=== PATIENT | male | born 1945 | race Caucasian/White ===

== ENCOUNTER 2023-08-27 19:20 | Observation (INO) | payer OTHER, SELFPAY ==
[2023-08-27 19:21] VITALS: BP 94/77; PULSE 81; RESP 17; TEMP 37; O2SAT 99; BMI 27.4
--- NOTE | 2023-08-27 19:28 | EKG12_ITS ---
Test Reason : SYNCOPE Blood Pressure : / mmHG Vent. Rate : 080 BPM Atrial Rate : 080 BPM P-R Int : 162 ms QRS Dur : 094 ms QT Int : 378 ms P-R-T Axes : 060 016 037 degrees QTc Int : 435 ms Sinus rhythm with occasional Premature ventricular complexes Nonspecific ST abnormality Abnormal ECG Confirmed by VIRAJ COATES, LEANNE ([id number]), offline editor ALAINA MCKEON ([id number]) on 08/28/2023 11:41:12 AM Referred By: Confirmed By:LEANNE CALI MD
--- NOTE | 2023-08-27 19:29 | RAD_ITS ---
INDICATION: chest pain EXAMINATION/TECHNIQUE: X-RAY - XR Chest 1 View COMPARISON: None. FINDINGS: The lungs are clear. Tortuous and calcified thoracic aorta. The heart is mildly enlarged. No pleural effusion or pneumothorax. Degenerative changes of the thoracic spine and shoulders. RAD/Chest 1 View (Portable) IMPRESSION: No acute radiographic abnormalities. Electronically Signed: Erwin Edwards MD at 21:25 EDT ,
[2023-08-27 19:35] LABS: Absolute Lymphocyte Count 1.68 X10^3/uL (0.83-4.51); Basophil# 0.04 X10^3/uL; Basophil% 0.6 % (0-1); Eosinophil# 0.17 X10^3/uL; Eosinophils% 2.7 % (0-5); Hematocrit 32.4 % (40-54); Hemoglobin 11.2 g/dL (13.0-16.5); Lymphocyte # 1.68 X10^3/ul (0.83-4.51); Lymphocyte % 26.3 % (19-41); Mean Corp Hgb Conc 34.6 g/dL (32-36); Mean Corpuscular Hgb 32.9 pg (27.0-32.0); Mean Corpuscular Volume 95.3 fL (80-94); Mean Platelet Vol. 9.2 fl (6.2-12.0); Monocyte# 0.46 X10^3/uL; Monocyte% 7.2 % (0-10); NRBC Flagged by Analyzer 0 % (0-5); Neutrophil # 4.01 X10^3/uL (2.7-7.7); Neutrophil % 62.9 % (47-70); Platelet Count 137 K/mm3 (150-450); RBC Distribution Width SD 44.8 fl (35.1-43.9); White Blood Count 6.4 K/mm3 (4.4-11.0)
[2023-08-27 20:12] LABS: Anion Gap 4 (5-15); BUN 23 mg/dL (7-18); BUN/Creat Ratio 17.4 RATIO (10-20); Calcium,Total 8.6 mg/dL (8.5-10.1); Chloride 113 mmol/L (98-107); Creatinine, Serum 1.32 mg/dL (0.70-1.30); EST Glomerular Filtration Rate 56 mL/min (>60); Est Glom Filt Rate - Afr Amer 67 mL/min (>60); Glucose 124 mg/dL (74-106); Potassium 3.9 mmol/L (3.5-5.1); Sodium Level 143 mmol/L (136-145); Troponin-I HS 12 pg/mL (3.0-78.0)
[2023-08-27 20:21] VITALS: BP 127/67; PULSE 79; RESP 16; O2SAT 98
--- NOTE | 2023-08-27 20:44 | EDS_ITS ---
HPI History of Present Illness Chief Complaint: Syncope Narrative Narrative: 78-year-old male presenting after an episode of syncope. He is unable to narrow down the timeframe completely but states that recently he has been noting that when he does work around the house he has been getting chest pain so bad that he has to stop and rest he describes it as sharp and aching in the central portion of his chest and a half to rest until he gets better. He states he has a family history of cardiac disease from his father. He states he has not seen a doctor in 10 or 20 years. He takes vitamins at home. He states today he did a lot of work around his house and was going to walk next-door and while he was walking up the driveway was having very severe chest pain and became short of breath to the point that he fainted and he was near the road and somebody found him about 5 minutes later. He states he woke up and was still having chest pain and then was transported by EMS and estimates he might of had another 5 to 10 minutes of chest pain prior to arriving at [facility]. [facility] Medical History Chronic anemia CKD (chronic kidney disease), stage III Thrombocytopenia Medical History no medical history Home Medications NK 08/27/23 [History Last Taken Unknown] Allergy/AdvReac Type Severity Reaction Status Date / Time No Known Allergies Allergy Verified 08/27/23 19:21 Family History (Updated 08/27/23 @ 22:[address] Mely Redman MD) Father Heart disease CAD (coronary artery disease) Hypertension Mother No problems noted. Surgical History (Updated 08/27/23 @ 22:[address] Mely Redman MD) No history of previous surgery Surgical History no surgical history Social History (Updated 08/27/23 @ 22:[address] Mely Redman MD) household members: none Smoking Status: Never smoker alcohol intake: never substance use type: does not use ROS ROS ED Constitutional Constitutional ED: Denies chills, fever(s) or sweats Eyes Eyes: Denies blurry vision or change in vision ENT ENT ED: Denies ear pain or sore throat Cardiovascular Cardiovascular: Reports chest pain; Denies palpitations or racing heartbeat Respiratory/Chest Respiratory/Chest: Denies cough, dyspnea or sputum Gastrointestinal Gastrointestinal: Denies abdominal pain, constipation, diarrhea, nausea or vomiting Genitourinary Genitourinary ED: Denies dysuria, hematuria or urinary frequency Musculoskeletal Musculoskeletal: Denies arthralgias, myalgias or neck pain Integumentary Denies abscess, Abrasions or rash Neurologic Neurologic: Denies headache(s), paresthesias or weakness Psychiatric Psychiatric: Denies anxiety, depression, suicidal ideation or suicidal thoughts Endocrine Endocrinology: Denies polydipsia or polyuria EXAM Physical Exam Const Vital Signs: 08/27/23 19:21 08/27/23 19:21 08/27/23 19:38 Temperature 98.6 F Temperature Source Temporal Pulse Rate 81 Pulse Rate [Sitting (for 1 minute prior to obtaining)] Pulse Rate [Standing (for 1 minute prior to obtaining)] Respiratory Rate 17 Respiratory Effort Normal Non-Labored Respiratory Pattern Normal Blood Pressure 94/77 Blood Pressure [Lying] Blood Pressure [Sitting (for 1 minute prior to obtaining)] Blood Pressure [Standing (for 1 minute prior to obtaining)] Blood Pressure Mean 82 Blood Pressure Mean [Lying] Blood Pressure Mean [Sitting (for 1 minute prior to obtaining)] Blood Pressure Mean [Standing (for 1 minute prior to obtaining)] Pulse Ox 99 Oxygen Delivery Method Room Air Nasal Cannula 08/27/23 20:21 08/27/23 21:01 08/27/23 21:00 Temperature Temperature Source Pulse Rate 79 87 Pulse Rate [Sitting (for 1 minute prior to obtaining)] 85 Pulse Rate [Standing (for 1 minute prior to obtaining)] 87 Respiratory Rate 16 18 Respiratory Effort Respiratory Pattern Blood Pressure 127/67 H 128/64 H Blood Pressure [Lying] 132/65 H Blood Pressure [Sitting (for 1 minute prior to obtaining)] 134/71 H Blood Pressure [Standing (for 1 minute prior to obtaining)] 128/64 H Blood Pressure Mean 87 85 Blood Pressure Mean [Lying] 87 Blood Pressure Mean [Sitting (for 1 minute prior to obtaining)] 92 Blood Pressure Mean [Standing (for 1 minute prior to obtaining)] 85 Pulse Ox 98 100 Oxygen Delivery Method Room Air Room Air 08/27/23 22:00 Temperature 97.6 F L Temperature Source Pulse Rate 72 Pulse Rate [Sitting (for 1 minute prior to obtaining)] Pulse Rate [Standing (for 1 minute prior to obtaining)] Respiratory Rate 13 Respiratory Effort Respiratory Pattern Blood Pressure 167/70 H Blood Pressure [Lying] Blood Pressure [Sitting (for 1 minute prior to obtaining)] Blood Pressure [Standing (for 1 minute prior to obtaining)] Blood Pressure Mean 102 Blood Pressure Mean [Lying] Blood Pressure Mean [Sitting (for 1 minute prior to obtaining)] Blood Pressure Mean [Standing (for 1 minute prior to obtaining)] Pulse Ox 98 Oxygen Delivery Method Positive well nourished General Appearance ED: NAD; Negative for pallor HEENT Reports moist mucous membranes Eyes PERRL and EOMs intact bilaterally Chest Wall inspection of chest normal Resp normal respiratory effort and clear to auscultation bilaterally Auscultation: Negative for rales, rhonchi or wheezes Cardio regular rate and regular rhythm GI normal to inspection, nondistended, normoactive bowel sounds Neuro oriented x3 and CN's II-XII intact bilaterally Sensorium / Orientation: alert Skin no rashes or lesions noted General Skin Exam: Negative for jaundice or pallor MDM MDM MDM Narrative Medical decision making narrative: Patient presenting with chest pain on exertion which she has had on and off recently. He had an episode of syncope today and had a lot of chest pain and shortness of breath prior. Differential includes ACS, dehydration, pneumonia. Anemia, electrolyte abnormality, syncope, dysrhythmia. CBC was obtained to assess white blood cell count, hemoglobin, platelets. BMP to assess renal function, electrolytes, glucose. High-sensitivity troponin EKG to assess for ischemia. Chest x-ray to rule out pneumonia. CBC shows normal white blood cell count 6.4. Hemoglobin 0.2. Platelets 137. Creatinine slightly elevated 1.32 there was no comparison. Initial troponin 12. Delta troponin 43 for persistent today significant troponin change. EKG on my interpretation showed a sinus rhythm at 80 bpm without sign of ischemic change or chest x-ray on my interpretation showed no acute process. The radiologist agrees. Discussed with hospitalist for admission. Impression: 1. Chest pain 2. Elevated troponin Lab Data Attestation: I reviewed the patient's lab results. Labs: Laboratory Results - last 24 hr 08/27/23 08/27/23 19:26 21:29 WBC 6.4 RBC 3.40 L Hgb 11.2 L Hct 32.4 L MCV 95.3 H MCH 32.9 H MCHC 34.6 RDW Std Deviation 44.8 H RDW Coeff of Greg 13.0 Plt Count 137 L MPV 9.2 Immature Gran % (Auto) 0.300 Neut % (Auto) 62.9 Lymph % (Auto) 26.3 [place] % (Auto) 7.2 Eos % (Auto) 2.7 Baso % (Auto) 0.6 Absolute Neuts (auto) 4.0 Absolute Lymphs (auto) 1.68 Nucleated RBC % 0 Sodium 143 Potassium 3.9 Chloride 113 H Carbon Dioxide 26.0 Anion Gap 4 L BUN 23 H Creatinine 1.32 H Estim Creat Clear Calc 43.90 Est GFR (MDRD) Af Amer 67 Est GFR (MDRD) Non-Af 56 L BUN/Creatinine Ratio 17.4 Glucose 124 H Calcium 8.6 Troponin I High Sens 12 43 Radiography Diagnostic Testing: Clinical Impression(s) from Imaging Studies Chest X-Ray 08/27/23 19:29 IMPRESSION: No acute radiographic abnormalities. Electronically Signed: Erwin Edwards MD at 21:25 EDT , Discharge Plan Triage Chief Complaint: Syncope ED Provider: Arnulfo Sutherland Dx/Rx/DC Orders Primary Care Provider: Care Physician,No Primary
[2023-08-27 21:00] VITALS: BP 128/64; PULSE 87; RESP 18; O2SAT 100
[2023-08-27 21:01] VITALS: BP 128/64; BP 132/65; BP 134/71; PULSE 85; PULSE 87
[2023-08-27 21:51] LABS: Troponin-I HS 43 pg/mL (3.0-78.0)
[2023-08-27 22:00] VITALS: BP 167/70; PULSE 72; RESP 13; TEMP 36.4; O2SAT 98
--- NOTE | 2023-08-27 22:05 | HP.PCM.HOS_ITS ---
HPI - General General Date of Admission: 08/27/23 Date of Service: 08/27/23 Chief Complaint: Chest pain, dyspnea, syncopal event. HPI Narrative The patient is a 78 y/o M w/ PMHx: Suspected CKD stage III unclear subtype, Chronic anemia who presents to the [facility] ED on 08/27/23 with history of episodes of exertional chest discomfort which started recently over the last 2 months, improving when he rests, described as sharp and aching in the midsternal chest with no specific radiation with associated mild dyspnea with recurrent episode on day of presentation while he was walking up the driveway with similar chest discomfort however dyspnea was more pronounced and he became lightheaded and dizzy and passed out supposedly found approximately 5 minutes following with ongoing chest discomfort upon his awakening with EMS evaluation with admini stration of sublingual nitroglycerin with resolution of chest pain following this after 5 to 10 minutes with transition then to the ED for further evaluation. He notes with this recent events of chest discomfort his pain was rated 10 out of 10 in severity at its worst with dyspnea and some diaphoresis but no nausea or emesis. Currently in the ED he notes he is chest pain-free. Workup in the ED included T98.6, heart rate 81, BP 94/77, respiratory rate 17, 99% on room air, heart rate orthostatics not marked appearing, BP orthostatics not marked appearing either, most recent repeat blood pressure 132/65, CBC with WBC 6.4, hemoglobin 11.2, MCV 95.3, platelet 137 without marked shift, BMP with chloride 113, BUN/creatinine 23/1.32, GFR 56, glucose 124, troponin 12 with repeat delta 43, chest x-ray with no acute cardiopulmonary findings, EKG sinus rhythm with nonspecific ST-T changes with no acute evidence of ischemia. In the ED discussed patient with ED physician requested full-strength aspirin therapy be administered. [facility] Medical History Chronic anemia CKD (chronic kidney disease), stage III Thrombocytopenia Medical History no medical history Home Medications NK 08/27/23 [History Last Taken Unknown] Allergy/AdvReac Type Severity Reaction Status Date / Time No Known Allergies Allergy Verified 08/27/23 19:21 Family History (Updated 08/27/23 @ 22:[address] Mely Redman MD) Father Heart disease CAD (coronary artery disease) Hypertension Mother No problems noted. Surgical History (Updated 08/27/23 @ 22:[address] Mely Redman MD) No history of previous surgery Surgical History no surgical history Social History (Updated 08/27/23 @ 22:[address] Mely Redman MD) household members: none Smoking Status: Never smoker alcohol intake: never substance use type: does not use ROS ROS Narrative Admission Review of Systems: CONSTITUTIONAL: No weight loss, fever, chills, + weakness or fatigue. HEENT: Eyes: No visual loss, blurred vision, double vision or yellow sclerae. Ears, Nose, Throat: No hearing loss, sneezing, congestion, runny nose or sore throat. SKIN: No rash or itching, lesions, wounds. CARDIOVASCULAR: + Chest pain, syncopal event. No palpitations, edema, orthopnea. RESPIRATORY: + Exertional dyspnea with chest discomfort. No cough or sputum, wheezing, hemoptysis. GASTROINTESTINAL: No anorexia, nausea, vomiting or diarrhea, abdominal pain, melena, BRBPR. GENITOURINARY: No dysuria, frequency, urgency or retention. NEUROLOGICAL: No headache, dizziness, syncope, paralysis, ataxia, numbness or tingling in the extremities, focal weakness, change in bowel or bladder control, seizure. MUSCULOSKELETAL: + muscle, back pain, joint pain or stiffness. HEMATOLOGIC: + Possibly chronic anemia, no reported easy bleeding/bruising history. LYMPHATICS: No enlarged nodes. No history of splenectomy. PSYCHIATRIC: No history of depression or anxiety. ENDOCRINOLOGIC: + reports of sweating. No cold or heat intolerance. No polyuria or polydipsia. ALLERGIES: No history of asthma, hives, eczema or rhinitis. Vital Signs Vital Signs Vital Signs: 08/27/23 19:21 08/27/23 19:21 08/27/23 19:38 Temperature 98.6 F Temperature Source Temporal Pulse Rate 81 Pulse Rate [Sitting (for 1 minute prior to obtaining)] Pulse Rate [Standing (for 1 minute prior to obtaining)] Respiratory Rate 17 Respiratory Effort Normal Non-Labored Respiratory Pattern Normal Blood Pressure 94/77 Blood Pressure [Lying] Blood Pressure [Sitting (for 1 minute prior to obtaining)] Blood Pressure [Standing (for 1 minute prior to obtaining)] Blood Pressure Mean 82 Blood Pressure Mean [Lying] Blood Pressure Mean [Sitting (for 1 minute prior to obtaining)] Blood Pressure Mean [Standing (for 1 minute prior to obtaining)] Pulse Ox 99 Oxygen Delivery Method Room Air Nasal Cannula 08/27/23 20:21 08/27/23 21:01 08/27/23 21:00 Temperature Temperature Source Pulse Rate 79 87 Pulse Rate [Sitting (for 1 minute prior to obtaining)] 85 Pulse Rate [Standing (for 1 minute prior to obtaining)] 87 Respiratory Rate 16 18 Respiratory Effort Respiratory Pattern Blood Pressure 127/67 H 128/64 H Blood Pressure [Lying] 132/65 H Blood Pressure [Sitting (for 1 minute prior to obtaining)] 134/71 H Blood Pressure [Standing (for 1 minute prior to obtaining)] 128/64 H Blood Pressure Mean 87 85 Blood Pressure Mean [Lying] 87 Blood Pressure Mean [Sitting (for 1 minute prior to obtaining)] 92 Blood Pressure Mean [Standing (for 1 minute prior to obtaining)] 85 Pulse Ox 98 100 Oxygen Delivery Method Room Air Room Air Weight Weight: 180 lb 5.41 oz Body Mass Index (BMI) 27.4 Physical Exam Narrative Physical Examination: General: Awake, alert, oriented x 3 and cooperative, seated upright in the ED bed in no apparent distress, denies any current chest pain. Skin: Normal color, normal turgor, no icterus, no cyanosis. HEENT: AT/NC, EOMI, PERRLA, mildly dry MM, no carotid bruits or JVD noted. Lungs: Mildly diminished, greater bases, appropriate effort, no rales, ronchi or wheezing. Heart: Regular rate and rhythm; no gallop, rub audible, + SM present. Abdomen: Soft, mildly overweight, NTTP, ND, mildly hyperactive BS, no appreciated HSM. Extremities: No cyanosis, no clubbing, mild ankle not markedly pitting edema present. Neurological: Patient awake, alert, oriented as noted, cognitive function inta ct; pupils equally reactive to light and accommodation, cranial nerves grossly normal, moving all 4 extremities, no focal deficits, strength mildly to moderately globally decreased. Psychiatric: Affect appears fatigued otherwise normal, no acute evidence of depressive or anxiety feelings. Results Lab / Micro Data 08/27/23 19:26 08/27/23 19:26 Labs: Laboratory Results - last 24 hr 08/27/23 19:26: WBC 6.4, RBC 3.40 L, Hgb 11.2 L, Hct 32.4 L, MCV 95.3 H, MCH 32.9 H, MCHC 34.6, RDW Std Deviation 44.8 H, RDW Coeff of Greg 13.0, Plt Count 137 L, MPV 9.2, Immature Gran % (Auto) 0.300, Neut % (Auto) 62.9, Lymph % (Auto) 26.3, [place] % (Auto) 7.2, Eos % (Auto) 2.7, Baso % (Auto) 0.6, Absolute Neuts (auto) 4.0, Absolute Lymphs (auto) 1.68, Nucleated RBC % 0, Sodium 143, Potassium 3.9, Chloride 113 H, Carbon Dioxide 26.0, Anion Gap 4 L, BUN 23 H, Creatinine 1.32 H, Estim Creat Clear Calc 43.90, Est GFR (MDRD) Af Amer 67, Est GFR (MDRD) Non-Af 56 L, BUN/Creatinine Ratio 17.4, Glucose 124 H, Calcium 8.6, Troponin I High Sens 12 08/27/23 21:29: Troponin I High Sens 43 Imaging Radiology Impression Chest X-Ray 08/27/23 19:29 IMPRESSION: No acute radiographic abnormalities. Electronically Signed: Erwin Edwards MD at 21:25 EDT , Assessment & Plan Assessment/Plan (1) Unstable angina: (2) Syncope: PLAN: Plan The patient is a 78 y/o M w/ PMHx: Suspected CKD stage III unclear subtype, Chronic anemia who presents to the [facility] ED on 08/27/23 with history of episodes of exertional chest discomfort which started recently over the last week, improving when he rests, described as sharp and aching in the midsternal chest with no specific radiation with associated mild dyspnea with recurrent episode on day of presentation while he was walking up the driveway with similar chest discomfort however dyspnea was more pronounced and he became lightheaded and dizzy and passed out supposedly found approximately 5 minutes following with ongoing chest discomfort upon his awakening with EMS evaluation with administration of sublingual nitroglycerin with resolution of chest pain following. #1. Chest pain with associated syncopal event with incidentally noted murmur on evaluation: EKG in ED SR with nonspecific ST-T changes with no acute evidence of ischemia, CXR w/ no concerning acute cardiopulmonary finding, initial trop 12 with repeat delta 43. Will admit to PCU, place on a monitored bed to assure no acute myocardial infarction with serial cardiac enzymes and EKGs. If repeat serial cardiac enzymes and EKGs remain unremarkable will pursue a.m. cardiac stress testing. Given syncopal event we will also request echocardiogram. FLP in AM. Magnesium level requested. If any changes or concerning events low threshold to involve cardiology. ASA, NG, morphine. #2. Suspected Chronic Kidney Disease Stage III: Admission BUN/Cr 23/1.32, GFR 56, baseline renal function unknown as patient has not been to a physician in 10 to 20 years thus no lab comparisons, repeat BMP in AM to further elucidate chronicity. #3. Macrocytic anemia, unclear chronicity: Admission hemoglobin 11.2, MCV 95.3, no comparison labs available, will obtain iron panel, ferritin, vitamin B12 and folic acid levels to be cautious given patient high risk for poor follow-up given history of not following with any physician, will repeat CBC in AM. #4. Hyperglycemia, mild: Admission glucose 124, not markedly elevated but given for follow-up history be cautious obtain hemoglobin A1c. #5. Thrombocytopenia, unclear chronicity: Admission platelets 137, unclear if this is chronic or acute in nature as no comparison labs, will trend CBC. #6. Overweight: Weight loss and lifestyle changes encouraged. #7. DVT prophylaxis: Lovenox. #8. CODE status: Patient HCPOA and living will are not in place but he notes his youngest son who is present would be his decision-maker if medically necess ning. Discussed CODE status at length including difference between FULL code, DNR-CCA and DNR-CC status. Following discussions about the differences in these status, requested DNR-CCA, no intubation status. Advanced Care Planning Face to Face Time: 16 minutes. Charges/Coding Visit Charges Inpatient E&M: 00394 Init Hosp L2 Procedures Hospitalists Procedures: 89722 Advncd Care Plan 30 Min
--- NOTE | 2023-08-27 23:13 | EKG12_ITS ---
Test Reason : admission ekg Blood Pressure : / mmHG Vent. Rate : 067 BPM Atrial Rate : 067 BPM P-R Int : 160 ms QRS Dur : 094 ms QT Int : 390 ms P-R-T Axes : 057 016 039 degrees QTc Int : 412 ms Normal sinus rhythm Normal ECG When compared with ECG of 27-AUG-2023 19:29, MANUAL COMPARISON REQUIRED, DATA IS UNCONFIRMED Confirmed by VIRAJ COATES, LEANNE ([id number]), purchase request editor DENA FONTAINE ([id number]) on 08/29/2023 9:41:13 AM Referred By: Confirmed By:LEANNE CALI MD
[2023-08-27 23:21] VITALS: BMI 24.3
[2023-08-27 23:24] VITALS: BP 132/92; PULSE 84; RESP 16; TEMP 36.6; O2SAT 98
[2023-08-27] MEDS: Aspirin 81 MG TAB.CHEW 324 MG PO (23:45)
[2023-08-27] MEDS: 0.9% Normal Saline (1000mL) 1,000 ML 100 ML IV (23:50)
[2023-08-28 02:19] LABS: Troponin-I HS 48 pg/mL (3.0-78.0)
[2023-08-28 05:16] VITALS: BMI 24.4
--- NOTE | 2023-08-28 05:55 | EKG12_ITS ---
Test Reason : AM ekg Blood Pressure : / mmHG Vent. Rate : 072 BPM Atrial Rate : 072 BPM P-R Int : 158 ms QRS Dur : 096 ms QT Int : 386 ms P-R-T Axes : 061 020 039 degrees QTc Int : 422 ms Sinus rhythm with Premature supraventricular complexes Otherwise normal ECG Confirmed by VIRAJ COATES, LENANE ([id number]), publishing editor DENA FONTAINE ([id number]) on 08/29/2023 9:40:26 AM Referred By: Confirmed By:LEANNE CALI MD
--- NOTE | 2023-08-28 05:55 | ECHOD_ITS ---
Reason For Study: SYNCOPE/NEAR SYNCOPE Procedure This was a 2D Doppler, Color Flow transthoracic echocardiogram. Exam performed in department. Left Ventricle Normal LV size. Moderate concentric left ventricular hypertrophy. Left ventricular systolic function is normal. The estimated ejection fraction is 65 %. No regional wall motion abnormalities noted. Right Ventricle Normal RV size. Normal systolic function. Atria Normal left atrium. Normal right atrium. Mitral Valve Normal mitral valve. Tricuspid Valve Normal tricuspid valve. Mild tricuspid valve insufficiency. Pulmonary artery systolic pressure is 23 mmHg. Aortic Valve Severe focal aortic valve calcification. Peak aortic valve gradient 82 mmHg. Mean aortic valve gradient 50 mmHg. Severe aortic stenosis. Mild (1+) aortic valve insufficiency. Pulmonic Valve Normal pulmonic valve. Great Vessels Normal aortic root. The pulmonary artery is normal size. Normal inferior vena cava. Pericardium/Pleural No pericardial effusion. MMode/2D Measurements & Calculations LVIDd: 4.2 cm IVSd: 1.5 cm LVOT diam: 2.0 cm LVIDs: 2.9 cm LVPWd: 1.4 cm LVOT area: 3.3 cm2 RVDd: 3.4 cm FS: 31.5 % Ao root diam: 3.2 cm LAV(MOD-bp): 56.1 ml LVAd ap4: 29.9 cm2 LAV(MOD-bp) Indexed: 28.1 ml/m2 LVLd ap4: 7.7 cm LAV(MOD-sp2): 53.8 ml EDV(MOD-sp4): 95.3 ml LAV(MOD-sp4): 55.2 ml EDV(sp4-el): 98.4 ml LVAs ap4: 15.7 cm2 LVLs ap4: 6.5 cm ESV(MOD-sp4): 32.9 ml ESV(sp4-el): 32.3 ml EF(MOD-sp4): 65.5 % EF(sp4-el): 67.2 % SV(MOD-sp4): 62.3 ml SV(sp4-el): 66.1 ml LA A4 area: 19.9 cm2 LA dimension(2D): 4.0 cm RA A4 area: 16.1 cm2 TAPSE: 2.1 cm Time Measurements MV dec time: 0.25 sec Doppler Measurements & Calculations MV E max eagle: 91.8 cm/sec Lat Peak E' Eagle: 6.4 cm/sec Med Peak E' Eagle: 5.8 cm/sec MV A max eagle: 95.0 cm/sec E/E' lat: 14.3 E/E' med: 15.9 MV E/A: 0.97 Ao V2 max: 451.4 cm/sec AI max eagle: 369.7 cm/sec LV V1 max: 75.3 cm/sec Ao max P.5 mmHg AI max P.7 mmHg LV V1 max P.3 mmHg Ao V2 mean: 337.1 cm/sec LV V1 mean P.3 mmHg Ao mean P.3 mmHg AI dec slope: 200.9 cm/sec2 LV V1 mean: 53.1 cm/sec Ao V2 VTI: 125.2 cm AI P1/2t: 539.0 msec LV V1 VTI: 21.3 cm AV (velocity ratio): 0.17 DAWOOD(I,D): 0.55 cm2 DAWOOD(V,D): 0.55 cm2 SV(LVOT): 69.4 ml PA V2 max: 134.0 cm/sec TR max eagle: 222.8 cm/sec TR max P.9 mmHg ECHO/Echo Complete Interpretation Summary Normal LV size. Moderate concentric left ventricular hypertrophy. The estimated ejection fraction is 65 %. Mean aortic valve gradient 50 mmHg. Severe focal aortic valve calcification. Ordering Physician: Mely Redman Performed By: Flor Souza RDCS
[2023-08-28 06:26] VITALS: BP 132/67; PULSE 64; RESP 18; TEMP 35.7; O2SAT 96
[2023-08-28] MEDS: Aspirin E.C. 81 MG Tablet PO (06:28)
[2023-08-28 07:47] LABS: Hemoglobin A1c 4.9 % (3.8-5.6)
[2023-08-28 07:54] VITALS: BP 149/70; PULSE 66; RESP 14; TEMP 36.1; O2SAT 98
[2023-08-28 08:07] LABS: Absolute Lymphocyte Count 1.12 X10^3/uL (0.83-4.51); Absolute Neutrophil Count 5.1 X10^3/uL (2.0-7.7); Basophil# 0.04 X10^3/uL; Basophil% 0.6 % (0-1); Eosinophil# 0.13 X10^3/uL; Eosinophils% 1.9 % (0-5); Hematocrit 30.8 % (40-54); Hemoglobin 10.7 g/dL (13.0-16.5); Lymphocyte # 1.12 X10^3/ul (0.83-4.51); Lymphocyte % 16.3 % (19-41); Mean Corp Hgb Conc 34.7 g/dL (32-36); Mean Corpuscular Hgb 32.7 pg (27.0-32.0); Mean Corpuscular Volume 94.2 fL (80-94); Mean Platelet Vol. 8.9 fl (6.2-12.0); Monocyte# 0.44 X10^3/uL; Monocyte% 6.4 % (0-10); NRBC Flagged by Analyzer 0 % (0-5); Neutrophil # 5.14 X10^3/uL (2.7-7.7); Neutrophil % 74.5 % (47-70); Platelet Count 119 K/mm3 (150-450); RBC Distribution Width CV 13.1 % (11.6-14.6); RBC Distribution Width SD 45.1 fl (35.1-43.9); Red Blood Count 3.27 M/mm3 (4.6-6.2); White Blood Count 6.9 K/mm3 (4.4-11.0)
[2023-08-28 08:23] LABS: AST(SGOT) 18 U/L (15-37); Alanine Aminotransfer ALT/SGPT 16 U/L (16-61); Alkaline Phosphatase 73 U/L (45-117); Anion Gap 6 (5-15); BUN 17 mg/dL (7-18); BUN/Creat Ratio 16.3 RATIO (10-20); Chloride 114 mmol/L (98-107); Cholesterol 145 mg/dL (200); Creatinine, Serum 1.04 mg/dL (0.70-1.30); EST Glomerular Filtration Rate 73 mL/min (>60); Est Glom Filt Rate - Afr Amer 89 mL/min (>60); Estimated Creatinine Clearance 61.34 ml/min; Ferritin 90 ng/mL (26-388); Globulin 2.9 g/dL (2.2-4.2); Glucose 90 mg/dL (74-106); High Density Lipoprotein 33 mg/dL; Iron 62 ug/dL (65-175); Iron Binding Capacity,Total 207 ug/dL (250-450); Potassium 3.9 mmol/L (3.5-5.1); Protein, Total 5.9 g/dL (6.4-8.2); Sodium Level 144 mmol/L (136-145); Triglycerides 60 mg/dL; Very Low Density Lipoprotein 12 mg/dL (5-40)
[2023-08-28 08:54] VITALS: O2SAT 98
[2023-08-28 08:59] LABS: Vitamin B12 987 pg/mL (211-911)
--- NOTE | 2023-08-28 12:11 | STRESSREP ---
Stress Test Report Pharmacologic myocardial perfusion stress test. 78-year-old man with a history of chest pain Resting EKG demonstrates sinus rhythm with a rate of 67 bpm. Resting blood pressure is 152/78 mmHg. 0.4 mg of regadenoson was infused per usual protocol followed by rapid intravenous saline flush injection. Continuous EKG monitoring was performed. The maximum heart rate was 83 bpm which was 58% of max impacted heart rate the maximum workload was 1 metabolic equivalent. At rest there were no ST or T wave changes noted to suggest ischemia and at peak infusion nonspecific ST changes were noted which did not meet the criteria for ischemia. No clinical angina is noted. The final blood pressure was 124/70 mmHg. Myocardial perfusion protocol. 12 point mCi of technetium 99m sestamibi was injected at rest. 0.4 mg of regadenoson was infused per usual protocol. At peak infusion 34.4 mCi of technetium 99m sestamibi was injected stress images were obtained stress and rest images were reconstructed and compared in the short axis vertical long and horizontal long axis. Gated images were also obtained. Perfusion SPECT analysis: Review of the stress images demonstrate normal uptake of tracer noted in all areas of the myocardium. The resting images similar demonstrated normal uptake of tracer noted in all areas of the myocardium. No areas of reversibility are noted to suggest ischemia and no previous infarct is noted. Gated SPECT analysis: The gated ejection fraction is 57%. Conclusion: Normal pharmacologic myocardial perfusion stress test. Preserved ejection fraction.
--- NOTE | 2023-08-28 13:07 | CT_ITS ---
STUDY: CT ABDOMEN AND PELVIS WITHOUT CONTRAST REASON FOR EXAM: Male, 78 years old. new iron def anemia w/ change in BMs RADIATION DOSAGE (If Supplied By Facility): CTDIvol = ( 9.54 ) mGy, DLP = ( 512.57 ) mGycm TECHNIQUE: Transaxial images were obtained from the dome of the diaphragm to the symphysis pubis without oral contrast, and without intravenous contrast. Sagittal and coronal images were reconstructed. Individualized dose optimization techniques were used for this CT. 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 FINDINGS: The visualized lung bases are unremarkable. The visualized portions of the heart are within normal limits. Normal liver. Normal gallbladder and extrahepatic biliary system. Normal spleen. Normal pancreas. Normal bilateral adrenal glands. Multiple right renal cortical cyst measures 5.8 cm. Moderate bilateral hydronephrosis. Severe left hydronephrosis and hydroureter due to a 4 mm distal ureterolith. Oral contrast in the stomach. Oral contrast throughout the small bowel. Oral contrast in the right colon. Appendix not identified. Normal abdominal aorta. Normal inferior vena cava. Normal retroperitoneum. Normal urinary bladder. Bilateral fat-containing inguinal hernias. Normal abdominal wall. Spondylosis. CT/Abdomen/Pel W ORAL Cont Only IMPRESSION: Severe left hydronephrosis due to a 12 mm distal ureterolith. [id number] right hydronephrosis but no radiodense ureterolithiasis on the right side. Electronically Signed: Lance Nieves MD at 18:34 EDT ,
[2023-08-28 14:00] VITALS: BP 130/66; PULSE 63; RESP 14; TEMP 36.2; O2SAT 100
--- NOTE | 2023-08-28 15:40 | CHAPLAIN ---
Type of Pastoral Visit _x__ Initial Visit ___ Follow-up Visit ___ On-call Visit ___ General Patient Visit ___ Spiritual Assessment ___ Family Conference ___ Bereavement ___ Rapid Response ___ Code Blue ___ Other (describe below) Pastoral Care Referral From _x__ Patient ___ Family ___ Nurse ___ Physician ___ Neon Light Installer ___ Portable Power Tool Repairer ___ Other (describe below) Sacrament/Intervention _x__ Active listening ___ Anointing ___ Baptist ___ Bereavement ___ Communion ___ [place] exploration ___ _x__ Life review _x__ Prayer ___ Reconciliation ___ Sacrament of Sick _x__ Supportive presence ___ Wedding ___ Other (describe below) Pastoral Comments patient is an Marcelino Lima and is now ; pt had an episode yesterday and is uncertain about what he meant and what we be done for him; pt appears to be content and admits to some difficulty in adjustments to his life as it is now in last four years; prayer welcomed
[2023-08-28 18:01] VITALS: BP 137/70; PULSE 70; RESP 16; TEMP 36.4; O2SAT 97
--- NOTE | 2023-08-28 18:08 | PCM.PN.HOSP ---
Reason for Visit Reason for Visit: Diagnoses Unstable angina (08/27/23) Syncope and collapse (08/27/23) Subjective Subjective No acute meds overnight. Patient seen at bedside later this morning, son present. Patient was sitting up comfortably in bed, conversing normally, no acute distress. He completed the cardiac stress test this morning and had no chest pain or discomfort during the test. Patient denies any episodes of chest pain overnight or yet today, however he does note he has not been exerting self much here. Patient otherwise denies any abdominal pain or discomfort. He denies any difficulty or pain with urination. No other acute concerns. Objective Data Objective Data Vital Signs: Vital Signs Temp Pulse Resp BP Pulse Ox O2 Del Method 97.6 F L 70 16 137/70 H 97 Room Air 08/28/23 18:01 08/28/23 18:01 08/28/23 18:01 08/28/23 18:01 08/28/23 18:01 08/28/23 18:01 Oxygen Delivery Method Room Air Weight: 79.5 kg Body Mass Index (BMI) 24.4 Intake & Output: Intake and Output for Last 24 Hours 08/26/23 08/27/23 08/28/23 23:59 23:59 23:59 Intake Total 0 / 0 2275 / 2275 Balance 0 / 0 2275 / 2275 Lab / Micro Data 08/28/23 06:45 08/28/23 06:45 Labs: Laboratory Results - last 24 hr 08/27/23 19:26: WBC 6.4, RBC 3.40 L, Hgb 11.2 L, Hct 32.4 L, MCV 95.3 H, MCH 32.9 H, MCHC 34.6, RDW Std Deviation 44.8 H, RDW Coeff of Greg 13.0, Plt Count 137 L, MPV 9.2, Immature Gran % (Auto) 0.300, Neut % (Auto) 62.9, Lymph % (Auto) 26.3, Blount % (Auto) 7.2, Eos % (Auto) 2.7, Baso % (Auto) 0.6, Absolute Neuts (auto) 4.0, Absolute Lymphs (auto) 1.68, Nucleated RBC % 0, Sodium 143, Potassium 3.9, Chloride 113 H, Carbon Dioxide 26.0, Anion Gap 4 L, BUN 23 H, Creatinine 1.32 H, Estim Creat Clear Calc 43.90, Est GFR (MDRD) Af Amer 67, Est GFR (MDRD) Non-Af 56 L, BUN/Creatinine Ratio 17.4, Glucose 124 H, Calcium 8.6, Troponin I High Sens 12 08/27/23 21:29: Magnesium 2.0, Troponin I High Sens 43 08/28/23 01:47: Troponin I High Sens 48 08/28/23 06:45: WBC 6.9, RBC 3.27 L, Hgb 10.7 L, Hct 30.8 L, MCV 94.2 H, MCH 32.7 H, MCHC 34.7, RDW Std Deviation 45.1 H, RDW Coeff of Greg 13.1, Plt Count 119 L, MPV 8.9, Immature Gran % (Auto) 0.300, Neut % (Auto) 74.5 H, Lymph % (Auto) 16.3 L, Blount % (Auto) 6.4, Eos % (Auto) 1.9, Baso % (Auto) 0.6, Absolute Neuts (auto) 5.1, Absolute Lymphs (auto) 1.12, Nucleated RBC % 0, Sodium 144, Potassium 3.9, Chloride 114 H, Carbon Dioxide 24.0, Anion Gap 6, BUN 17, Creatinine 1.04, Estim Creat Clear Calc 61.34, Est GFR (MDRD) Af Amer 89, Est GFR (MDRD) Non-Af 73, BUN/Creatinine Ratio 16.3, Glucose 90, Hemoglobin A1c 4.9, Calcium 8.0 L, Iron 62 L, TIBC 207 L, Iron Saturation 30.0, Ferritin 90, Total Bilirubin 0.50, AST 18, ALT 16, Alkaline Phosphatase 73, Total Protein 5.9 L, Albumin 3.0 L, Globulin 2.9, Albumin/Globulin Ratio 1.0, Triglycerides 60, Cholesterol 145, LDL Cholesterol 100, VLDL Cholesterol 12, HDL Cholesterol 33 L, Vitamin B12 987 H, Folate 36.20 Radiography Diagnostic Testing: Radiology Impression Chest X-Ray 08/27/23 19:29 IMPRESSION: No acute radiographic abnormalities. Electronically Signed: Erwin Edwards MD at 21:25 EDT , Physical Exam Const alert, oriented x3, no apparent distress and average body habitus General Appearance: cooperative and comfortable HEENT normocephalic, head/scalp atraumatic, hearing grossly normal bilaterally, nasal mucous membranes and turbinates normal and moist oral mucous membranes Eyes PERRL, EOMs intact bilaterally and conjunctivae normal Neck full ROM Chest inspection of chest normal Resp normal respiratory effort, normal air movement, no use of accessory muscles and clear to auscultation bilaterally Cardio regular rate, regular rhythm, no murmurs and peripheral pulses 2+ throughout GI normal to inspection, nondistended, normoactive bowel sounds, soft to palpation, non-tender and non-distended Back/Spine normal ROM Extremity normal to inspection, full ROM and no pedal edema Skin no rashes or lesions noted Neuro moves all extremities and no focal motor deficits Speech: speech normal Psych mental status grossly normal Assessment & Plan Assessment/Plan (1) Chest pain: (2) Kidney stone on left side: (3) Hydronephrosis due to obstruction of ureter: (4) Anemia: PLAN: Plan Patient is a 78-year-old male who presented [facility] ED on 08/27/2023 with exertional chest pain. 1. Chest pain with exertion ? Troponin trend on admit 12 > 43 > 48. EKG with normal sinus rhythm, no ST changes. Chest x-ray nonacute. Stress test on 08/27 with normal EF, no ischemic changes. Seems most likely that his chest pain is actually referred pain from the kidney stone as noted below. No further cardiac workup needed. 2. Left-sided kidney stone with hydronephrosis ? CT abdomen pelvis with oral contrast on 08/27 showed severe left hydronephrosis due to a 12 mm distal ureterolith, as well has mild to moderate right hydro process but no radiodense urolithiasis seen on right side. Kidney function has returned to normal and patient has had adequate urine output. Straight cath on 08/[address] scan with only 100 cc of urine removed and no urine retention after cath. Unfortunately we have no urology services here this week. Given patient's stability, will likely plan for discharge home tomorrow with close outpatient follow-up with Dr. Koehler next week. 3. Mild iron deficiency anemia ? Hemoglobin 11.2 on admit, decreased to 10.7 on hospital day 2. No previous baseline available. Iron studies showed iron deficiency anemia. Patient denied any dark stools but has never had a colonoscopy and discussed possible change in bowel movements so CT abdomen pelvis with oral contrast was obtained. No bowel abnormalities but did show kidney stone as noted above. Suspect blood loss is from kidney stone. Treatment plan as above. Follow-up a.m. CBC. Will hold on iron supplement for now. 4. Mild creatinine elevation, improved ? Creatinine 1.32 on admit, improved to 1.04 on hospital day 2 after IV fluid resuscitation. Adequate urine output. No need to monitor BMP further. DVT prophylaxis: Lovenox CODE STATUS: DNR CCA, DNI Expected disposition: Home, 1 to 2 days Total clinical time spent by myself addressing the patient's medical issues, reviewing all the data, and collaborating with patient's care team: 35 minutes. Charges/Coding Visit Charges Inpatient E&M: 59449 Subs Hosp L2
[2023-08-28 23:02] VITALS: BP 119/55; PULSE 69; RESP 18; TEMP 36; O2SAT 97
[2023-08-29 04:46] VITALS: BP 112/58; PULSE 65; RESP 18; TEMP 35.9; O2SAT 96
[2023-08-29 06:00] VITALS: BMI 23.7
[2023-08-29 06:06] VITALS: BP 121/64; BP 121/68; BP 140/73; PULSE 65; PULSE 67; PULSE 70
[2023-08-29 06:27] LABS: Hematocrit 31.5 % (40-54); Hemoglobin 10.8 g/dL (13.0-16.5); Mean Corp Hgb Conc 34.3 g/dL (32-36); Mean Corpuscular Hgb 32.5 pg (27.0-32.0); Mean Corpuscular Volume 94.9 fL (80-94); Mean Platelet Vol. 8.6 fl (6.2-12.0); Platelet Count 136 K/mm3 (150-450); RBC Distribution Width CV 13.2 % (11.6-14.6); RBC Distribution Width SD 45.3 fl (35.1-43.9); Red Blood Count 3.32 M/mm3 (4.6-6.2); White Blood Count 6.3 K/mm3 (4.4-11.0)
[2023-08-29 07:08] VITALS: O2SAT 96
[2023-08-29 09:48] VITALS: BP 107/56; PULSE 71; RESP 14; TEMP 36.8; O2SAT 98
[2023-08-29] MEDS: Aspirin E.C. 81 MG Tablet PO (09:52)
--- NOTE | 2023-08-29 11:34 | PCM.DC ---
Discharge Instructions Diet Discharge Diet: No restrictions Activity Discharge Activity: No Restrictions Follow Up Care Test Results: Test results from this visit will be discussed in further detail at your follow-up appointment, if applicable. Discharge Plan Admission Admit Date/Time: 08/27/23 22:08 Primary Reason for Your Visit: chest pain Attending Provider: Valentin Moreland Primary Care Provider: Care Physician,No Primary Consulting Providers: Mely Redman Instructions Additional Instructions / Restrictions: Dr. Koehler's office will call to schedule you for a follow up appointment early to mid next week. Take Tylenol as needed for pain until that appointment. Discharge Orders/Prescriptions Referrals / Follow Up: Mitchell Koehler MD [Med Staff - Active Staff] - (Needs appt by Sunday September 03, 2023.) Care Physician,No Primary [Primary Care Provider] - Disposition Disposition (needs filled in before D/C Order can be placed): Home, Self Care
--- NOTE | 2023-08-29 11:37 | PCM.DC.SUM ---
Providers Date of Admission: 08/27/23 Date of Discharge: 08/29/23 Primary Care Physician: No Primary Care Phys Reason For Visit: CHEST PAIN Diagnosis Discharge Diagnosis (1) Chest pain: Status: Acute Code(s): R07.9 - Chest pain, unspecified (2) Kidney stone on left side: Status: Acute Code(s): N20.0 - Calculus of kidney (3) Hydronephrosis due to obstruction of ureter: Status: Acute Code(s): N13.1 - Hydronephrosis with ureteral stricture, not elsewhere classified (4) Anemia: Status: Acute Code(s): D64.9 - Anemia, unspecified Medications at Discharge Home Medications tramadol 50 mg tablet 50 mg PO TID PRN pain 5 days #15 tabs 08/29/23 Hospital Course Operations None Procedures Stress test, Transthoracic echo and - (Chest x-ray, CT abdomen with oral contrast) Summary of Care Provided Minutes Spent on Discharge: 35 Hospital Course: Patient is a 78-year-old male who presented [facility] ED on 08/27/2023 with exertional chest pain. Hospital course as noted below. Discharged home with no therapy needs in stable condition on 08/28. 1. Chest pain with exertion; severe aortic stenosis ? Troponin trend on admit 12 > 43 > 48. EKG with normal sinus rhythm, no ST changes. Chest x-ray nonacute. Stress test on 08/27 with normal EF, no ischemic changes. Echo 08/27 showed EF 65%, moderate concentric LV hypertrophy, severe aortic stenosis. There is concern the patient has symptomatic aortic stenosis. Discussed with cardiology, suyapa for close outpatient follow-up, has appointment scheduled for next FridaySeptember 02. 2. Left-sided kidney stone with hydronephrosis ? CT abdomen pelvis with oral contrast on 08/27 showed severe left hydronephrosis due to a 12 mm distal ureterolith, as well has mild to moderate right hydro process but no radiodense urolithiasis seen on right side. Kidney function has returned to normal and patient has had adequate urine output. Straight cath on 08/[address] scan with only 100 cc of urine removed and no urine retention after cath. Unfortunately we have no urology services here this week. Discussed briefly with Dr. Koehler on day of discharge and plan will be for patient to follow up with him in the office early to mid next week. Will give patient a short course of tramadol as needed for pain control on discharge, unfortunately need to avoid NSAIDs given new anemia and potential for worsening kidney function. 3. Mild iron deficiency anemia ? Hemoglobin 11.2 on admit, decreased to 10.7 on hospital day 2. No previous baseline available. Iron studies showed iron deficiency anemia. Patient denied any dark stools but has never had a colonoscopy and discussed possible change in bowel movements so CT abdomen pelvis with oral contrast was obtained. No bowel abnormalities but did show kidney stone as noted above. Suspect blood loss is from kidney stone. Treatment plan as above. Hemoglobin stable around 11 on discharge. Can consider iron supplement in the future as needed, did not prescribe on discharge. 4. Mild creatinine elevation, improved ? Creatinine 1.32 on admit, improved to 1.04 on hospital day 2 after IV fluid resuscitation. Adequate urine output. No need to monitor BMP further. Total clinical time spent by myself addressing the patient's medical issues, reviewing all the data, and collaborating with patient's care team: 35 minutes. Physical Exam Const alert, oriented x3, no apparent distress and average body habitus General Appearance: cooperative and comfortable HEENT normocephalic, head/scalp atraumatic, hearing grossly normal bilaterally, nasal mucous membranes and turbinates normal and moist oral mucous membranes Eyes PERRL, EOMs intact bilaterally and conjunctivae normal Neck full ROM Chest inspection of chest normal Resp normal respiratory effort, normal air movement, no use of accessory muscles and clear to auscultation bilaterally Cardio regular rate, regular rhythm, no murmurs and peripheral pulses 2+ throughout GI normal to inspection, nondistended, normoactive bowel sounds, soft to palpation, non-tender and non-distended Back/Spine normal ROM Extremity normal to inspection, full ROM and no pedal edema Skin no rashes or lesions noted Neuro moves all extremities and no focal motor deficits Speech: speech normal Psych mental status grossly normal Weight / BMI Weight Weight: 77.111 kg Body Mass Index (BMI) 23.7 ABG / Lab / Microbiology Data 08/29/23 06:05 08/28/23 06:45 Laboratory: Laboratory Results - last 24 hr 08/29/23 06:05: WBC 6.3, RBC 3.32 L, Hgb 10.8 L, Hct 31.5 L, MCV 94.9 H, MCH 32.5 H, MCHC 34.3, RDW Std Deviation 45.3 H, RDW Coeff of Greg 13.2, Plt Count 136 L, MPV 8.6 Radiography Diagnostic Testing: Radiology Impression Echocardiogram 08/28/23 05:55 Interpretation Summary Normal LV size. Moderate concentric left ventricular hypertrophy. The estimated ejection fraction is 65 %. Mean aortic valve gradient 50 mmHg. Severe focal aortic valve calcification. Ordering Physician: Mely Redman Performed By: Flor Souza RDCS Abdomen CT 08/28/23 13:07 IMPRESSION: Severe left hydronephrosis due to a 12 mm distal ureterolith. [id number] right hydronephrosis but no radiodense ureterolithiasis on the right side. Electronically Signed: Lance Nieves MD at 18:34 EDT Reading Location ID and State: [facility] / [place] Tel , Service support , D/C Instructions Discharge Diet: No restrictions Meaningful Use Info Meaningful Use Meaningful Use Diagnoses (Choose all that apply): None applicable Ischemic Stroke Statin Dosing Therapy Reference: STATIN DOSE THERAPY REFERENCE: * Patients > 75 years receive moderate or high dose statin therapy. * Patients 75 years or YOUNGER should receive HIGH intensity statin dose unless contraindicated. You will be required to document reason for non-treatment if statin daily dose does not meet guidelines. HIGH DOSE STATIN THERAPY DAILY Atorvastatin > than or = to 40 mg Rosuvastatin > than or = to 20 mg Amlodipine + Atorvastatin > than or = to 2.5/40 mg Ezetimibe + Simvastatin 10/80 mg Simvastatin 80mg Discharge Plan Admission Admit Date/Time: 08/27/23 22:08 Primary Reason for Your Visit: chest pain Attending Provider: Valentin Moreland Primary Care Provider: Care Physician,No Primary Consulting Providers: Mely Redman Instructions Additional Instructions / Restrictions: Dr. Koehler's office will call to schedule you for a follow up appointment early to mid next week. Take tramadol up to 3 times daily as needed for pain until that appointment. Discharge Orders/Prescriptions Prescriptions: New tramadol 50 mg tablet 50 mg PO TID PRN (Reason: pain) 5 Days Qty: 15 0RF Referrals / Follow Up: Mitchell Koehler MD [Med Staff - Active Staff] - (Needs appt by Sunday September 03, 2023.) Care Physician,No Primary [Primary Care Provider] - Disposition Disposition (needs filled in before D/C Order can be placed): Home, Self Care Charges/Coding Visit Charges Inpatient E&M: 17086 Disch Hosp >30min
--- NOTE | 2023-08-29 13:02 | CASEMGMT ---
LORENA CISNEROS NOTE: Pt being discharged and would like appt scheduled w/Dr Koehler by next Fri. Dr Koehler's office is closed. Dr Moreland aware and to contact Rodo himself per charge manager. Discharge instructions state that Dr. Koehler's office will call to schedule patient for a follow up appointment early to mid next week. Pt and family member made aware and they were also provided w/Dr Koehler's office #. Pt states was told he would be sent home w/rx and would like to get it from [facility] retail pharmacy. Dr Moreland aware and states will send rx for Tramadol to [facility] retail. RNYasmeen, made aware. Pt denies having other discharge needs/concerns. Call placed to Natalie in [facility] retail pharmacy and made aware pt would like rx delivered to his room. Bharati MARK RN CM
== END 2023-08-29 14:43 | disposition home or self-care (01) ==
LOC: ED 21:24 → PCU 08-28 01:00
PROVIDERS: Admitting Provider Family Medicine; Emergency Provider Student in an Organized Health Care Education/Training Program; Visit Provider Hospitalist
DX: N13.2 Hydronephrosis with renal and ureteral calculous obstruction (principal); N18.30 Chronic kidney disease, stage 3 unspecified; R55 Syncope and collapse; D69.6 Thrombocytopenia, unspecified; D50.9 Iron deficiency anemia, unspecified; I35.0 Nonrheumatic aortic (valve) stenosis; R07.9 Chest pain, unspecified; R06.02 Shortness of breath; R73.9 Hyperglycemia, unspecified
CPT/HCPCS: 36415; 71045; 74176; 78452; 80048; 80053; 80061; 82607; 82728; 82746; 83036; 83540; 83550; 83735; 84484; 85025; 85027; 93005; 93017; 93306; 96360; 96361; 99221; 99285; A9500; J7030; A4216; G0378; J2785

== ENCOUNTER 2023-10-03 05:28 | Day surgery (SDC) | payer SELFPAY, OTHER ==
[2023-10-03 06:29] VITALS: BP 132/52; PULSE 65; RESP 16; TEMP 36.2; O2SAT 95; BMI 26.6
[2023-10-03] MEDS: Lactated Ringers 1,000 ML 15 ML IV (06:45)
[2023-10-03] MEDS: Cefazolin 2 GM in 0.9% Normal Saline (100mL Bag) 100 ML IV (08:00)
--- NOTE | 2023-10-03 08:04 | HP.PCM_ITS ---
HPI - General General Date of Service: 10/03/23 Chief Complaint: Large obstructing left ureteral calculi HPI Narrative SAMEER MCMANUS, is a 78 M who presents To laser stone in distal left ureter placed at left side [facility] Medical History (Updated 09/23/23 @ 09:50 by Yasmeen Marshall) Loss of hearing Wears glasses Ambulates with cane Bladder disease Aortic stenosis Non-smoker History of pain when walking History of echocardiogram History of stress test Cardiology follow-up encounter Heart murmur Blackout Thrombocytopenia Chronic anemia CKD (chronic kidney disease), stage III Home Medications ?Medication ?Instructions ?Recorded ?Last Taken ?Type 739 COLON CLEAR 3 cap PO DAILY 09/23/23 10/02/23 History PROSTATE NIGHT TIME 2 cap PO QHS 09/23/23 10/02/23 History VITAMIN O 0.5 tsp PO BID 09/23/23 10/02/23 History ascorbic acid (vitamin C) 500 mg 1 g PO DAILY 09/23/23 10/02/23 History tablet (C-500) cholecalciferol (vitamin D3) 50 50 mcg PO DAILY 09/23/23 10/02/23 History mcg (2,000 unit) capsule (Vitamin D3) cranberry 500 mg capsule 500 mg PO DAILY 09/23/23 10/02/23 History cyanocobalamin-liver extract tablet 1 tab PO DAILY 09/23/23 10/02/23 History NATTOKINASE 1 tab PO BID 10/03/23 10/03/23 04:30 History ciprofloxacin HCl 500 mg tablet 500 mg PO BID #6 tabs 10/03/23 Unknown Rx (Cipro) curamed 1 tab PO .q4hr prn PRN pain 10/03/23 10/03/23 04:30 History ibuprofen 600 mg tablet 600 mg PO Q6H PRN fever or pain 10/03/23 Unknown Rx #20 tabs phenazopyridine 100 mg tablet 100 mg PO TID #20 tabs 10/03/23 Unknown Rx (Pyridium) tamsulosin 0.4 mg capsule (Flomax) 0.4 mg PO DAILY #10 caps 10/03/23 Unknown Rx Allergy/AdvReac Type Severity Reaction Status Date / Time No Known Allergies Allergy Verified 10/03/23 06:17 Family History Father Heart disease CAD (coronary artery disease) Hypertension Mother No problems noted. Surgical History No history of previous surgery Social History household members: none Smoking Status: Never smoker alcohol intake: never substance use type: does not use Vital Signs Vital Signs Vital Signs: 10/03/23 06:26 10/03/23 06:29 Temperature 97.1 F L Temperature Source Temporal Pulse Rate 65 Respiratory Rate 16 Respiratory Pattern Normal Blood Pressure 132/52 H Blood Pressure Mean 78 Blood Pressure Source Monitor Blood Pressure Position Semi-Fowlers Blood Pressure Location Left Arm Pulse Ox 95 Oxygen Delivery Method Room Air Weight Weight: 79.469 kg Body Mass Index (BMI) 26.6
--- NOTE | 2023-10-03 08:04 | DCINST_ITS ---
Discharge Instructions Diet Discharge Diet: No restrictions Activity Discharge Activity: Return to Normal Activity and May Not Drive (while taking narcotic pain medications.) Dressing / Incision Call your doctor if you observe: Fever of 101 or Higher Follow Up Care Please Follow Up With: Mitchell Koehler MD When: Call [phone] for an appointment Test Results: Test results from this visit will be discussed in further detail at your follow- up appointment, if applicable. Discharge Plan Admission Primary Reason for Your Visit: left ureteral stone Attending Provider: Mitchell Koehler Primary Care Provider: Care PhysicianTerese Primary Instructions Print Language: [place] Discharge Orders/Prescriptions Prescriptions: New ciprofloxacin HCl [Cipro] 500 mg tablet 500 mg PO BID Qty: 6 0RF tamsulosin [Flomax] 0.4 mg capsule 0.4 mg PO DAILY Qty: 10 0RF ibuprofen 600 mg tablet 600 mg PO Q6H PRN (Reason: fever or pain) Qty: 20 0RF phenazopyridine [Pyridium] 100 mg tablet 100 mg PO TID Qty: 20 0RF Continued ascorbic acid (vitamin C) [C-500] 500 mg tablet 1 g PO DAILY cholecalciferol (vitamin D3) [Vitamin D3] 50 mcg (2,000 unit) capsule 50 mcg PO DAILY cyanocobalamin-liver extract Tablet 1 tab PO DAILY PROSTATE NIGHT TIME 2 cap PO QHS cranberry 500 mg capsule 500 mg PO DAILY Rx Instructions: administer with a meal VITAMIN O 0.5 tsp PO BID 739 COLON CLEAR 3 cap PO DAILY NATTOKINASE 1 tab PO BID curamed 1 tab PO .q4hr prn PRN (Reason: pain) Referrals / Follow Up: Mitchell Koehler MD [Med Staff - Active Staff] - Care Physician,No Primary [Primary Care Provider] - Disposition Disposition (needs filled in before D/C Order can be placed): Home, Self Care
--- NOTE | 2023-10-03 10:00 | OP.PCM_ITS ---
Report of Operation Date of Procedure: 10/03/23 Pre-Operative Diagnosis: Very large stones in the distal left ureter multiple l arge Post-Operative Diagnosis: The same Surgery/Procedure Performed:: Cystoscopy, balloon dilation of the left ureter, left ureteroscopy laser lithotripsy of stone fragments, basket extraction of fragments, and stent placement Description of Surgical Findings:: This is a 78-year-old male who has a very large collection of stones in the distal left ureter it looks Hutch diverticulum and a very large pocket of stones in the distal left ureter today when to go in and laser out the stones to place a stent on the left side. Patient is taken back to the operating room at this with induction of anesthesia he was placed in dorsolithotomy position. Penis and testicles were prepped and draped in usual Fashion went to the bladder with a 21 Upper Sorbian rigid cystourethroscope identified the left ureteral orifice advanced the wire through the orifice I then balloon dilated the distal left ureter with a 15 Upper Sorbian balloon dilator after 3 minutes of dilating the ureter I then left the wire in place and next of the wire went in with a semirigid ureteroscope we then used a 365 ?m laser thulium laser he had 3 very large stones in the distal ureter these were very hard stones I set the setting the ureter dusting setting was 0.1 J and 50 Hz and a fragment setting was 10 Hz with 2.0 J spent 55 minutes then lasering the stones completely into small little pieces I then basketed several of the larger fragments out and then we continue to dust the stone after the dusting was completed he had only tiny little fragments left in the ureter that should pass on their own at this point the stones are so small I could not basket anymore I finished dusting off the stones just a little tiny fragments left in the ureter that should pass on their own but a wire back up in the kidney on that side and then put a stent over the wire drain the bladder and patient anesthetic was reversed taken back to PACU good condition plan to see him back in 2 weeks to have the stent removed cystoscopy stent removal in 2 weeks Surgeon: Mitchell Koehler Type of Anesthesia: General Drains: stent left side Estimated Blood Loss (mL): 0 Admit VTE Documentation VTE Present on Admission: No VTE Mechan Device Prophylaxis: SCD's VTE Pharm Prophylaxis ordered?: No
[2023-10-03 10:06] VITALS: BP 123/53; BP 132/52; PULSE 69; RESP 16; TEMP 36.1; O2SAT 95
[2023-10-03 10:10] VITALS: BP 119/58; BP 132/52; PULSE 72; RESP 16; O2SAT 96
[2023-10-03 10:15] VITALS: BP 122/82; BP 132/52; PULSE 77; RESP 16; O2SAT 94
[2023-10-03 10:30] VITALS: BP 107/62; BP 132/52; PULSE 71; RESP 16; TEMP 36.2; O2SAT 96
[2023-10-03 10:42] VITALS: BP 132/52
[2023-10-03] MEDS: Ketorolac 30 MG/ML Syringe 15 MG IV (10:50)
== END 2023-10-03 11:31 | disposition home or self-care (01) ==
LOC: SDC 05:32 → AC 05:32
PROVIDERS: Referring Provider Urology; Visit Provider Urology
PROC: 0TJ98ZZ Inspection of Ureter, Via Natural or Artificial Opening Endoscopic (ICD-10-PCS; CPT 52352; principal; 2023-10-03 07:50)
DX: N20.1 Calculus of ureter (principal); N18.30 Chronic kidney disease, stage 3 unspecified
CPT/HCPCS: 52344; 52356; 00910; J7120; C1726; C1769; J2405

== ENCOUNTER → 2024-02-27 | Outpatient (CLI) | payer OTHER, SELFPAY ==
--- NOTE | 2024-02-27 11:50 | LES_PTH ---
PATIENT: SAMEER MCMANUS LOC: [facility] U#:[id number] AGE/SX: 78/M ROOM: RE02/27/[address]: Dr. Phani Mai MD : 1945 BED: DIS: 02/27/2024 SPEC #: [id number] RECD: 02/27/24 14:02 STATUS: FILIBERTO SARMAD #: [id number] HERB: 02/27/24 11:[address]: Phani Mai DEPT: SURGICAL PATHOLOGY RECD BY: Johny Perez ENTERED: 02/27/24 14:02 SP TYPE: Lesion OTHR DR: No Primary Care Phys Tissues: Skin of face, NOS Procedures: Special Stain Group I Surgery Specimen Level IV GMS Stain (control) HEADER OPERATION: Biopsy of right face PRE-OP DIAGNOSIS: Lesion of face TISSUE SUBMITTED: Right face biopsy MICROSCOPIC DIAGNOSIS Right face lesion, shave biopsy: Inflamed seborrheic keratosis and hyperkeratosis. Negative for malignancy. See comment. SJ/mr 03/01/2024 COMMENT Special stain for fungi is positive for organisms (yeast) in superficial keratin layers; matched control is appropriate. Clinical correlation and appropriate follow up are necessary. MICROSCOPIC DESCRIPTION Slides are reviewed. GROSS DESCRIPTION Received in fixative is one container labeled with the patient's name and designated Right face lesion. The specimen consists of a shave biopsy of long-white skin measuring 0.4 x 0.2 x 0.1cm. The entire specimen is submitted in one cassette. 02/27/2024 TC:1 CPT:17399,88829
== END | disposition home or self-care (01) ==
PROVIDERS: Referring Provider Surgery Plastic and Reconstructive Surgery; Visit Provider Surgery Plastic and Reconstructive Surgery
DX: C44.90 Unspecified malignant neoplasm of skin, unspecified (principal)
CPT/HCPCS: 88305; 88312

== ENCOUNTER → 2025-04-27 | Outpatient (CLI) | payer OTHER, SELFPAY ==
--- NOTE | 2025-04-27 11:53 | RAD_ITS ---
PROCEDURE: CHEST PA AND LATERAL 04/27/2025 REASON FOR EXAM: AORTIC STENOSIS TECHNIQUE: Procedure Code: RADCXR Modality: DX Procedure: CHEST PA AND LATERAL COMPARISON: Chest x-ray dated 08/27/2023 FINDINGS: Hardware: None Heart: Heart size and configuration are within normal limits. Arteriosclerotic vascular disease of the aorta is noted. Mediastinum: Unremarkable. Hilar structures are unremarkable. Trachea is midline. Lungs: Lungs are expanded and clear without evidence of pneumothorax, atelectasis, consolidation, effusion or pneumonic infiltrate.A 7 mm nodular density is projected over the left upper lobe. This is not within a rib based upon its location on the lateral view. This nodule has a stable appearance. Bones: A 1 mm round calcific density is projected over the anterior aspect of the right 2nd rib. This calcific density has a stable appearance. A very subtle dextroscoliosis of the thoracic spine is noted. 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 RAD/Chest PA and Lateral IMPRESSION: The 2 nodular densities projected over the right and left upper lobes has a sta ble appearance. No acute cardiopulmonary process is identified radiographically. Reading Location: [id number]
--- OUTSIDE RECORDS SUMMARY | 2025-04-27 12:14 | XMS RPT_ITS | CCD ---
Author Organization [facility] Care Team Providers Care Medical Recruiter Name Role Phone Care Physician, No Primary Primary Care Provider Unavailable Dr. Arnulfo Sutherland Emergency Provider [phone] Dr. Mely Redman Attending Provider [phone] Dr. Mely Redman Admit Provider Dr. Mely Redman Other Provider Dr. Valentin Moreland Other Provider Dr. Esteban Torres Attending Provider [phone] Valentin Moreland Attending Provider [phone] Care Physician, No Primary Primary Care Unava ilable Esteban Torres Attending Unavailable Mely Redman Admitting Unavailable Mely Redman Consulting Unavailable Valentin Moreland Consulting Unavailable Esteban Torres Attending Unavailable Care Physician, No Primary Referring Unava ilable Care Physician, No Primary Primary Care Unava ilable Care Physician, No Primary Primary Care Unava ilable Phani Mai Attending Unavailable Phani Mai Referring Unavailable Care Physician, No Primary Referring Unava ilable Care Physician, No Primary Primary Care Unava ilable Phani Mai Attending Unavailable Care Physician, No Primary Primary Care Unava ilable Mely Redman Attending Unavailable Mitchell Koehler Referring Unavailable Care Physician, No Primary Primary Care Unava ilable Mitchell Koehler Attending Unavailable Care Physician, No Primary Primary Care Unava ilable Phani Mai Attending Unavailable Phani Mai Referring Unavailable Esteban Torres Attending Unavailable Care Physician, No Primary Primary Care Unava ilable Valentin Moreland Attending Unavailable Care Physician, No Primary Primary Care Unava ilable Mely Redman Admitting Unavailable Mely Redman Consulting Unavailable Valentin Moreland Attending Unavailable Medications Current Medications Medication Drug Class(es) Dates Sig (Normalized) Sig (Original) traMADol hydrochloride 50 mg oral tablet (1 source) Opioid Agonist Start: 08-29-2023 take 50 mg by mouth three times daily Tramadol Active 50 MG PO THREE TIMES A DAY 09 09August 29, 2023 12:00am Problems Active Problems Problem Classification Problem Date Documented Da te Episodic/Chronic Calculus of urinary tract (4 sources) Kidney stone; Translations: [Calculus of kidney] Onset: 08-29-2023 08-28-2023 Episodic Coronary atherosclerosis and other heart disease (5 sources) Preinfarction syndrome; Translations: [Unstable angina] Onset: 09-09-2023 08-27-2023 Chronic Deficiency and other anemia (1 source) Anemia; Translations: [Anemia, unspecified] 08-28-2023 Episodic Other non-epithelial cancer of skin (1 source) Unspecified malignant neoplasm of skin, unspecified; Translations: [Unspecified malignant neoplasm of skin, unspecified] Onset: 03-23-2024 Episodic Past or Other Problems Problem Classification Problem Date Documented Date Episodic/Chronic Deficiency and other anemia (2 sources) Anemia, unspecified; Translations: [Anemia, unspecified] Onset: 08-29-2023 08-29-2023 Episodic Nonspecific chest pain (3 sources) Chest pain; Translations: [Chest pain, unspecified] Onset: 08-29-2023 08-28-2023 Episodic Other diseases of kidney and ureters (3 sources) Hydronephrosis with ureteral stricture, not elsewhere classified; Translations: [Hydronephrosis due to obstruction of ureter] Onset: 08-29-2023 08-28-2023 Episodic Syncope (6 sources) Syncope; Translations: [Syncope and collapse] Onset: 09-09-2023 08-27-2023 Episodic Results Test Name Value Interpretation Reference Range Facility Plastic Surgery Visit Report on 03-05-2024 Plastic Surgery Visit Report [facility] Plastic Reconstructive Surgery [address], [address] [place] [address] OFFICE VISIT Date of Service: 03/05/24 MR#: [id number] Acct: [id number] Name: SAMEER BEVERLY Rep #: [id number] : 1945 Provider: Dr. Phani Mai MD Age/Sex: 78/M Location: [facility] Status: Signed Intake Vital Signs 10/03/23 06:29 03/05/24 15:51 Height 5 ft 8 in 5 ft 8 in BP 142/65 H Blood Pressure Location Rt brachial Position Sitting Respiration 16 Pulse 60 Temp 97.7 F L Temp Source Oral Pulse Oximetry (%) 96 Oxygen Delivery Method room air Intake Visit Reasons: 1 W FU Chief Complaint: skin lesion on face follow up Is patient in pain?: No Allergies No Known Allergies Allergy (Verified 03/05/24 15:52) Medications ???Medication ???Instructions ???Recorded ???Confirmed ???Type 739 COLON CLEAR 3 cap PO DAILY 09/23/23 03/05/24 History PROSTATE NIGHT TIME 2 cap PO QHS 09/23/23 03/05/24 History VITAMIN O 0.5 tsp PO BID 09/23/23 03/05/24 History ascorbic acid (vitamin C) 500 mg 1 g PO DAILY 09/23/23 03/05/24 History tablet (C-500) cholecalciferol (vitamin D3) 50 50 mcg PO DAILY 09/23/23 03/05/24 History mcg (2,000 unit) capsule (Vitamin D3) cranberry 500 mg capsule 500 mg PO DAILY 09/23/23 03/05/24 History cyanocobalamin-liver extract tablet 1 tab PO DAILY 09/23/23 03/05/24 History NATTOKINASE 1 tab PO BID 10/03/23 03/05/24 History curamed 1 tab PO .q4hr prn PRN pain 10/03/23 03/05/24 History ibuprofen 600 mg tablet 600 mg PO Q6H PRN fever or pain 10/03/23 03/05/24 Rx #20 tabs phenazopyridine 100 mg tablet 100 mg PO TID #20 tabs 10/03/23 03/05/24 Rx (Pyridium) tamsulosin 0.4 mg capsule (Flomax) 0.4 mg PO DAILY #10 caps 10/03/23 03/05/24 Rx Have you fallen in the past year?: No Nurse's Note: pt here for follow up on right face shave biopsy, no issues Subjective Details: Doing well no problems Objective Details: Right samaritan/cheek healing well from biopsy. No drainage no signs of infection Coding Level of Care Code Global Post Op Diagnoses Seborrheic keratosis, inflamed L82.0 [facility] Medical History Loss of hearing Wears glasses Ambulates with cane Bladder disease Aortic stenosis Non-smoker History of pain when walking History of echocardiogram History of stress test Cardiology follow-up encounter Heart murmur Blackout Thrombocytopenia Chronic anemia CKD (chronic kidney disease), stage III Surgical History H/O cystoscopy No history of previous surgery Family History Father Heart disease CAD (coronary artery disease) Hypertension Mother No problems noted. Social History household members: none Smoking Status: Never smoker alcohol intake: never substance use type: does not use Assessment and Plan (No Qualifiers) Assessment and Plan (1) Seborrheic keratosis, inflamed: Status: Acute Comment: Right cheek/samaritan Plan: Pathology negative for malignancy in the right cheek/samaritan biopsy Discussed pathology of inflamed seborrheic keratoses. Patient is not wish for any further treatment of this area as it is benign and will put ointment on the region to help with the biopsy site continue to heal. Follow-up as needed 03/05/24 1737 Date Phani Mai MD Cosigner Signature: Date (if applicable) CC: Normal [facility] Plastic Surgery Visit Report on 02-27-2024 Plastic Surgery Visit Report [facility] Plastic Reconstructive Surgery [address], [address] [place] [address] OFFICE VISIT Date of Service: 02/27/24 MR#: [id number] Acct: [id number] Name: SAMEER BEVERLY Rep #: [id number] : 1945 Provider: Dr. Phani Mai MD Age/Sex: 78/M Location: [facility] Status: Signed with Addenda ADDENDUM by Dr. Phani Mai MD on 03/05/24 at 1739 Assessment and Plan (No Qualifiers) Assessment and Plan (1) Pigmented malignant lesion of skin: Status: Deleted Comment: Right samaritan Plan This diagnosis was entered in error There was not a malignant lesion 03/05/241738 Date Phani Mai MD cc: * Signed Intake Vital Signs 3 10/03/23 06:29 02/27/24 11:32 Height 5 ft 8 in BP 130/73 H Blood Pressure Location Lt brachial Position Sitting Respiration 18 Pulse 58 L Pulse Source Monitor Temp 97.7 F L Temp Source Oral Pulse Oximetry (%) 98 Oxygen Delivery Method room air Intake Visit Reasons: SKIN LESION ON FACE Chief Complaint: skin lesion on face Is patient in pain?: No Allergies No Known Allergies Allergy (Verified 02/27/24 11:28) Medications 3 ???Medication ???Instructions ???Recorded ???Confirmed ???Type 739 COLON CLEAR 3 cap PO DAILY 09/23/23 02/27/24 History PROSTATE NIGHT TIME 2 cap PO QHS 09/23/23 02/27/24 History VITAMIN O 0.5 tsp PO BID 09/23/23 02/27/24 History ascorbic acid (vitamin C) 500 mg 1 g PO DAILY 09/23/23 02/27/24 History tablet (C-500) cholecalciferol (vitamin D3) 50 50 mcg PO DAILY 09/23/23 02/27/24 History mcg (2,000 unit) capsule (Vitamin D3) cranberry 500 mg capsule 500 mg PO DAILY 09/23/23 02/27/24 History cyanocobalamin-liver extract tablet 1 tab PO DAILY 09/23/23 02/27/24 History NATTOKINASE 1 tab PO BID 10/03/23 02/27/24 History ciprofloxacin HCl 500 mg tablet 500 mg PO BID #6 tabs 10/03/23 02/27/24 Rx (Cipro) curamed 1 tab PO .q4hr prn PRN pain 10/03/23 02/27/24 History ibuprofen 600 mg tablet 600 mg PO Q6H PRN fever or pain 10/03/23 02/27/24 Rx #20 tabs phenazopyridine 100 mg tablet 100 mg PO TID #20 tabs 10/03/23 02/27/24 Rx (Pyridium) tamsulosin 0.4 mg capsule (Flomax) 0.4 mg PO DAILY #10 caps 10/03/23 02/27/24 Rx Have you fallen in the past year?: Yes Nurse's Note: skin lesion on face PFSH Medical History Loss of hearing Wears glasses Ambulates with cane Bladder disease Aortic stenosis Non-smoker History of pain when walking History of echocardiogram History of stress test Cardiology follow-up encounter Heart murmur Blackout Thrombocytopenia Chronic anemia CKD (chronic kidney disease), stage III Surgical History H/O cystoscopy No history of previous surgery Family History Father Heart disease CAD (coronary artery disease) Hypertension Mother No problems noted. Social History household members: none Smoking Status: Never smoker alcohol intake: never substance use type: does not use HPI SKIN LESION ON FACE Details: Sameer Beverly is a 78-year-old male with past medical history of BPH who presents today for an itchy and painful right temporal lesion that has been there for several years. Reports that the color has been changing. It was bothering him last night he decided to call the hospital today to get an appointment so we got him a clinic appointment. No headaches He is not a smoker. Denies any history of skin cancer (no family history that he knows of either) ROS General General: Yes good health; No fatigue, fever(s) or weight loss HENMT HENMT: No rhinitis, sore throat/mouth sore, nasal congestion, contacts or glaucoma Endo Endocrine: No thyroid disease, polydipsia, heat intolerance, cold intolerance, hepatitis or excessive urine Skin Skin: Yes suspicious lesion; No Bleeding, bruising or changing moles Musc Musculoskeletal: No joint pain, joint stiffness, muscle weakness, back pain, osteoarthritis or Muscle aches/ myalgia Neuro Neurological: No headache(s), No lightheadedness and No numbness Cardio Cardiovascular: No chest pain, pacemaker, fatigue or shortness of breat with exertion Psych Psychiatric: No depression, claustrophobia or anxiety Resp Respiratory: No spitting up, shortness of breath, sleep apnea, asthma, emphysema, TB, Cough or Smoker Gastro Gastrointestinal: No diarrhea, constipation, blood in stool, nausea, vomiting or abdominal bloating Jose Miguel Hematologic: No anemia, No bleeding and No abnormal bleeding Genitourinary: No urinary fr (more content not included)... Normal [facility] Special Stain Group Ion 11-0 Special Stain Group I ---- ---- Patient Age/Sex Location Account Attending Physician ---- SAMEER BEVERLY 78/M LABSPEC [id number] Dr. Phani Mai MD ---- Specimen: [id number] Received: 02/27/24 Status: FILIBERTO Fajardo Num: [id number] Spec Type: Lesion Subm Dr: Dr. Phani Mai MD HEADER OPERATION: Biopsy of right face PRE-OP DIAGNOSIS: Lesion of face TISSUE SUBMITTED: Right face biopsy ---- MICROSCOPIC DIAGNOSIS Right face lesion, shave biopsy: Inflamed seborrheic keratosis and hyperkeratosis. Negative for malignancy. See comment. Darek 03/01/2024 COMMENT Special stain for fungi is positive for organisms (yeast) in superficial keratin layers; matched control is appropriate. Clinical correlation and appropriate follow up are necessary. MICROSCOPIC DESCRIPTION Slides are reviewed. GROSS DESCRIPTION Received in fixative is one container labeled with the patient's name and designated "Right face lesion." The specimen consists of a shave biopsy of long-white skin measuring 0.4 x 0.2 x 0.1cm. The entire specimen is submitted in one cassette. 02/27/2024 TC:1 CPT:86287,58083 ---- Patient Age/Sex Location Account Attending Physician ---- SAMEER BEVERLY/Farida [facility]SPEC [id number] Dr. Phani Mai MD ---- Signed (signature on file) Dr. Andrew Matamoros MD 03/01/24 1431 ---- Normal [facility] Comment on above: Performed By: #### P SSI ####[facility] [id number] [facility] [place], [address] Discharge Instructionon Discharge Instruction [facility] Medical Records Department [address] [place] [address] Instructions for Home/Discharge Instructions 10/03/23 0804 MR#: [id number] Acct: [id number] Name: SAMEER BEVERLY Rep #: [id number] : 1945 78 From: Mitchell Koehler MD PCP: Care Physician,No Primary Status[place] Discharge Instructions Diet Discharge Diet: No restrictions Activity Discharge Activity: Return to Normal Activity and May Not Drive (while taking narcotic pain medications.) Dressing / Incision Call your doctor if you observe: Fever of 101 or Higher Follow Up Care Please Follow Up With: Mitchell Koehler MD When: Call [phone] for an appointment Test Results: Test results from this visit will be discussed in further detail at your follow-up appointment, if applicable. Discharge Plan Admission Primary Reason for Your Visit: left ureteral stone Attending Provider: Mitchell Koehler Primary Care Provider: Care Physician,No Primary Instructions Print Language: Macedonian Discharge Orders/Prescriptions Prescriptions: New ciprofloxacin HCl [Cipro] 500 mg tablet 500 mg PO BID Qty: 6 0RF tamsulosin [Flomax] 0.4 mg capsule 0.4 mg PO DAILY Qty: 10 0RF ibuprofen 600 mg tablet 600 mg PO Q6H PRN (Reason: fever or pain) Qty: 20 0RF phenazopyridine [Pyridium] 100 mg tablet 100 mg PO TID Qty: 20 0RF Continued ascorbic acid (vitamin C) [C-500] 500 mg tablet 1 g PO DAILY cholecalciferol (vitamin D3) [Vitamin D3] 50 mcg (2,000 unit) capsule 50 mcg PO DAILY cyanocobalamin-liver extract Tablet 1 tab PO DAILY PROSTATE NIGHT TIME 2 cap PO QHS cranberry 500 mg capsule 500 mg PO DAILY Rx Instructions: administer with a meal VITAMIN O 0.5 tsp PO BID 739 COLON CLEAR 3 cap PO DAILY NATTOKINASE 1 tab PO BID curamed 1 tab PO .q4hr prn PRN (Reason: pain) Referrals / Follow Up: Mitchell Koehler MD [Med Staff - Active Staff] - Care Physician,No Primary [Primary Care Provider] - Disposition Disposition (needs filled in before D/C Order can be placed): Home, Self Care 10/03/23 0804 Mitchell Koehler MD CC: No Primary Care Physician Signed Normal [facility] Operative Reporton 4 Operative Report [facility] Medical Records Department [address] [place] [address] Operative Report 10/03/23 1000 MR#: [id number] Acct: [id number] Name: SAMEER BEVERLY Rep #: [id number] : 1945 78 From: Mitchell Koehler MD PCP: Care Physician,No Primary Status:[facility] Location: [place] [address] Report of Operation Date of Procedure: 10/03/23 Pre-Operative Diagnosis: Very large stones in the distal left ureter multiple large Post-Operative Diagnosis: The same Surgery/Procedure Performed:: Cystoscopy, balloon dilation of the left ureter, left ureteroscopy laser lithotripsy of stone fragments, basket extraction of fragments, and stent placement Description of Surgical Findings:: This is a 78-year-old male who has a very large collection of stones in the distal left ureter it looks Hutch diverticulum and a very large pocket of stones in the distal left ureter today when to go in and laser out the stones to place a stent on the left side. Patient is taken back to the operating room at this with induction of anesthesia he was placed in dorsolithotomy position. Penis and testicles were prepped and draped in usual Fashion went to the bladder with a 21 Honduran rigid cystourethroscope identified the left ureteral orifice advanced the wire through the orifice I then balloon dilated the distal left ureter with a 15 [place]uran balloon dilator after 3 minutes of dilating the ureter I then left the wire in place and next of the wire went in with a semirigid ureteroscope we then used a 365 ???m laser thulium laser he had 3 very large stones in the distal ureter these were very hard stones I set the setting the ureter dusting setting was 0.1 J and 50 Hz and a fragment setting was 10 Hz with 2.0 J spent 55 minutes then lasering the stones completely into small little pieces I then basketed several of the larger fragments out and then we continue to dust the stone after the dusting was completed he had only tiny little fragments left in the ureter that should pass on their own at this point the stones are so small I could not basket anymore I finished dusting off the stones just a little tiny fragments left in the ureter that should pass on their own but a wire back up in the kidney on that side and then put a stent over the wire drain the bladder and patient anesthetic was reversed taken back to PACU good condition plan to see him back in 2 weeks to have the stent removed cystoscopy stent removal in 2 weeks Surgeon: Mitchell Koehler Type of Anesthesia: General Drains: stent left side Estimated Blood Loss (mL): 0 Admit VTE Documentation VTE Present on Admission: No VTE Mechan Device Prophylaxis: SCD's VTE Pharm Prophylaxis ordered?: No 10/03/23 1003 Cosigner Signature (if applicable): CC: Dr. Mitchell Koehler MD; No Primary Care Physician Signed Normal [facility] Cardiology Visit Reporton Cardiology Visit Report [facility] [address] [place] [address] OFFICE VISIT Date of Service: 09/03/23 MR#: [id number] Acct: [id number] Name: SAMEER BEVERLY Rep #: [id number] : 1945 Provider: Dr. Esteban Torres MD Age/Sex: 78/M Location: [facility] Status: Signed HPI HPI History of Present Illness Details: Pleasant 78-year-old gentleman who presented to the hospital few days ago with an episode of syncope. He says that he was walking when he developed mild chest discomfort and then syncope. He was admitted to the hospital was evaluated and underwent a pharmacologic stress test which demonstrated no evidence of ischemia. An echocardiogram was performed which demonstrated ejection fraction of 65% and severe aortic calcification with a peak gradient of 82 mmHg and a mean gradient of 50 mmHg. Severe aortic stenosis was diagnosed. Cardiology was then consulted. The recommendation was to have him seen as an outpatient. He is denied any previous chest pain paroxysmal nocturnal dyspnea or pedal edema. He says that he has been doing quite well and has remember he is on no medications. His physical exam demonstrates clear lung santacruz regular rate and rhythm a 3/6 harsh systolic murmur noted left sternal border. His electrocardiogram from August 27 demonstrated sinus rhythm with a rate of 72 bpm. 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 Social History household members: none Smoking Status: Never smoker alcohol intake: never substance use type: does not use ROS Const Const: Positive for fatigue; Negative for weakness, headache(s), daytime sleepiness or difficulty sleeping ENT ENT: Positive for dizziness (with exertion); Negative for headache(s) or Nosebleed/epistaxis Cardio Chest Pain: Yes Frequency: other (upon exertion) Character: sharp Onset: exercise (upon exertion) Location: mid sternal Duration: minutes Exacerbation: exercise Relieving: rest Recurrence: exercise Palpitations: No Edema: None Resp Respiratory: Positive for SOB with activity (with CP); Negative for SOB at rest, SOB orthopnea SOB lying down or Cough GI GI: Negative nausea, vomiting or heartburn Neuro Neuro: Positive for dizziness (with exertion); Negative for lightheadedness, near syncope, headache(s) or weakness Endo Endo: Positive for fatigue Cardiology Exam Const Appearance: cooperative, healthy appearing, no acute distress, well developed and well groomed Nutritional Appearance: average body habitus and well nourished Orientation: alert, awake and oriented x3 Head Head: normal to inspection, normocephalic and atraumatic Ears: hearing grossly normal bilaterally and external ears normal Nose: external nose normal, nares normal, nasal mucous membranes and turbinates normal, septum normal and no nasal discharge Face and Sinus: face symmetric Mouth: oral mucosae normal, tongue normal, oropharynx normal and moist mucous membranes Teeth and gingiva: dentition normal Throat: posterior oropharynx normal, tonsils normal and uvula midline Eyes General: appearance normal, both eyes and all related structures Eyelids: eyelids normal Conjunctivae: conjunctivae normal Pupils: PERRL, normal by confrontation and accommodation normal EOM: EOM intact bilaterally Neck Neck: normal visual inspection, trachea midline and no JVD JVD: +5 Carotids: normal carotid upstroke and bounding pulses Chest Chest inspection: normal inspection of the chest, symmetric chest movement and normal respiratory effort Auscultation: Bilateral: Clear to Auscultation Cardio Palpation: normal PMI Rate: regular rate Rhythm: regular rhythm Heart sounds: S1 normal, S2 normal, murmur and normal, physiologic split S2; Negative rub or gallop Murmur: Grade 3/6 GI GI: normal to inspection, soft, no hepatosplenomegaly and bowel sounds present Neuro General: patient alert, patient awake, patient oriented x3, gait no (more content not included)... Normal [facility] Basophil percentageOrdered B y: Valentin Moreland on 08-29-2023 Hemoglobin (Bld) [Mass/Vol] 10.8 g/dL 13.0-16.5 [facility] WBC (Bld) [#/Vol] 6.3 10*3/uL 4.4-11.0 [facility] CBC-Complete Blood Cnt No Di ffon 08-29-2023 Erythrocyte distribution width (RBC) [Ratio] 13.2 % Normal 11.6-14.6 [facility] Comment on above: Performed By: #### L 100.0500 #### [facility] [address] [place], [address] Hematocrit (Bld) [Volume fraction] 31.5 % Low 40-54 [facility] Comment on above: Performed By: #### L 100.0500 #### [facility] [address] [place], [address] Hemoglobin (Bld) [Mass/Vol] 10.8 g/dL Low 13.0-16.5 [facility] Comment on above: Performed By: #### L 100.0500 #### [facility] [address] [place], [address] MCH (RBC) [Entitic mass] 32.5 pg High 27.0-32.0 [facility] Comment on above: Performed By: #### L 100.0500 #### [facility] [address] [place], [address] MCHC (RBC) [Mass/Vol] 34.3 g/dL Normal 32-36 [facility] Comment on above: Performed By: #### L 100.0500 #### [facility] [address] [place], [address] MCV (RBC) [Entitic vol] 94.9 fL High 80-94 [facility] Comment on above: Performed By: #### L 100.0500 #### [facility] [address] [place], [address] Platelet mean volume (Bld) [Entitic vol] 8.6 fL Normal 6.2-12.0 [facility] Comment on above: Performed By: #### L 100.0500 #### [facility] [address] [place], [address] Platelets (Bld) [#/Vol] 136 10*3/uL Low 150-450 [facility] Comment on above: Performed By: #### L 100.0500 #### [facility] [address] [place], [address] RBC (Bld) [#/Vol] 3.32 10*6/uL Low 4.6-6.2 [facility] Comment on above: Performed By: #### L 100.0500 #### [facility] [address] [place], [address] RDW SD 45.3 fl High 35.1-43.9 [facility] Comment on above: Performed By: #### L 100.0500 #### [facility] [address] [place], [address] WBC (Bld) [#/Vol] 6.3 10*3/uL Normal 4.4-11.0 [facility] Comment on above: Performed By: #### L 100.0500 #### [facility] [address] [place], [address] Determination of erythrocyte mean corpuscular volume (MCV)Ordered By: Valentin Moreland on 08-29-2023 MCV (RBC) [Entitic vol] 94.9 fL 80-94 [facility] Discharge Instructionon 050 Discharge Instruction [facility] Medical Records Department [address] [place] [address] Instructions for Home/Discharge Instructions 08/29/23 1134 MR#: [id number] Acct: [id number] Name: SAMEER BEVERLY Rep #: [id number] : 1945 78 From: Valentin Moreland DO PCP: Care Physician,No Primary Status:ADM LOLA Discharge Instructions Diet Discharge Diet: No restrictions Activity Discharge Activity: No Restrictions Follow Up Care Test Results: Test results from this visit will be discussed in further detail at your follow-up appointment, if applicable. Discharge Plan Admission Admit Date/Time: 08/27/23 22:08 Primary Reason for Your Visit: chest pain Attending Provider: Valentin Moreland Primary Care Provider: Care Physician,No Primary Consulting Providers: Mely Redman Additional Instructions / Restrictions: Dr. Koehler's office will call to schedule you for a follow up appointment early to mid next week. Take Tylenol as needed for pain until that appointment. Discharge Orders/Prescriptions Referrals / Follow Up: Mitchell Koehler MD [Med Staff - Active Staff] - (Needs appt by Sunday September 03, 2023.) Care Physician,No Primary [Primary Care Provider] - Disposition Disposition (needs filled in before D/C Order can be placed): Home, Self Care 08/29/23 1137 Valentin Moreland DO CC: Dr. Mely Redman MD; No Primary Care Physician Signed Normal [facility] Erythrocyte distribution wid th ratioOrdered By: Valentin Moreland on 08-29-2023 Erythrocyte distribution width (RBC) [Ratio] 13.2 % 11.6-14.6 [facility] Erythrocyte distribution wid th standard deviationOrdered By: Valentin Moreland on 08-29-2023 Erythrocyte distribution width (RBC) [Entitic vol] 45.3 fL 35.1-43.9 [facility] Hematocrit Auto (Bld) [Volum e fraction]Ordered By: Valentin Moreland on 08-29-2023 Hematocrit (Bld) [Volume fraction] 31.5 % 40-54 [facility] - Hematology and Cell countsOrdered By: Valentin Moreland on 08-29-2023 MCH (RBC) [Entitic mass] 32.5 pg 27.0-32.0 [facility] MCHC (RBC) [Mass/Vol] 34.3 g/dL 32-36 [facility] Platelet mean volume (Bld) [Entitic vol] 8.6 fL 6.2-12.0 [facility] Platelets (Bld) [#/Vol] 136 10*3/uL 150-450 [facility] RBC Auto (Bld) [#/Vol]Ordere d By: Valentin Moreland on 08-29-2023 RBC (Bld) [#/Vol] 3.32 10*6/uL 4.6-6.2 [facility] 12 Lead EKGon 08-28-2023 12 Lead EKG [facility] Cardiovascular Services [address] [place] [address] 12 Lead EKG 08/28/2344 MR#: [id number] Acct: [id number] Name: SAMEER BEVERLY Rep #: [id number] : 1945 78 From: Esteban Torres MD Attending Dr: Dr. Valentin Moreland DO Status : ADM LOLA Ordering Dr: Mely Redman MD Date: 08/28/23 Location: [facility] Sex: M C Admitted: 08/27/23 Test Reason : AM ekg Blood Pressure : / mmHG Vent. Rate : 072 BPM Atrial Rate : 072 BPM P-R Int : 158 ms QRS Dur : 096 ms QT Int : 386 ms P-R-T Axes : 061 020 039 degrees QTc Int : 422 ms Sinus rhythm with Premature supraventricular complexes Otherwise normal ECG Confirmed by ESTEBAN TORRES MD ([id number]), supervising editor trailer DENA FONTAINE ([id number]) on 08/29/2023 9:40:26 AM Referred By: Confirmed By:ESTEBAN TORRES MD 08/29/23 0940 Date Esteban Torres MD CC: Dr. Valentin Moreland DO; Dr. Mely Redman MD; No Primary Care Physician Signed Normal [facility] Abdomen/Pel W ORAL Cont Only on 08-28-2023 Abdomen/Pel W ORAL Cont Only [facility] Imaging Services [address] [place] [address] Abdomen/Pel W ORAL Cont Only MR#: [id number] Acct: [id number] Name: SAMEER BEVERLY Rep #: [id number] : 1945 M 78 From: Lance Parmar PCP: Care Physician,No Primary Status: ADM LOLA Study: Abdomen/Pel W ORAL Cont Only Date of Exam: 06/21 Exam# [id number] Ordering Dr: Valentin Moreland DO [id number] STUDY: CT ABDOMEN AND PELVIS WITHOUT CONTRAST REASON FOR EXAM: Male, 78 years old. new iron def anemia w/ change in BMs RADIATION DOSAGE (If Supplied By Facility): CTDIvol = ( 9.54 ) mGy, DLP = ( 512.57 ) mGycm TECHNIQUE: Transaxial images were obtained from the dome of the diaphragm to the symphysis pubis without oral contrast, and without intravenous contrast. Sagittal and coronal images were reconstructed. Individualized dose optimization techniques were used for this CT. 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 FINDINGS: The visualized lung bases are unremarkable. The visualized portions of the heart are within normal limits. Normal liver. Normal gallbladder and extrahepatic biliary system. Normal spleen. Normal pancreas. Normal bilateral adrenal glands. Multiple right renal cortical cyst measures 5.8 cm. Moderate bilateral hydronephrosis. Severe left hydronephrosis and hydroureter due to a 4 mm distal ureterolith. Oral contrast in the stomach. Oral contrast throughout the small bowel. Oral contrast in the right colon. Appendix not identified. Normal abdominal aorta. Normal inferior vena cava. Normal retroperitoneum. Normal urinary bladder. Bilateral fat-containing inguinal hernias. Normal abdominal wall. Spondylosis. CT/Abdomen/Pel W ORAL Cont Only IMPRESSION: Severe left hydronephrosis due to a 12 mm distal ureterolith. Lrbb-nf-smuixjee right hydronephrosis but no radiodense ureterolithiasis on the right side. Electronically Signed: Lance Nieves MD at 18:34 EDT , CC: Dr. Valentin Moreland, DO; No Primary Care Physician Acid Pump Operator: Signed Normal [facility] Absolute lymphocyte countOrd ered By: Mely Redman on 08-28-2023 Lymphocytes Auto (Unsp spec) [#/Vol] 1.12 10*3/uL 0.83-4.51 [facility] Automated lymphocyte count a s percentage of total leukocytesOrdered By: Mely Feroz on 08-28-2023 Lymphocytes/100 WBC Auto (Unsp spec) 16.3 % 19-41 [facility] Basophil percentageOrdered B y: Mely Feroz on 08-28-2023 Basophils/100 WBC (Bld) 0.6 % 0-1 [facility] Bilirubin [Mass/Vol] 0.50 mg/dL 0.20-1.00 [facility] Comment on above: For patients on eltr ombopag therapy, use of Dimension [place] TBIL is not recommended. Chloride [Moles/Vol] 114 mmol/L 98-107 [facility] Cholesterol [Mass/Vol] 145 mg/dL <200 [facility] Comment on above: <200 mg/dL Desirable 200-240 mg/dL Borderline >240 mg/dL High Risk Eosinophils/100 WBC (Bld) 1.9 % 0-5 [facility] Glucose [Mass/Vol] 90 mg/dL 74-106 [facility] Monocytes/100 WBC (Bld) 6.4 % 0-10 [facility] Neutrophils (Bld) [#/Vol] 5.1 10*3/uL 2.0-7.7 [facility] Neutrophils/100 WBC (Bld) 74.5 % 47-70 [facility] Potassium [Moles/Vol] 3.9 mmol/L 3.5-5.1 [facility] Protein [Mass/Vol] 5.9 g/dL 6.4-8.2 [facility] Sodium [Moles/Vol] 144 mmol/L 136-145 [facility] Triglyceride [Mass/Vol] 60 mg/dL <199 [facility] Comment on above: The drugs N-Acetylcy steine and Metamizole may falsely depress this assay.Serum Triglycerides Reference Interval Normal <150 mg/dL Borderline high 150 - 199 mg/dL High 200 - 499 mg/dL Very High > or = 500 mg/dL CBC W/Diff, Automatedon 05-0 2-2023 Absolute Lymph 1.12 X10 3/uL Normal 0.83-4.51 [facility] Comment on above: Performed By: #### L 506.0250, L100.0100, L503.6550, L500.4050, L500.4100, L503.0105, L501.9985, L503.6030 ####[facility] [address] [place], [address] Absolute Neut 5.1 X10 3/uL Normal 2.0-7.7 [facility] Comment on above: Performed By: #### L 506.0250, L100.0100, L503.6550, L500.4050, L500.4100, L503.0105, L501.9985, L503.6030 ####[facility] [address] [place], [address] Basophils/100 WBC (Bld) 0.6 % Normal 0-1 [facility] Comment on above: Performed By: #### L 506.0250, L100.0100, L503.6550, L500.4050, L500.4100, L503.0105, L501.9985, L503.6030 ####[facility] [address] [place], [address] Eosinophils/100 WBC (Bld) 1.9 % Normal 0-5 [facility] Comment on above: Performed By: #### L 506.0250, L100.0100, L503.6550, L500.4050, L500.4100, L503.0105, L501.9985, L503.6030 ####[facility] [address] [place], [address] Erythrocyte distribution width (RBC) [Ratio] 13.1 % Normal 11.6-14.6 [facility] Comment on above: Performed By: #### L 506.0250, L100.0100, L503.6550, L500.4050, L500.4100, L503.0105, L501.9985, L503.6030 ####[facility] [address] [place], [address] Hematocrit (Bld) [Volume fraction] 30.8 % Low 40-54 [facility] Comment on above: Performed By: #### L 506.0250, L100.0100, L503.6550, L500.4050, L500.4100, L503.0105, L501.9985, L503.6030 ####[facility] [address] [place], [address] Hemoglobin (Bld) [Mass/Vol] 10.7 g/dL Low 13.0-16.5 [facility] Comment on above: Performed By: #### L 506.0250, L100.0100, L503.6550, L500.4050, L500.4100, L503.0105, L501.9985, L503.6030 ####[facility] [address] [place], [address] IG% 0.300 Normal 0.0-0.9 [facility] Comment on above: Result Comment: IG% - Immature Granulocytes (promyelocytes, myelocytes and metamyelocytes) > 1% indicates that a LEFT SHIFT is Present. Performed By: #### L 506.0250, L100.0100, L503.6550, L500.4050, L500.4100, L503.0105, L501.9985, L503.6030 ####[facility] [address] [place], [address] Lymphocytes/100 WBC (Bld) 16.3 % Low 19-41 [facility] Comment on above: Performed By: #### L 506.0250, L100.0100, L503.6550, L500.4050, L500.4100, L503.0105, L501.9985, L503.6030 ####[facility] [address] [place], [address] MCH (RBC) [Entitic mass] 32.7 pg High 27.0-32.0 [facility] Comment on above: Performed By: #### L 506.0250, L100.0100, L503.6550, L500.4050, L500.4100, L503.0105, L501.9985, L503.6030 ####[facility] [address] [place], [address] MCHC (RBC) [Mass/Vol] 34.7 g/dL Normal 32-36 [facility] Comment on above: Performed By: #### L 506.0250, L100.0100, L503.6550, L500.4050, L500.4100, L503.0105, L501.9985, L503.6030 ####[facility] [address] [place], [address] MCV (RBC) [Entitic vol] 94.2 fL High 80-94 [facility] Comment on above: Performed By: #### L 506.0250, L100.0100, L503.6550, L500.4050, L500.4100, L503.0105, L501.9985, L503.6030 ####[facility] [address] [place], [address] Monocytes/100 WBC (Bld) 6.4 % Normal 0-10 [facility] Comment on above: Performed By: #### L 506.0250, L100.0100, L503.6550, L500.4050, L500.4100, L503.0105, L501.9985, L503.6030 ####[facility] [address] [place], [address] Neutrophils/100 WBC (Bld) 74.5 % High 47-70 [facility] Comment on above: Performed By: #### L 506.0250, L100.0100, L503.6550, L500.4050, L500.4100, L503.0105, L501.9985, L503.6030 ####[facility] [address], [address] Nucleated RBC (Bld) [#/Vol] 0 10*3/uL Normal 0-5 [facility] Comment on above: Performed By: #### L 506.0250, L100.0100, L503.6550, L500.4050, L500.4100, L503.0105, L501.9985, L503.6030 ####[facility] [address] [place], [address] Platelet mean volume (Bld) [Entitic vol] 8.9 fL Normal 6.2-12.0 [facility] Comment on above: Performed By: #### L 506.0250, L100.0100, L503.6550, L500.4050, L500.4100, L503.0105, L501.9985, L503.6030 ####[facility] [address] [place], [address] Platelets (Bld) [#/Vol] 119 10*3/uL Low 150-450 [facility] Comment on above: Performed By: #### L 506.0250, L100.0100, L503.6550, L500.4050, L500.4100, L503.0105, L501.9985, L503.6030 ####[facility] [address] [place], [address] RBC (Bld) [#/Vol] 3.27 10*6/uL Low 4.6-6.2 [facility] Comment on above: Performed By: #### L 506.0250, L100.0100, L503.6550, L500.4050, L500.4100, L503.0105, L501.9985, L503.6030 ####[facility] [address] [place], [address] RDW SD 45.1 fl High 35.1-43.9 [facility] Comment on above: Performed By: #### L 506.0250, L100.0100, L503.6550, L500.4050, L500.4100, L503.0105, L501.9985, L503.6030 ####[facility] [address] [place], [address] WBC (Bld) [#/Vol] 6.9 10*3/uL Normal 4.4-11.0 [facility] Comment on above: Performed By: #### L 506.0250, L100.0100, L503.6550, L500.4050, L500.4100, L503.0105, L501.9985, L503.6030 ####[facility] [address] [place], [address] Comprehensive Metabolic Prof [facility] 08-28-2023 Albumin [Mass/Vol] 3.0 g/dL Low 3.2-5.0 [facility] Comment on above: Performed By: #### L 506.0250, L100.0100, L503.6550, L500.4050, L500.4100, L503.0105, L501.9985, L503.6030 ####[facility] [address] [place], [address] Albumin/Globulin [Mass ratio] 1.0 {ratio} Normal 0.9-2.4 [facility] Comment on above: Performed By: #### L 506.0250, L100.0100, L503.6550, L500.4050, L500.4100, L503.0105, L501.9985, L503.6030 ####[facility] [address] [place], [address] ALK P 73 U/L Normal 45-117 [facility] Comment on above: Performed By: #### L 506.0250, L100.0100, L503.6550, L500.4050, L500.4100, L503.0105, L501.9985, L503.6030 ####[facility] [address] [place], [place], [phone](806) ALT [Catalytic activity/Vol] 16 U/L Normal 16-61 [facility] Comment on above: Performed By: #### L 506.0250, L100.0100, L503.6550, L500.4050, L500.4100, L503.0105, L501.9985, L503.6030 ####[facility] [address] [place], [address] AST [Catalytic activity/Vol] 18 U/L Normal 15-37 [facility] Comment on above: Performed By: #### L 506.0250, L100.0100, L503.6550, L500.4050, L500.4100, L503.0105, L501.9985, L503.6030 ####[facility] [address] [place], [address] Bilirubin [Mass/Vol] 0.50 mg/dL Normal 0.20-1.00 [facility] Comment on above: Result Comment: For patients on eltrombopag therapy, use of Dimension [place] TBIL is not recommended. Performed By: #### L 506.0250, L100.0100, L503.6550, L500.4050, L500.4100, L503.0105, L501.9985, L503.6030 ####[facility] [address] [place], [address] BUN/CRE 16.3 RATIO Normal 10-20 [facility] Comment on above: Performed By: #### L 506.0250, L100.0100, L503.6550, L500.4050, L500.4100, L503.0105, L501.9985, L503.6030 ####[facility] [address] [place], [address] CA,Total 8.0 mg/dL Low 8.5-10.1 [facility] Comment on above: Performed By: #### L 506.0250, L100.0100, L503.6550, L500.4050, L500.4100, L503.0105, L501.9985, L503.6030 ####[facility] [address] [place], [address] Chloride [Moles/Vol] 114 mmol/L High 98-107 [facility] Comment on above: Performed By: #### L 506.0250, L100.0100, L503.6550, L500.4050, L500.4100, L503.0105, L501.9985, L503.6030 ####[facility] [address] [place], [address] CO2 [Moles/Vol] 24.0 mmol/L Normal 21.0-32.0 [facility] Comment on above: Performed By: #### L 506.0250, L100.0100, L503.6550, L500.4050, L500.4100, L503.0105, L501.9985, L503.6030 ####[facility] [address] [place], [address] Creatinine [Mass/Vol] 1.04 mg/dL Normal 0.70-1.30 [facility] Comment on above: Result Comment: The validity of the calculated GFR GFRAA in patients over 70 years has not been determined. Clinical correlation is essential. Performed By: #### L 506.0250, L100.0100, L503.6550, L500.4050, L500.4100, L503.0105, L501.9985, L503.6030 ####[facility] [address] [place], [address](065) ECRCL 61.34 ml/min Normal [facility] Comment on above: Performed By: #### L 506.0250, L100.0100, L503.6550, L500.4050, L500.4100, L503.0105, L501.9985, L503.6030 ####[facility] [address] [place], [address] EST GFR - AA 89 mL/min Normal >60 [facility] Comment on above: Result Comment: Afri can Egyptian GFR Calc Performed By: #### L 506.0250, L100.0100, L503.6550, L500.4050, L500.4100, L503.0105, L501.9985, L503.6030 ####[facility] [address] [place], [address] GAP 6 Normal 5-15 [facility] Comment on above: Performed By: #### L 506.0250, L100.0100, L503.6550, L500.4050, L500.4100, L503.0105, L501.9985, L503.6030 ####[facility] [address] [place], [address] GFR/1.73 sq M.predicted among non-blacks MDRD (S/P/Bld) [Vol rate/Area] 73 mL/min/{1.73_m2} Normal >60 [facility] Comment on above: Result Comment: Non- GFR Calc Performed By: #### L 506.0250, L100.0100, L503.6550, L500.4050, L500.4100, L503.0105, L501.9985, L503.6030 ####[facility] [address] [place], [address] Globulin (S) [Mass/Vol] 2.9 g/dL Normal 2.2-4.2 [facility] Comment on above: Performed By: #### L 506.0250, L100.0100, L503.6550, L500.4050, L500.4100, L503.0105, L501.9985, L503.6030 ####[facility] [address] [place], [address] Glucose [Mass/Vol] 90 mg/dL Normal 74-106 [facility] Comment on above: Performed By: #### L 506.0250, L100.0100, L503.6550, L500.4050, L500.4100, L503.0105, L501.9985, L503.6030 ####[facility] [address] [place], [address] Potassium [Moles/Vol] 3.9 mmol/L Normal 3.5-5.1 [facility] Comment on above: Performed By: #### L 506.0250, L100.0100, L503.6550, L500.4050, L500.4100, L503.0105, L501.9985, L503.6030 ####[facility] [address] [place], [address] Sodium [Moles/Vol] 144 mmol/L Normal 136-145 [facility] Comment on above: Performed By: #### L 506.0250, L100.0100, L503.6550, L500.4050, L500.4100, L503.0105, L501.9985, L503.6030 ####[facility] [address] [place], [address] T PROT 5.9 g/dL Low 6.4-8.2 [facility] Comment on above: Performed By: #### L 506.0250, L100.0100, L503.6550, L500.4050, L500.4100, L503.0105, L501.9985, L503.6030 ####[facility] [address] [place], [address] Urea nitrogen [Mass/Vol] 17 mg/dL Normal 7-18 [facility] Comment on above: Performed By: #### L 506.0250, L100.0100, L503.6550, L500.4050, L500.4100, L503.0105, L501.9985, L503.6030 ####[facility] [address] [place], [address] Echo Completeon 08-28-2023 Echo Complete [facility] [address] [place] [address] Echo Complete 08/28/23 1022 MR#: [id number] Acct: [id number] Name: SAMEER BEVERLY Rep #: [id number] : 1945 78 From: Esteban Torres MD Attending Dr: Dr. Valentin Moreland, DO Status : ADM LOLA Ordering Dr: Mely Redman MD Date: 08/28/23 Location: U Sex: M C Admitted: 08/27/23 Reason For Study: SYNCOPE/NEAR SYNCOPE Procedure This was a 2D Doppler, Color Flow transthoracic echocardiogram. Exam performed in department. Left Ventricle Normal LV size. Moderate concentric left ventricular hypertrophy. Left ventricular systolic function is normal. The estimated ejection fraction is 65 %. No regional wall motion abnormalities noted. Right Ventricle Normal RV size. Normal systolic function. Atria Normal left atrium. Normal right atrium. Mitral Valve Normal mitral valve. Tricuspid Valve Normal tricuspid valve. Mild tricuspid valve insufficiency. Pulmonary artery systolic pressure is 23 mmHg. Aortic Valve Severe focal aortic valve calcification. Peak aortic valve gradient 82 mmHg. Mean aortic valve gradient 50 mmHg. Severe aortic stenosis. Mild (1+) aortic valve insufficiency. Pulmonic Valve Normal pulmonic valve. Great Vessels Normal aortic root. The pulmonary artery is normal size. Normal inferior vena cava. Pericardium/Pleural No pericardial effusion. MMode/2D Measurements Calculations LVIDd: 4.2 cm IVSd: 1.5 cm LVOT diam: 2.0 cm LVIDs: 2.9 cm LVPWd: 1.4 cm LVOT area: 3.3 cm2 RVDd: 3.4 cm FS: 31.5 % Ao root diam: 3.2 cm LAV(MOD-bp): 56.1 ml LVAd ap4: 29.9 cm2 LAV(MOD-bp) Indexed: 28.1 ml/m2 LVLd ap4: 7.7 cm LAV(MOD-sp2): 53.8 ml EDV(MOD-sp4): 95.3 ml LAV(MOD-sp4): 55.2 ml EDV(sp4-el): 98.4 ml LVAs ap4: 15.7 cm2 LVLs ap4: 6.5 cm ESV(MOD-sp4): 32.9 ml ESV(sp4-el): 32.3 ml EF(MOD-sp4): 65.5 % EF(sp4-el): 67.2 % SV(MOD-sp4): 62.3 ml SV(sp4-el): 66.1 ml LA A4 area: 19.9 cm2 LA dimension(2D): 4.0 cm RA A4 area: 16.1 cm2 TAPSE: 2.1 cm Time Measurements MV dec time: 0.25 sec Doppler Measurements Calculations MV E max eagle: 91.8 cm/sec Lat Peak E' Eagle: 6.4 cm/sec Med Peak E' Eagle: 5.8 cm/sec MV A max eagle: 95.0 cm/sec E/E' lat: 14.3 E/E' med: 15.9 MV E/A: 0.97 Ao V2 max: 451.4 cm/sec AI max eagle: 369.7 cm/sec LV V1 max: 75.3 cm/sec Ao max P.5 mmHg AI max P.7 mmHg LV V1 max P.3 mmHg Ao V2 mean: 337.1 cm/sec LV V1 mean P.3 mmHg Ao mean P.3 mmHg AI dec slope: 200.9 cm/sec2 LV V1 mean: 53.1 cm/sec Ao V2 VTI: 125.2 cm AI P1/2t: 539.0 msec LV V1 VTI: 21.3 cm AV (velocity ratio): 0.17 DAWOOD(I,D): 0.55 cm2 DAWOOD(V,D): 0.55 cm2 SV(LVOT): 69.4 ml PA V2 max: 134.0 cm/sec TR max eagle: 222.8 cm/sec TR max P.9 mmHg ECHO/Echo Complete Interpretation Summary Normal LV size. Moderate concentric left ventricular hypertrophy. The estimated ejection fraction is 65 %. Mean aortic valve gradient 50 mmHg. Severe focal aortic valve calcification. Ordering Physician: Mely Redman Performed By: Flor Souza RDCS 08/28/232103 Date Esteban Torres MD CC: Dr. Valentin Moreland DO; Dr. Mely Redman MD; No Primary Care Physician Date Dictated: 08/28/23 1022 Date Transcribed: 08/28/232103 Acid Pump Operator: Signed Normal [facility] Ferritinon 08-28-2023 Ferritin [Mass/Vol] 90 ng/mL Normal 26-388 [facility] Comment on above: Performed By: #### L 506.0250, L100.0100, L503.6550, L500.4050, L500.4100, L503.0105, L501.9985, L503.6030 ####[facility] [address] [place], [address] Folates, (Folic Acid)on FOLATES 36.20 ng/mL Normal 3.1-55.4 [facility] Comment on above: Performed By: #### L 506.0250, L100.0100, L503.6550, L500.4050, L500.4100, L503.0105, L501.9985, L503.6030 ####[facility] [address] [place], [place], [phone] Hemoglobin A1con 08-28-2023 HbA1c (Bld) [Mass fraction] 4.9 % Normal 3.8-5.6 [facility] Comment on above: Result Comment: Norm al < 5.7 % Prediabetic 5.7 - 6.4 % Diabetic >or= 6.5 % Please note range changes. Performed By: #### L 506.0250, L100.0100, L503.6550, L500.4050, L500.4100, L503.0105, L501.9985, L503.6030 #### [facility] Laboratory [address] [place], [place], [phone] Immature granulocytes/100 WB C Auto (Bld)Ordered By: Mely Redman on 08-28-2023 Immature granulocytes/100 WBC (Bld) 0.300 % 0.0-0.9 [facility] Comment on above: IG% - Immature Granu locytes (promyelocytes, myelocytes and metamyelocytes) > 1% indicates that a LEFT SHIFT is Present. Iron measurement (mass/mass) Ordered By: Mely Redman on 08-28-2023 Iron (Unsp spec) [Mass/Mass] 62 ug/dL 65-175 [facility] Iron+Iron Binding Capacityon 08-28-2023 Iron [Mass/Vol] 62 ug/dL Low 65-175 [facility] Comment on above: Performed By: #### L 506.0250, L100.0100, L503.6550, L500.4050, L500.4100, L503.0105, L501.9985, L503.6030 ####[facility] [address] [place], [place], [phone] IRON SATURATION 30.0 Normal 15.0-55.0 [facility] Comment on above: Performed By: #### L 506.0250, L100.0100, L503.6550, L500.4050, L500.4100, L503.0105, L501.9985, L503.6030 ####[facility] [address] [place], [address] TIBC 207 ug/dL Low 250-450 [facility] Comment on above: Performed By: #### L 506.0250, L100.0100, L503.6550, L500.4050, L500.4100, L503.0105, L501.9985, L503.6030 ####[facility] [address] [place], [address] L501.4020on 08-28-2023 TROPONIN-I HS 48 pg/mL Normal 3.0-78.0 [facility] Comment on above: Order Comment: 'TROP ' Serial specimen #1, #2 or #3: 3 Result Comment: Plea se Note: New Test Units and Gender Specific Reference Ranges. For more information see Policy Stat Procedure [place] High Sensitivity Troponin (TNIH) and attachments. Performed By: #### L 501.4020 #### [facility] [address] [place], [address] Laboratory - Chemistry and C hemistry - challengeOrdered By: Mely Redman on 08-28-2023 Albumin/Globulin [Mass ratio] 1.0 {ratio} 0.9-2.4 [facility] ALP [Catalytic activity/Vol] 73 U/L 45-117 [facility] ALT [Catalytic activity/Vol] 16 U/L 16-61 [facility] Cholesterol in HDL [Mass/Vol] 33 mg/dL >40 [facility] Comment on above: The drugs N-Acetylcy steine and Metamizole may falsely depress this assay. Reference Range HDL <40 mg/dL Low HDL Cholesterol HDL >or= 60 mg/dL High HDL Cholesterol Cholesterol in LDL [Mass/Vol] 100 mg/dL 0-130 [facility] CO2 [Moles/Vol] 24.0 mmol/L 21.0-32.0 [facility] Cobalamin (Vitamin B12) [Mass/Vol] 987 pg/mL 211-911 [facility] Ferritin [Mass/Vol] 90 ng/mL 26-388 [facility] Globulin (S) [Mass/Vol] 2.9 g/dL 2.2-4.2 [facility] Urea nitrogen/Creatinine [Mass ratio] 16.3 mg/mg 10-20 [facility] Laboratory - Hematology and Cell countsOrdered By: Mely Redman on 08-28-2023 Nucleated RBC/100 WBC (Bld) [Ratio] 0 % 0-5 [facility] Lipid Profileon 08-28-2023 Cholesterol [Mass/Vol] 145 mg/dL Normal 200 [facility] Comment on above: Result Comment: <200 mg/dL Desirable 200-240 mg/dL Borderline >240 mg/dL High Risk Performed By: #### L 506.0250, L100.0100, L503.6550, L500.4050, L500.4100, L503.0105, L501.9985, L503.6030 ####[facility] [address] [place], [address] Cholesterol in HDL [Mass/Vol] 33 mg/dL Low [facility] Comment on above: Result Comment: The drugs N-Acetylcysteine and Metamizole may falsely depress this assay. Reference Range HDL <40 mg/dL Low HDL Cholesterol HDL >or= 60 mg/dL High HDL Cholesterol Performed By: #### L 506.0250, L100.0100, L503.6550, L500.4050, L500.4100, L503.0105, L501.9985, L503.6030 ####[facility] [address] [place], [address] Cholesterol in LDL [Mass/Vol] 100 mg/dL Normal 0-130 [facility] Comment on above: Performed By: #### L 506.0250, L100.0100, L503.6550, L500.4050, L500.4100, L503.0105, L501.9985, L503.6030 ####[facility] [address] [place], [place], [address] Cholesterol in VLDL [Mass/Vol] 12 mg/dL Normal 5-40 [facility] Comment on above: Performed By: #### L 506.0250, L100.0100, L503.6550, L500.4050, L500.4100, L503.0105, L501.9985, L503.6030 ####[facility] [address] [place], [address] Triglyceride [Mass/Vol] 60 mg/dL Normal [facility] Comment on above: Result Comment: The drugs N-Acetylcysteine and Metamizole may falsely depress this assay. Serum Triglycerides Reference Interval Normal <150 mg/dL Borderline high 150 - 199 mg/dL High 200 - 499 mg/dL Very High > or = 500 mg/dL Performed By: #### L 506.0250, L100.0100, L503.6550, L500.4050, L500.4100, L503.0105, L501.9985, L503.6030 ####[facility] [address] [place], [place], [phone] No Panel InformationOrdered By: Mely Redman on 08-28-2023 Estimated Creatinine Clearance Calc 61.34 ml/min [facility] Estimated GFR (MDRD) Amer 89 mL/min >60 [facility] Comment on above: GFR Calc Estimated GFR (MDRD) Non-Af Amer 73 mL/min >60 [facility] Comment on above: Non- GFR Calc Folate 36.20 ng/mL 3.1-55.4 [facility] Total Iron Binding Capacity 207 ug/dL 250-450 [facility] VLDL Cholesterol 12 mg/dL 5-40 [facility] Troponin I High Sensitivity 48 pg/mL 3.0-78.0 [facility] Comment on above: Please Note: New Timothy t Units and Gender Specific Reference Ranges. For more information see Policy Stat Procedure [place] High Sensitivity Troponin (TNIH) and attachments. Serum or plasma calcium kaia urement (mass/volume)Ordered By: Mely Redman on 08-28-2023 Calcium [Mass/Vol] 8.0 mg/dL 8.5-10.1 [facility] Serum or plasma creatinine m easurement (mass/volume)Ordered By: Mely Redman on 08-28-2023 Creatinine [Mass/Vol] 1.04 mg/dL 0.70-1.30 [facility] Comment on above: The validity of the calculated GFR & GFRAA in patients over 70 years has not been determined. Clinical correlation is essential. Serum or plasma iron saturat ion measurement (mass fraction)Ordered By: Mely Redman on 08-28-2023 Iron saturation [Mass fraction] 30.0 % 15.0-55.0 [facility] Serum or plasma urea nitroge n measurement (mass/volume)Ordered By: Mely Redman on 08-28-2023 Urea nitrogen [Mass/Vol] 17 mg/dL 7-18 [facility] Stress Reporton 08-28-2023 Stress Report [facility] Cardi[facility] Services [address] [place] [address] MR#: [id number] Acct: [id number] Name: SAMEER BEVERLY Rep #: [id number] : 1945 78 From: Esteban Torres MD Primary Care: Care Physician,No Primary Status: ADM LOLA Referring Dr: Sex: M C Stress Test Report Pharmacologic myocardial perfusion stress test. 78-year-old man with a history of chest pain Resting EKG demonstrates sinus rhythm with a rate of 67 bpm. Resting blood pressure is 152/78 mmHg. 0.4 mg of regadenoson was infused per usual protocol followed by rapid intravenous saline flush injection. Continuous EKG monitoring was performed. The maximum heart rate was 83 bpm which was 58% of max impacted heart rate the maximum workload was 1 metabolic equivalent. At rest there were no ST or T wave changes noted to suggest ischemia and at peak infusion nonspecific ST changes were noted which did not meet the criteria for ischemia. No clinical angina is noted. The final blood pressure was 124/70 mmHg. Myocardial perfusion protocol. 12 point mCi of technetium 99m sestamibi was injected at rest. 0.4 mg of regadenoson was infused per usual protocol. At peak infusion 34.4 mCi of technetium 99m sestamibi was injected stress im ages were obtained stress and rest images were reconstructed and compared in the short axis vertical long and horizontal long axis. Gated images were also obtained. Perfusion SPECT analysis: Review of the stress images demonstrate normal uptake of tracer noted in all areas of the myocardium. The resting images similar demonstrated normal uptake of tracer noted in all areas of the myocardium. No areas of reversibility are noted to suggest ischemia and no previous infarct is noted. Gated SPECT analysis: The gated ejection fraction is 57%. Conclusion: Normal pharmacologic myocardial perfusion stress test. Preserved ejection fraction. 08/28/23 1212 Date Esteban Torres MD CC: Dr. Valentin Moreland, ; Dr. Mely Redman MD; Dr. Arnulfo Sutherland, ; No Primary Care Physician Date Dictated: 08/28/231210 Date Transcribed: 08/28/231210 Acid Pump Operator: CO Signed Normal [facility] Thin prep Papanicolaou smear with manual screeningOrdered By: Mely Redman on 08-28-2023 Thin prep Papanicolaou smear with manual screening 3.0 g/dL 3.2-5.0 [facility] Thin prep Papanicolaou smear with manual screening 18 U/L 15-37 [facility] Thin prep Papanicolaou smear with manual screening 6 5-15 [facility] Vitamin B12on 08-28-2023 Cobalamin (Vitamin B12) [Mass/Vol] 987 pg/mL High 211-911 [facility] Comment on above: Performed By: #### L 506.0250, L100.0100, L503.6550, L500.4050, L500.4100, L503.0105, L501.9985, L503.6030 ####[facility] [address] [place], [address] Whole blood hemoglobin A1c/t otal hemoglobin ratio (mass fraction)Ordered By: Mely Redman on 08-28-2023 HbA1c (Bld) [Mass fraction] 4.9 % 3.8-5.6 [facility] Comment on above: Normal < 5.7 % Predi abetic 5.7 - 6.4 % Diabetic >or= 6.5 % Please note range changes. 12 Lead EKGon 08-27-2023 12 Lead EKG [facility] Cardiovascular Services [address] [place] [address] 12 Lead EKG 08/27/235 MR#: [id number] Acct: [id number] Name: SAMEER BEVERLY Rep #: [id number] : 1945 78 From: Esteban Torres MD Attending Dr: Dr. Valentin Moreland, DO Status : ADM LOLA Ordering Dr: Mely Redman MD Date: 08/27/23 Location: [facility] Sex: M C Admitted: 08/27/23 Test Reason : admission ekg Blood Pressure : / mmHG Vent. Rate : 067 BPM Atrial Rate : 067 BPM P-R Int : 160 ms QRS Dur : 094 ms QT Int : 390 ms P-R-T Axes : 057 016 039 degrees QTc Int : 412 ms Normal sinus rhythm Normal ECG When compared with ECG of 27-AUG-2023 19:29, MANUAL COMPARISON REQUIRED, DATA IS UNCONFIRMED Confirmed by VIRAJ COATES, ESTEBAN ([id number]), supervising editor trailer DENA FONTAINE ([id number]) on 08/29/2023 9:41:13 AM Referred By: Confirmed By:ESTEBAN TORRES MD 08/29/23 0941 Date Esteban Torres MD CC: Dr. Valentin Moreland, DO; Dr. Mely Redman MD; No Primary Care Physician Signed Normal [facility] 12 Lead EKG [facility] Cardiovascular Services [address] [place] [address] 12 Lead EKG 08/27/231928 MR#: [id number] Acct: [id number] Name: SAMEER BEVERLY Rep #: [id number] : 1945 78 From: Esteban Torres MD Attending Dr: Dr. Valentin Moreland, DO Status : ADM LOLA Ordering Dr: Arnulfo Sutherland DO Date: 08/27/23 Location: [facility] Sex: M C Admitted: 08/27/23 Test Reason : SYNCOPE Blood Pressure : / mmHG Vent. Rate : 080 BPM Atrial Rate : 080 BPM P-R Int : 162 ms QRS Dur : 094 ms QT Int : 378 ms P-R-T Axes : 060 016 037 degrees QTc Int : 435 ms Sinus rhythm with occasional Premature ventricular complexes Nonspecific ST abnormality Abnormal ECG Confirmed by ESTEBAN TORRES MD ([id number]), supervising editor trailer ALAINA MCKEON ([id number]) on 08/28/2023 11:41:12 AM Referred By: Confirmed By:ESTEBAN TORRES MD 08/28/23 1141 Date Esteban Torres MD CC: Dr. Valentin Moreland, ; Dr. Arnulfo Sutherland DO; No Primary Care Physician Signed Normal [facility] Absolute lymphocyte countOrd ered By: ED PROVIDER on 08-27-2023 Lymphocytes Auto (Unsp spec) [#/Vol] 1.68 10*3/uL 0.83-4.51 [facility] Automated lymphocyte count a s percentage of total leukocytesOrdered By: ED PROVIDER on 08-27-2023 Lymphocytes/100 WBC Auto (Unsp spec) 26.3 % 19-41 [facility] Basic Metabolic Profile (BMP )on 08-27-2023 BUN/CRE 17.4 RATIO Normal 10-20 [facility] Comment on above: Order Comment: 'TROP ' Serial specimen #1, #2 or #3: 1 Performed By: #### L 501.4020, L100.0100, L500.2500 ####[facility] [address] [place], [place], [id number] CA,Total 8.6 mg/dL Normal 8.5-10.1 [facility] Comment on above: Order Comment: 'TROP ' Serial specimen #1, #2 or #3: 1 Performed By: #### L 501.4020, L100.0100, L500.2500 ####[facility] [address] [place], [address] Chloride [Moles/Vol] 113 mmol/L High 98-107 [facility] Comment on above: Order Comment: 'TROP ' Serial specimen #1, #2 or #3: 1 Performed By: #### L 501.4020, L100.0100, L500.2500 ####[facility] [address] [place], [address] CO2 [Moles/Vol] 26.0 mmol/L Normal 21.0-32.0 [facility] Comment on above: Order Comment: 'TROP ' Serial specimen #1, #2 or #3: 1 Performed By: #### L 501.4020, L100.0100, L500.2500 ####[facility] [address] [place], [address] Creatinine [Mass/Vol] 1.32 mg/dL High 0.70-1.30 [facility] Comment on above: Order Comment: 'TROP ' Serial specimen #1, #2 or #3: 1 Result Comment: The validity of the calculated GFR GFRAA in patients over 70 years has not been determined. Clinical correlation is essential. Performed By: #### L 501.4020, L100.0100, L500.2500 ####[facility] [address] [place], [address] ECRCL 43.90 ml/min Normal [facility] Comment on above: Order Comment: 'TROP ' Serial specimen #1, #2 or #3: 1 Performed By: #### L 501.4020, L100.0100, L500.2500 ####[facility] [address] [place], [address] EST GFR - AA 67 mL/min Normal >60 [facility] Comment on above: Order Comment: 'TROP ' Serial specimen #1, #2 or #3: 1 Result Comment: Afri can Egyptian GFR Calc Performed By: #### L 501.4020, L100.0100, L500.2500 ####[facility] [address] [place], [address] GAP 4 Low 5-15 [facility] Comment on above: Order Comment: 'TROP ' Serial specimen #1, #2 or #3: 1 Performed By: #### L 501.4020, L100.0100, L500.2500 ####[facility] [address] [place], [address] GFR/1.73 sq M.predicted among non-blacks MDRD (S/P/Bld) [Vol rate/Area] 56 mL/min/{1.73_m2} Low >60 [facility] Comment on above: Order Comment: 'TROP ' Serial specimen #1, #2 or #3: 1 Result Comment: Non- GFR Calc Performed By: #### L 501.4020, L100.0100, L500.2500 ####[facility] [address] [place], [address] Glucose [Mass/Vol] 124 mg/dL High 74-106 [facility] Comment on above: Order Comment: 'TROP ' Serial specimen #1, #2 or #3: 1 Result Comment: Fast ing Glucose result from 100 to 125 mg/dL suggests IMPAIRED HOMEOSTASIS per A.D.A. criteria. Performed By: #### L 501.4020, L100.0100, L500.2500 ####[facility] [address] [place], [address] Potassium [Moles/Vol] 3.9 mmol/L Normal 3.5-5.1 [facility] Comment on above: Order Comment: 'TROP ' Serial specimen #1, #2 or #3: 1 Performed By: #### L 501.4020, L100.0100, L500.2500 ####[facility] [address] [place], [address] Sodium [Moles/Vol] 143 mmol/L Normal 136-145 [facility] Comment on above: Order Comment: 'TROP ' Serial specimen #1, #2 or #3: 1 Performed By: #### L 501.4020, L100.0100, L500.2500 ####[facility] [address] [place], [address] Urea nitrogen [Mass/Vol] 23 mg/dL High 7-18 [facility] Comment on above: Order Comment: 'TROP ' Serial specimen #1, #2 or #3: 1 Performed By: #### L 501.4020, L100.0100, L500.2500 ####[facility] [address] [place], [address] Basophil percentageOrdered B y: ED PROVIDER on 08-27-2023 Basophils/100 WBC (Bld) 0.6 % 0-1 [facility] Chloride [Moles/Vol] 113 mmol/L 98-107 [facility] Eosinophils/100 WBC (Bld) 2.7 % 0-5 [facility] Glucose [Mass/Vol] 124 mg/dL 74-106 [facility] Comment on above: Fasting Glucose resu lt from 100 to 125 mg/dL suggests IMPAIRED HOMEOSTASIS per A.D.A. criteria. Hemoglobin (Bld) [Mass/Vol] 11.2 g/dL 13.0-16.5 [facility] Monocytes/100 WBC (Bld) 7.2 % 0-10 [facility] Neutrophils (Bld) [#/Vol] 4.0 10*3/uL 2.0-7.7 [facility] Neutrophils/100 WBC (Bld) 62.9 % 47-70 [facility] Potassium [Moles/Vol] 3.9 mmol/L 3.5-5.1 [facility] Sodium [Moles/Vol] 143 mmol/L 136-145 [facility] WBC (Bld) [#/Vol] 6.4 10*3/uL 4.4-11.0 [facility] CBC W/Diff, Automatedon 05-0 Absolute Lymph 1.68 X10 3/uL Normal 0.83-4.51 [facility] Comment on above: Performed By: #### L 501.4020, L100.0100, L500.2500 ####[facility] [address] [place], [address] Absolute Neut 4.0 X10 3/uL Normal 2.0-7.7 [facility] Comment on above: Performed By: #### L 501.4020, L100.0100, L500.2500 ####[facility] [address] [place], [address] Basophils/100 WBC (Bld) 0.6 % Normal 0-1 [facility] Comment on above: Performed By: #### L 501.4020, L100.0100, L500.2500 ####[facility] [address] [place], [address] Eosinophils/100 WBC (Bld) 2.7 % Normal 0-5 [facility] Comment on above: Performed By: #### L 501.4020, L100.0100, L500.2500 ####[facility] [address] [place], [address] Erythrocyte distribution width (RBC) [Ratio] 13.0 % Normal 11.6-14.6 [facility] Comment on above: Performed By: #### L 501.4020, L100.0100, L500.2500 ####[facility] [address] [place], [address] Hematocrit (Bld) [Volume fraction] 32.4 % Low 40-54 [facility] Comment on above: Performed By: #### L 501.4020, L100.0100, L500.2500 ####[facility] [address] [place], [address] Hemoglobin (Bld) [Mass/Vol] 11.2 g/dL Low 13.0-16.5 [facility] Comment on above: Performed By: #### L 501.4020, L100.0100, L500.2500 ####[facility] [address] [place], [address] IG% 0.300 Normal 0.0-0.9 [facility] Comment on above: Result Comment: IG% - Immature Granulocytes (promyelocytes, myelocytes and metamyelocytes) > 1% indicates that a LEFT SHIFT is Present. Performed By: #### L 501.4020, L100.0100, L500.2500 ####[facility] [address] [place], [address] Lymphocytes/100 WBC (Bld) 26.3 % Normal 19-41 [facility] Comment on above: Performed By: #### L 501.4020, L100.0100, L500.2500 ####[facility] [address] [place], [address] MCH (RBC) [Entitic mass] 32.9 pg High 27.0-32.0 [facility] Comment on above: Performed By: #### L 501.4020, L100.0100, L500.2500 ####[facility] [address] [place], [address] MCHC (RBC) [Mass/Vol] 34.6 g/dL Normal 32-36 [facility] Comment on above: Performed By: #### L 501.4020, L100.0100, L500.2500 ####[facility] [address] [place], [address] MCV (RBC) [Entitic vol] 95.3 fL High 80-94 [facility] Comment on above: Performed By: #### L 501.4020, L100.0100, L500.2500 ####[facility] [address] [place], [address] Monocytes/100 WBC (Bld) 7.2 % Normal 0-10 [facility] Comment on above: Performed By: #### L 501.4020, L100.0100, L500.2500 ####[facility] [address] [place], [address] Neutrophils/100 WBC (Bld) 62.9 % Normal 47-70 [facility] Comment on above: Performed By: #### L 501.4020, L100.0100, L500.2500 ####[facility] [address] [place], [address] Nucleated RBC (Bld) [#/Vol] 0 10*3/uL Normal 0-5 [facility] Comment on above: Performed By: #### L 501.4020, L100.0100, L500.2500 ####[facility] [address] [place], [address] Platelet mean volume (Bld) [Entitic vol] 9.2 fL Normal 6.2-12.0 [facility] Comment on above: Performed By: #### L 501.4020, L100.0100, L500.2500 ####[facility] [address] [place], [address] Platelets (Bld) [#/Vol] 137 10*3/uL Low 150-450 [facility] Comment on above: Performed By: #### L 501.4020, L100.0100, L500.2500 ####[facility] [address] [place], [address] RBC (Bld) [#/Vol] 3.40 10*6/uL Low 4.6-6.2 [facility] Comment on above: Performed By: #### L 501.4020, L100.0100, L500.2500 ####[facility] [address] [place], [address] RDW SD 44.8 fl High 35.1-43.9 [facility] Comment on above: Performed By: #### L 501.4020, L100.0100, L500.2500 ####[facility] [address] [place], [address] WBC (Bld) [#/Vol] 6.4 10*3/uL Normal 4.4-11.0 [facility] Comment on above: Performed By: #### L 501.4020, L100.0100, L500.2500 ####[facility] [address] [place], [address] Chest 1 View (Portable)on Chest 1 View (Portable) [facility] Imaging Services [address] [facility] [place] [address] Chest 1 View (Portable) MR#: [id number] Acct: [id number] Name: SAMEER BEVERLY Rep #: [id number] : 1945 M 78 From: Erwin de la cruz MD PCP: Care Physician,No Primary Status: REG ER Study: Chest 1 View (Portable) Date of Exam: 08/27/23 Exam# [id number] Ordering Dr: Arnulfo Sutherland DO [id number] INDICATION: chest pain EXAMINATION/TECHNIQUE: X-RAY - XR Chest 1 View COMPARISON: None. FINDINGS: The lungs are clear. Tortuous and calcified thoracic aorta. The heart is mildly enlarged. No pleural effusion or pneumothorax. Degenerative changes of the thoracic spine and shoulders. RAD/Chest 1 View (Portable) IMPRESSION: No acute radiographic abnormalities. Electronically Signed: Erwin Edwards MD at 21:25 EDT , CC: Dr. Arnulfo Sutherland DO; No Primary Care Physician Acid Pump Operator: Signed Normal [facility] Determination of erythrocyte mean corpuscular volume (MCV)Ordered By: ED PROVIDER on 08-27-2023 MCV (RBC) [Entitic vol] 95.3 fL 80-94 [facility] Emergency Department Summary on 08-27-2023 Emergency Department Summary [facility] Medical Records Department [address] [place] [address] Emergency Department Summary 08/27/23 MR#: [id number] Acct: [id number] Name: SAMEER BEVERLY Rep #: [id number] : 1945 78 From: Arnulfo Sutherland DO PCP: Care Physician,No Primary Status:ADM LOLA Location: [address] History of Present Illness Chief Complaint: Syncope Narrative Narrative: 78-year-old male presenting after an episode of syncope. He is unable to narrow down the timeframe completely but states that recently he has been noting that when he does work around the house he has been getting chest pain so bad that he has to stop and rest he describes it as sharp and aching in the central portion of his chest and a half to rest until he gets better. He states he has a family history of cardiac disease from his father. He states he has not seen a doctor in 10 or 20 years. He takes vitamins at home. He states today he did a lot of work around his house and was going to walk next-door and while he was walking up the driveway was having very severe chest pain and became short of breath to the point that he fainted and he was near the road and somebody found him about 5 minutes later. He states he woke up and was still having chest pain and then was transported by EMS and estimates he might of had another 5 to 10 minutes of chest pain prior to arriving at [facility]. [facility] Medical History Chronic anemia CKD (chronic kidney disease), stage III Thrombocytopenia Medical History no medical history Home Medications NK 08/27/23 [History Last Taken Unknown] Allergy/AdvReac Type Severity Reaction Status Date / Time No Known Allergies Allergy Verified 08/27/23 19:21 Family History (Updated 08/27/23 @ 22:[address] Mely Redman MD) Father Heart disease CAD (coronary artery disease) Hypertension Mother No problems noted. Surgical History (Updated 08/27/23 @ 22:[address] Mely Redman MD) No history of previous surgery Surgical History no surgical history Social History (Updated 08/27/23 @ 22:[address] Mely Redman MD) household members: none Smoking Status: Never smoker alcohol intake: never substance use type: does not use ROS ROS ED Constitutional Constitutional ED: Denies chills, fever(s) or sweats Eyes Eyes: Denies blurry vision or change in vision ENT ENT ED: Denies ear pain or sore throat Cardiovascular Cardiovascular: Reports chest pain; Denies palpitations or racing heartbeat Respiratory/Chest Respiratory/Chest: Denies cough, dyspnea or sputum Gastrointestinal Gastrointestinal: Denies abdominal pain, constipation, diarrhea, nausea or vomiting Genitourinary Genitourinary ED: Denies dysuria, hematuria or urinary frequency Musculoskeletal Musculoskeletal: Denies arthralgias, myalgias or neck pain Integumentary Denies abscess, Abrasions or rash Neurologic Neurologic: Denies headache(s), paresthesias or weakness Psychiatric Psychiatric: Denies anxiety, depression, suicidal ideation or suicidal thoughts Endocrine Endocrinology: Denies polydipsia or polyuria EXAM Physical Exam Const Vital Signs: 08/27/23 19:21 08/27/23 19:21 08/27/23 19:38 Temperature 98.6 F Temperature Source Temporal Pulse Rate 81 Pulse Rate [Sitting (for 1 minute prior to obtaining)] Pulse Rate [Standing (for 1 minute prior to obtaining)] Respiratory Rate 17 Respiratory Effort Normal Non-Labored Respiratory Pattern Normal Blood Pressure 94/77 Blood Pressure [Lying] Blood Pressure [Sitting (for 1 minute prior to obtaining)] Blood Pressure [Standing (for 1 minute prior to obtaining)] Blood Pressure Mean 82 Blood Pressure Mean [Lying] Blood Pressure Mean [Sitting (for 1 minute prior to obtaining)] Blood Pressure Mean [Standing (for 1 minute prior to obtaining)] Pulse Ox 99 Oxygen Delivery Method Room Air Nasal Cannula 08/27/23 20:21 08/27/23 21:01 08/27/23 21:00 Temperature Temperature Source Pulse Rate 79 87 Pulse Rate [Sitting (for 1 minute prior to obtaining)] 85 Pulse Rate [Standing (for 1 minute prior to obtaining)] 87 Respiratory Rate 16 18 Respiratory Effort Respiratory Pattern Blood Pressure 127/67 H 128/64 H Blood Pressure [Lying] 132/65 H Blood Pressure [Sitting (for 1 minute prior to obtaining)] 134/71 H Blood Pressure [Standing (for 1 minute prior to obtaining)] 128/64 H Blood Pressure Mean 87 85 Blood Pressure Mean [Lying] 87 Blood Pressure Mean [Sitting (for 1 minute prior to obtaining)] 92 Blood Pressure Mean [Standing (for 1 minute prior to obtaining)] 85 Pulse Ox 98 100 Oxygen Delivery Method Room Air Room Air 08/27/23 22:00 Tempera (more content not included)... Normal [facility] Erythrocyte distribution wid th ratioOrdered By: ED PROVIDER on 08-27-2023 Erythrocyte distribution width (RBC) [Ratio] 13.0 % 11.6-14.6 [facility] Erythrocyte distribution wid th standard deviationOrdered By: ED PROVIDER on 08-27-2023 Erythrocyte distribution width (RBC) [Entitic vol] 44.8 fL 35.1-43.9 [facility] H AND P Exam - Hospitaliston 08-27-2023 H&P Exam - Hospitalist [facility] Medical Records Department [address] [place] [address] H P Exam - Hospitalist 08/27/235 MR#: [id number] Acct: [id number] Name: SAMEER BEVERLY Rep #: [id number] : 1945 78 From: Mely Redman MD PCP: Care Physician,No Primary Status:REG ER Location: ED HPI - General General Date of Admission: 08/27/23 Date of Service: 08/27/23 Chief Complaint: Chest pain, dyspnea, syncopal event. HPI Narrative The patient is a 78 y/o M w/ PMHx: Suspected CKD stage III unclear subtype, Chronic anemia who presents to the [facility] ED on 08/27/23 with history of episodes of exertional chest discomfort which started recently over the last 2 months, improving when he rests, described as sharp and aching in the midsternal chest with no specific radiation with associated mild dyspnea with recurrent episode on day of presentation while he was walking up the driveway with similar chest discomfort however dyspnea was more pronounced and he became lightheaded and dizzy and passed out supposedly found approximately 5 minutes following with ongoing chest discomfort upon his awakening with EMS evaluation with administration of sublingual nitroglycerin with resolution of chest pain following this after 5 to 10 minutes with transition then to the ED for further evaluation. He notes with this recent events of chest discomfort his pain was rated 10 out of 10 in severity at its worst with dyspnea and some diaphoresis but no nausea or emesis. Currently in the ED he notes he is chest pain-free. Workup in the ED included T98.6, heart rate 81, BP 94/77, respiratory rate 17, 99% on room air, heart rate orthostatics not marked appearing, BP orthostatics not marked appearing either, most recent repeat blood pressure 132/65, CBC with WBC 6.4, hemoglobin 11.2, MCV 95.3, platelet 137 without marked shift, BMP with chloride 113, BUN/creatinine 23/1.32, GFR 56, glucose 124, troponin 12 with repeat delta 43, chest x-ray with no acute cardiopulmonary findings, EKG sinus rhythm with nonspecific ST-T changes with no acute evidence of ischemia. In the ED discussed patient with ED physician requested full-strength aspirin therapy be administered. [facility] Medical History Chronic anemia CKD (chronic kidney disease), stage III Thrombocytopenia Medical History no medical history Home Medications NK 08/27/23 [History Last Taken Unknown] Allergy/AdvReac Type Severity Reaction Status Date / Time No Known Allergies Allergy Verified 08/27/23 19:21 Family History (Updated 08/27/23 @ 22:[address] Mely Redman MD) Father Heart disease CAD (coronary artery disease) Hypertension Mother No problems noted. Surgical History (Updated 08/27/23 @ 22:[address] Mely Redman MD) No history of previous surgery Surgical History no surgical history Social History (Updated 08/27/23 @ 22:[address] Mely Redman MD) household members: none Smoking Status: Never smoker alcohol intake: never substance use type: does not use ROS ROS Narrative Admission Review of Systems: CONSTITUTIONAL: No weight loss, fever, chills, + weakness or fatigue. HEENT: Eyes: No visual loss, blurred vision, double vision or yellow sclerae. Ears, Nose, Throat: No hearing loss, sneezing, congestion, runny nose or sore throat. SKIN: No rash or itching, lesions, wounds. CARDIOVASCULAR: + Chest pain, syncopal event. No palpitations, edema, orthopnea. RESPIRATORY: + Exertional dyspnea with chest discomfort. No cough or sputum, wheezing, hemoptysis. GASTROINTESTINAL: No anorexia, nausea, vomiting or diarrhea, abdominal pain, melena, BRBPR. GENITOURINARY: No dysuria, frequency, urgency or retention. NEUROLOGICAL: No headache, dizziness, syncope, paralysis, ataxia, numbness or tingling in the extremities, focal weakness, change in bowel or bladder control, seizure. MUSCULOSKELETAL: + muscle, back pain, joint pain or stiffness. HEMATOLOGIC: + Possibly chronic anemia, no reported easy bleeding/bruising history. LYMPHATICS: No enlarged nodes. No history of splenectomy. PSYCHIATRIC: No history of depression or anxiety. ENDOCRINOLOGIC: + reports of sweating. No cold or heat intolerance. No polyuria or polydipsia. ALLERGIES: No history of asthma, hives, eczema or rhinitis. Vital Signs Vital Signs Vital Signs: 08/27/23 19:21 08/27/23 19:21 08/27/23 19:38 Temperature 98.6 F Temperature Source Temporal Pulse Rate 81 Pulse Rate [Sitting (for 1 minute prior to obtaining)] Pulse Rate [Standing (for 1 minute prior to obtaining)] Respiratory Rate 17 Respiratory Effort Normal Non-Labored Respiratory Pattern Normal Blood Pressure 94/77 Blood Pressure [Lying] Blood Pressure [Sitting (for 1 minute prior to obtaining)] Blood Pressure [Sta (more content not included)... Normal [facility] Hematocrit Auto (Bld) [Volum e fraction]Ordered By: ED PROVIDER on 08-27-2023 Hematocrit (Bld) [Volume fraction] 32.4 % 40-54 [facility] Immature granulocytes/100 WB C Auto (Bld)Ordered By: ED PROVIDER on 08-27-2023 Immature granulocytes/100 WBC (Bld) 0.300 % 0.0-0.9 [facility] Comment on above: IG% - Immature Granu locytes (promyelocytes, myelocytes and metamyelocytes) > 1% indicates that a LEFT SHIFT is Present. L501.4020on 08-27-2023 TROPONIN-I HS 43 pg/mL Normal 3.0-78.0 [facility] Comment on above: Order Comment: 'TROP ' Serial specimen #1, #2 or #3: 2 Result Comment: Lucy floyd Note: New Test Units and Gender Specific Reference Ranges. For more information see Policy Stat Procedure [place] High Sensitivity Troponin (TNIH) and attachments. Performed By: #### L 501.4020 #### [facility] Laboratory [address] [place], [address] TROPONIN-I HS 12 pg/mL Normal 3.0-78.0 [facility] Comment on above: Order Comment: 'TROP ' Serial specimen #1, #2 or #3: 1 Result Comment: Lucy floyd Note: New Test Units and Gender Specific Reference Ranges. For more information see Policy Stat Procedure [place] High Sensitivity Troponin (TNIH) and attachments. Performed By: #### L 501.4020, L100.0100, L500.2500 ####[facility] [address] [place], [place], [address] Laboratory - Chemistry and C hemistry - challengeOrdered By: Mely Redman on 08-27-2023 Magnesium [Mass/Vol] 2.0 mg/dL 1.6-2.6 [facility] Laboratory - Chemistry and C hemistry - challengeOrdered By: ED PROVIDER on 08-27-2023 CO2 [Moles/Vol] 26.0 mmol/L 21.0-32.0 [facility] Urea nitrogen/Creatinine [Mass ratio] 17.4 mg/mg 10-20 [facility] Laboratory - Hematology and Cell countsOrdered By: ED PROVIDER on 08-27-2023 MCH (RBC) [Entitic mass] 32.9 pg 27.0-32.0 [facility] MCHC (RBC) [Mass/Vol] 34.6 g/dL 32-36 [facility] Nucleated RBC/100 WBC (Bld) [Ratio] 0 % 0-5 [facility] Platelet mean volume (Bld) [Entitic vol] 9.2 fL 6.2-12.0 [facility] Platelets (Bld) [#/Vol] 137 10*3/uL 150-450 [facility] Magnesiumon 08-27-2023 Magnesium [Mass/Vol] 2.0 mg/dL Normal 1.6-2.6 [facility] Comment on above: Order Comment: Comme nts: may add to ED labs Performed By: #### L 501.5200 #### [facility] [address] [place], [address] No Panel InformationOrdered By: Arnulfo Sutherland on 08-27-2023 Troponin I High Sensitivity 43 pg/mL 3.0-78.0 [facility] Comment on above: Please Note: New Timothy t Units and Gender Specific Reference Ranges. For more information see Policy Stat Procedure [place] High Sensitivity Troponin (TNIH) and attachments. No Panel InformationOrdered By: ED PROVIDER on 08-27-2023 Estimated Creatinine Clearance Calc 43.90 ml/min [facility] Estimated GFR (MDRD) Amer 67 mL/min >60 [facility] Comment on above: GFR Calc Estimated GFR (MDRD) Non-Af Amer 56 mL/min >60 [facility] Comment on above: Non- GFR Calc RBC Auto (Bld) [#/Vol]Ordere d By: ED PROVIDER on 08-27-2023 RBC (Bld) [#/Vol] 3.40 10*6/uL 4.6-6.2 [facility] Serum or plasma calcium kaia urement (mass/volume)Ordered By: ED PROVIDER on 08-27-2023 Calcium [Mass/Vol] 8.6 mg/dL 8.5-10.1 [facility] Serum or plasma creatinine m easurement (mass/volume)Ordered By: ED PROVIDER on 08-27-2023 Creatinine [Mass/Vol] 1.32 mg/dL 0.70-1.30 [facility] Comment on above: The validity of the calculated GFR & GFRAA in patients over 70 years has not been determined. Clinical correlation is essential. Serum or plasma urea nitroge n measurement (mass/volume)Ordered By: ED PROVIDER on 08-27-2023 Urea nitrogen [Mass/Vol] 23 mg/dL 7-18 [facility] Thin prep Papanicolaou smear with manual screeningOrdered By: ED PROVIDER on 08-27-2023 Thin prep Papanicolaou smear with manual screening 4 5-15 [facility] Vital Signs Date Time Vital Sign Value Performing Clinician Faci lity 08-29-2023 09:48-0400 Body temperature 98.2 [degF] No Primary Care Physician [facility] 08-29-2023 09:48-0400 Diastolic blood pressure 56 mm[Hg] No Primary Care Physician [facility] 08-29-2023 09:48-0400 Heart rate 71 /min No Primary Care Physician [facility] 08-29-2023 09:48-0400 Respiratory rate 14 /min No Primary Care Physician [facility] 08-29-2023 09:48-0400 SaO2% (BldA) [Mass fraction] 98 % No Primary Care Physician [facility] 08-29-2023 09:48-0400 Systolic blood pressure 107 mm[Hg] No Primary Care Physician [facility] 08-29-2023 06:00-0400 Body mass index (BMI) [Ratio] 23.7 kg/m2 No Primary Care Physician [facility] 08-29-2023 06:00-0400 Body weight 77.11 kg No Primary Care Physician [facility] 08-27-2023 23:21-0400 Body height 180.34 cm No Primary Care Physician [facility] 08-27-2023 22:00-0400 Body temperature 97.6 [degF] No Primary Care Physician [facility] 08-27-2023 22:00-0400 Diastolic blood pressure 70 mm[Hg] No Primary Care Physician [facility] 08-27-2023 22:00-0400 Heart rate 72 /min No Primary Care Physician [facility] 08-27-2023 22:00-0400 Respiratory rate 13 /min No Primary Care Physician [facility] 08-27-2023 22:00-0400 SaO2% (BldA) [Mass fraction] 98 % No Primary Care Physician [facility] 08-27-2023 22:00-0400 Systolic blood pressure 167 mm[Hg] No Primary Care Physician [facility] 08-27-2023 19:21-0400 Body height 172.72 cm No Primary Care Physician [facility] 08-27-2023 19:21-0400 Body mass index (BMI) [Ratio] 27.4 kg/m2 No Primary Care Physician [facility] 08-27-2023 19:21-0400 Body weight 81.8 kg No Primary Care Physician [facility] Encounters Encounter Date Encounter Type Care Provider Facility Start: 03-05-2024 End: 03-05-2024 ambulatory No Primary Care Physician Facility:[facility] Start: 02-27-2024 End: 02-27-2024 ambulatory No Primary Care Physician Facility:[facility] Start: 02-27-2024 End: 02-27-2024 ambulatory No Primary Care Physician Facility:[facility] Start: 10-03-2023 End: 10-03-2023 ambulatory Rogejung Koehler Facility:[facility] Start: 09-30-[address] [facility] Facility:[facility] Start: 09-03-2023 End: 09-03-[address] [facility] Facility:[facility] Start: 08-29-2023 Non-patient / Non-visit No Twila Bell Physician [facility] Work Phone: Start: 08-28-2023 Non-patient / Non-visit No Twila Bell Physician [facility] Work Phone: Start: 08-28-2023 Non-patient / Non-visit No Twila Bell Physician [id number] Start: 08-27-2023 End: 08-29-2023 Evaluation and management of inpatient No Primary Care Physician [facility] Work Phone: Start: 08-27-2023 End: 08-29-2023 observation encounter No Primary Care Physician [facility] Work Phone: Start: 08-27-2023 End: 08-29-2023 ambulatory Valentin Moreland Facility:[facility] Start: 08-27-2023 Non-patient / Non-visit No Twila Bell Physician [facility] Work Phone: Procedures Date Procedure Procedure Detail Performing Clinician Start: 08-28-2023 CT of abdomen and pe lvis with oral contrast No Primary Care Physician Start: 08-28-2023 Cardiovascular stres s test using pharmacologic stress agent No Primary Care Physician Start: 08-27-2023 Plain chest X-ray No Pr imary Care Physician Plan of Treatment Date Care Activity Detail Author Start: 08-29-2023 Patient discharge [facility] Start: 08-28-2023 Following clinical pathway protocol [facility] Start: 08-28-2023 Introduction of urinary catheter [facility] Start: 08-28-2023 [facility] Start: 08-27-2023 Following clinical pathway protocol [facility] Start: 08-27-2023 Assessment of risk o f venous thromboembolism [facility] Start: 08-27-2023 Inhalation therapy procedure [facility] Start: 08-27-2023 Insertion of cathete r into peripheral vein [facility] Start: 08-27-2023 Introduction of urinary catheter [facility] Start: 08-27-2023 Measuring intake and output [facility] Start: 08-27-2023 Oxygen therapy [facility] Start: 08-27-2023 Providing care according to standard [facility] Start: 08-27-2023 Provision of activity privileges [facility] Start: 08-27-2023 Referral to service [facility] Start: 08-27-2023 [facility] Start: 08-27-2023 Verification routine [facility] Start: 08-27-2023 Hospital admission, emergency, from emergency room, medical nature [facility] Start: 08-27-2023 Electrocardiographic procedure [facility] Start: 08-27-2023 Admission procedure [facility] Start: 08-27-2023 [facility] Magnesium [Mass/volu me] in Serum or Plasma [facility] Patient referral [facility] Work Phone: Payers Date Payer Category Payer Self-pay 2023 Unknown [id number] Unknown [id number] 2.16.8 [id number] Unknown [id number] 2.16.8 [id number] Unknown [id number] 2.16.8 [id number] Unknown [id number] 2.16.8 [id number] Unknown [id number] 2.16.8 [id number] Unknown [id number] 2.16.8 [id number] Unknown [id number] 2.16.8 [id number] Unknown [id number] 2.16.8 [id number] Unknown [id number] 2.16.8 [id number] Unknown [id number] 2.16.8 [id number] Unknown [id number] 2.16.8 [id number] Social History Date Type Detail Facility Start: 08-27-2023 End: 08-27-2023 Tobacco smoking status NHIS Unknown if ever smoked [facility] Start: 1945 Sex Assigned At Male W [facility] Goals Date Patient Goal Desired Activity /State Functional Status Date Assessment Result Facility 08-29-2023 Functional status Activity Ability Indepe ndent [facility] Work Phone: 08-29-2023 Functional status Patient Activity Ambula timothy [facility] Work Phone: Mental Status Date Assessment Result Facility 08-29-2023 Cognitive function Voice/Name [facility] Work Phone: 08-27-2023 Cognitive function Level Of Cons ciousness Awake;Alert;Appropriate;Follow s Commands [facility] Work Phone: Clinical Notes 08-27-2023 to 10-03-2023 Note Date & Type Note Facility 10-03-2023 Note [facility] Medical Records Department [address] [place] [address] History Physical Exam 10/03/23 0804 MR#: [id number] Acct: [id number] Name: SAMEER BEVERLY Rep #: [id number] : 1945 78 From: Mitchell Koehler MD PCP: Care Physician,No Primary Status:[facility] Location: [address] - General General Date of Service: 10/03/23 Chief Complaint: Large obstructing left ureteral calculi HPI Narrative SAMEER BEVERLY, is a 78 M who presents To laser stone in distal left ureter placed at left side [facility] Medical History (Updated 09/23/23 @ 09:50 by Yasmeen Marshall) Loss of hearing Wears glasses Ambulates with cane Bladder disease Aortic stenosis Non-smoker History of pain when walking History of echocardiogram History of stress test Cardiology follow-up encounter Heart murmur Blackout Thrombocytopenia Chronic anemia CKD (chronic kidney disease), stage III Home Medications ???Medication ???Instructions ???Recorded ???Last Taken ???Type 739 COLON CLEAR 3 cap PO DAILY 09/23/23 10/02/23 History PROSTATE NIGHT TIME 2 cap PO QHS 09/23/23 10/02/23 History VITAMIN O 0.5 tsp PO BID 09/23/23 10/02/23 History ascorbic acid (vitamin C) 500 mg 1 g PO DAILY 09/23/23 10/02/23 History tablet (C-500) cholecalciferol (vitamin D3) 50 50 mcg PO DAILY 09/23/23 10/02/23 History mcg (2,000 unit) capsule (Vitamin D3) cranberry 500 mg capsule 500 mg PO DAILY 09/23/23 10/02/23 History cyanocobalamin-liver extract tablet 1 tab PO DAILY 09/23/23 10/02/23 History NATTOKINASE 1 tab PO BID 10/03/23 10/03/23 04:30 History ciprofloxacin HCl 500 mg tablet 500 mg PO BID #6 tabs 10/03/23 Unknown Rx (Cipro) curamed 1 tab PO .q4hr prn PRN pain 10/03/23 10/03/23 04:30 History ibuprofen 600 mg tablet 600 mg PO Q6H PRN fever or pain 10/03/23 Unknown Rx #20 tabs phenazopyridine 100 mg tablet 100 mg PO TID #20 tabs 10/03/23 Unknown Rx (Pyridium) tamsulosin 0.4 mg capsule (Flomax) 0.4 mg PO DAILY #10 caps 10/03/23 Unknown Rx Allergy/AdvReac Type Severity Reaction Status Date / Time No Known Allergies Allergy Verified 10/03/23 06:17 Family History Father Heart disease CAD (coronary artery disease) Hypertension Mother No problems noted. Surgical History No history of previous surgery Social History household members: none Smoking Status: Never smoker alcohol intake: never substance use type: does not use Vital Signs Vital Signs Vital Signs: 10/03/23 06:26 10/03/23 06:29 Temperature 97.1 F L Temperature Source Temporal Pulse Rate 65 Respiratory Rate 16 Respiratory Pattern Normal Blood Pressure 132/52 H Blood Pressure Mean 78 Blood Pressure Source Monitor Blood Pressure Position Semi-Fowlers Blood Pressure Location Left Arm Pulse Ox 95 Oxygen Delivery Method Room Air Weight Weight: 79.469 kg Body Mass Index (BMI) 26.6 10/03/23 0804 Cosigner Signature (if applicable): CC: Dr. Mitchell Koehler MD; No Primary Care Physician Signed [facility] 08-29-2023 Discharge summary Note Date/Time August 29, 2023 11:35a m [facility] Medical Records Department [address] [place] [address] Instructions for Home/Discharge Instructions 08/29/23 1134 MR#: [id number] Acct: [id number] Name: SAMEER BEVERLY Rep #:[id number] : 1945 78 From: Valentin gil DO PCP: Care Physician,No Primary Status :ADM LOLA Discharge Instructions Diet Discharge Diet: No restrictions Activity Discharge Activity: No Restrictions Follow Up Care Test Results: Test results from this visit will be discussed in further detail at your follow-up appointment, if applicable. Discharge Plan Admission Admit Date/Time: 08/27/23 22:08 Primary Reason for Your Visit: chest pain Attending Provider: Valentin Moreland Primary Care Provider: Care Physician,No Primary Consulting Providers: Mely Redman Instructions Additional Instructions / Restrictions: Dr. Koehler's office will call to schedule you for a follow up appointment early to mid next week. Take Tylenol as needed for pain until that appointment. Discharge Orders/Prescriptions Referrals / Follow Up: Mitchell Koehler MD [Med Staff - Active Staff] - (Needs appt by Sunday September 03, 2023.) Care Physician,No Primary [Primary Care Provider] - Disposition Disposition (needs filled in before D/C Order can be placed): Home, Self Care 08/29/23 1137<Electronically signed by Valentin Moreland DO>Valentin Moerland DO CC: Dr. Mely Redman MD; No Primary Care Physician ~ Signed [facility] Work Phone: 1(796) 807-615905-03-2024 Discharge summary Author Valentin Moreland [facility] August 29, 2023 2:41pm Note Date/Time August 29, 2023 11:37a m [facility] Medical Records Department [address] [place] [address] Discharge Summary 08/29/23 1137 MR#: [id number] Acct: [id number] Name: SAMEER BEVERLY Rep #:[id number] : 1945 78 From: Valentin gil DO PCP: Care Physician,No Primary Status :ADM LOLA Location: [place] [address] Providers Date of Admission: 08/27/23 Date of Discharge: 08/29/23 Primary Care Physician: No Primary Care Phys Reason For Visit: CHEST PAIN Diagnosis Discharge Diagnosis (1) Chest pain: Status: Acute Code(s): R07.9 - Chest pain, unspecified (2) Kidney stone on left side: Status: Acute Code(s): N20.0 - Calculus of kidney (3) Hydronephrosis due to obstruction of ureter: Status: Acute Code(s): N13.1 - Hydronephrosis with ureteral stricture, not elsewhere classified (4) Anemia: Status: Acute Code(s): D64.9 - Anemia, unspecified Medications at Discharge Home Medications tramadol 50 mg tablet 50 mg PO TID PRN pain 5 days #15 tabs 08/29/23 Hospital Course Operations None Procedures Stress test, Transthoracic echo and - (Chest x-ray, CT abdomen with oral contrast) Summary of Care Provided Minutes Spent on Discharge: 35 Hospital Course: Patient is a 78-year-old male who presented [facility] ED on 08/27/2023 with exertional chest pain. Hospital course as noted below. Discharged home with no therapy needs in stable condition on 08/28. 1. Chest pain with exertion; severe aortic stenosis ? Troponin trend on admit 12 > 43 > 48. EKG with normal sinus rhythm, no ST changes. Chest x-ray nonacute. Stress test on 08/27 with normal EF, no ischemic changes. Echo 08/27 showed EF 65%, moderate concentric LV hypertrophy, severe aortic stenosis. There is concern the patient has symptomatic aortic stenosis. Discussed with cardiology, suyapa for close outpatient follow-up, has appointment scheduled for next FridaySeptember 02. 2. Left-sided kidney stone with hydronephrosis ? CT abdomen pelvis with oral contrast on 08/27 showed severe left hydronephrosis due to a 12 mm distal ureterolith, as well has mild to moderate right hydro process but no radiodense urolithiasis seen on right side. Kidney function has returned to normal and patient has had adequate urine output. Straight cath on 08/[address] scan with only 100 cc of urine removed and no urine retention aftercath. Unfortunately we have no urology services here this week. Discussed briefly with Dr. Koehler on day of discharge and plan will be for patient to follow up with him in the office early to mid next week. Will give patient a short course of tramadol as needed for pain control on discharge, unfortunately need to avoid NSAIDs given new anemia and potential for worsening kidney function. 3. Mild iron deficiency anemia ? Hemoglobin 11.2 on admit, decreased to 10.7 on hospital day 2. No previous baseline available. Iron studies showed iron deficiency anemia. Patient deniedany dark stools but has never had a colonoscopy and discussed possible change inbowel movements so CT abdomen pelvis with oral contrast was obtained. No bowel abnormalities but did show kidney stone as noted above. Suspect blood loss is from kidney stone. Treatment plan as above. Hemoglobin stable around 11 on discharge. Can consider iron supplement in the future as needed, did not prescribe on discharge. 4. Mild creatinine elevation, improved ? Creatinine 1.32 on admit, improved to 1.04 on hospital day 2 after IV fluid resuscitation. Adequate urine output. No need to monitor BMP further. Total clinical time spent by myself addressing the patient's medical issues, reviewing all the data, and collaborating with patient's care team: 35 minutes. Physical Exam Const alert, oriented x3, no apparent distress and average body habitus General Appearance: cooperative and comfortable HEENT normocephalic, head/scalp atraumatic, hearing grossly normal bilaterally, nasal mucous membranes and turbinates normal and moist oral mucous membranes Eyes PERRL, EOMs intact bilaterally and conjunctivae normal Neck full ROM Chest inspection of chest normal Resp normal respiratory effort, normal air movement, no use of accessory muscles and clear to auscultation bilaterally Cardio regular rate, regular rhythm, no murmurs and peripheral pulses 2+ throughout GI normal to inspection, nondistended, normoactive bowel sounds, soft to palpation,non-tender and non-distended Back/Spine normal ROM Extremity normal to inspection, full ROM and no pedal edema Skin no rashes or lesions noted Neuro moves all extremities and no focal motor deficits Speech: speech normal Psych mental status grossly normal Weight / BMI Weight Weight: 77.111 kg Body Mass Index (BMI) 23.7 ABG / Lab / Microbiology Data 08/29/23 06:05 08/28/23 06:45 Laboratory: Laboratory Results - last 24 hr 08/29/23 06:05: WBC 6.3, RBC 3.32 L, Hgb 10.8 L, Hct 31.5 L, MCV 94.9 H, MCH 32.5 H, MCHC 34.3, RDW Std Deviation 45.3 H, RDW Coeff of Greg 13.2, Plt Count 136 L, MPV 8.6 Radiography Diagnostic Testing: Radiology Impression Echocardiogram 08/28/23 05:55 Interpretation Summary Normal LV size. Moderate concentric left ventricular hypertrophy. The estimated ejection fraction is 65 %. Mean aortic valve gradient 50 mmHg. Severe focal aortic valve calcification. Ordering Physician: Mely Redman Performed By: Flor Souza RDCS Abdomen CT 08/28/23 13:07 IMPRESSION: Severe left hydronephrosis due to a 12 mm distal ureterolith. [id number] right hydronephrosis but no radiodense ureterolithiasis on the right side. Electronically Signed: Lance Nieves MD at 18:34 EDT , D/C Instructions Discharge Diet: No restrictions Meaningful Use Info Meaningful Use Meaningful Use Diagnoses (Choose all that apply): None applicable Ischemic Stroke Statin Dosing Therapy Reference: STATIN DOSE THERAPY REFERENCE: * Patients > 75 years receive moderate or high dose statin therapy. * Patients 75 years or YOUNGER should receive HIGH intensity statin dose unless contraindicated. You will be required to document reason for non-treatment if statin daily dose does not meet guidelines. HIGH DOSE STATIN THERAPY DAILY Atorvastatin > than or = to 40 mg Rosuvastatin > than or = to 20 mg Amlodipine + Atorvastatin > than or = to 2.5/40 mg Ezetimibe + Simvastatin 10/80 mg Simvastatin 80mg Discharge Plan Admission Admit Date/Time: 08/27/23 22:08 Primary Reason for Your Visit: chest pain Attending Provider: Valentin Moreland Primary Care Provider: Care Physician,Terese Primary Consulting Providers: Mely Redman Instructions Additional Instructions / Restrictions: Dr. Koehler's office will call to schedule you for a follow up appointment early to mid next week. Take tramadol up to 3 times daily as needed for pain until that appointment. Discharge Orders/Prescriptions Prescriptions: New tramadol 50 mg tablet 50 mg PO TID PRN (Reason: pain) 5 Days Qty: 15 0RF Referrals / Follow Up: Mitchell Koehler MD [Med Staff - Active Staff] - (Needs appt by Sunday September 03, 2023.) Care Physician,No Primary [Primary Care Provider] - Disposition Disposition (needs filled in before D/C Order can be placed): Home, Self Care Charges/Coding Visit Charges Inpatient E&M: 36598 Disch Hosp >30min 08/29/23 1441 <Electronically signed by Valentin Moreland DO> Cosigner Signature (if applicable): CC: Dr. Valentin Moreland DO; No Primary Care Physician~ Signed [facility] Work Phone: 1(261) 692-544705-03-2024 [facility] Medical Records Department [address] [place] [address] [place] [address] Discharge Summary 08/29/23 1137 MR#: [id number] Acct: [id number] Name: SAMEER BEVERLY Rep #: [id number] : 1945 78 From: Valentin Moreland DO PCP: Care Physician,No Primary Status:ADM LOLA Location: [place] [address] Providers Date of Admission: 08/27/23 Date of Discharge: 08/29/23 Primary Care Physician: No Primary Care Phys Reason For Visit: CHEST PAIN Diagnosis Discharge Diagnosis (1) Chest pain: Status: Acute Code(s): R07.9 - Chest pain, unspecified (2) Kidney stone on left side: Status: Acute Code(s): N20.0 - Calculus of kidney (3) Hydronephrosis due to obstruction of ureter: Status: Acute Code(s): N13.1 - Hydronephrosis with ureteral stricture, not elsewhere classified (4) Anemia: Status: Acute Code(s): D64.9 - Anemia, unspecified Medications at Discharge Home Medications tramadol 50 mg tablet 50 mg PO TID PRN pain 5 days #15 tabs 08/29/23 Hospital Course Operations None Procedures Stress test, Transthoracic echo and - (Chest x-ray, CT abdomen with oral contrast) Summary of Care Provided Minutes Spent on Discharge: 35 Hospital Course: Patient is a 78-year-old male who presented [facility] ED on 08/27/2023 with exertional chest pain. Hospital course as noted below. Discharged home with no therapy needs in stable condition on 08/28. 1. Chest pain with exertion; severe aortic stenosis ??? Troponin trend on admit 12 > 43 > 48. EKG with normal sinus rhythm, no ST changes. Chest x-ray nonacute. Stress test on 08/27 with normal EF, no ischemic changes. Echo 08/27 showed EF 65%, moderate concentric LV hypertrophy, severe aortic stenosis. There is concern the patient has symptomatic aortic stenosis. Discussed with cardiology, suyapa for close outpatient follow-up, has appointment scheduled for next FridaySeptember 02. 2. Left-sided kidney stone with hydronephrosis ??? CT abdomen pelvis with oral contrast on 08/27 showed severe left hydronephrosis due to a 12 mm distal ureterolith, as well has mild to moderate right hydro process but no radiodense urolithiasis seen on right side. Kidney function has returned to normal and patient has had adequate urine output. Straight cath on 08/[address] scan with only 100 cc of urine removed and no urine retention after cath. Unfortunately we have no urology services here this week. Discussed briefly with Dr. Koehler on day of discharge and plan will be for patient to follow up with him in the office early to mid next week. Will give patient a short course of tramadol as needed for pain control on discharge, unfortunately need to avoid NSAIDs given new anemia and potential for worsening kidney function. 3. Mild iron deficiency anemia ??? Hemoglobin 11.2 on admit, decreased to 10.7 on hospital day 2. No previous baseline available. Iron studies showed iron deficiency anemia. Patient denied any dark stools but has never had a colonoscopy and discussed possible change in bowel movements so CT abdomen pelvis with oral contrast was obtained. No bowel abnormalities but did show kidney stone as noted above. Suspect blood loss is from kidney stone. Treatment plan as above. Hemoglobin stable around 11 on discharge. Can consider iron supplement in the future as needed, did not prescribe on discharge. 4. Mild creatinine elevation, improved ??? Creatinine 1.32 on admit, improved to 1.04 on hospital day 2 after IV fluid resuscitation. Adequate urine output. No need to monitor BMP further. Total clinical time spent by myself addressing the patient's medical issues, reviewing all the data, and collaborating with patient's care team: 35 minutes. Physical Exam Const alert, oriented x3, no apparent distress and average body habitus General Appearance: cooperative and comfortable HEENT normocephalic, head/scalp atraumatic, hearing grossly normal bilaterally, nasal mucous membranes and turbinates normal and moist oral mucous membranes Eyes PERRL, EOMs intact bilaterally and conjunctivae normal Neck full ROM Chest inspection of chest normal Resp normal respiratory effort, normal air movement, no use of accessory muscles and clear to auscultation bilaterally Cardio regular rate, regular rhythm, no murmurs and peripheral pulses 2+ throughout GI normal to inspection, nondistended, normoactive bowel sounds, soft to palpation, non-tender and non- distended Back/Spine normal ROM Extremity normal to inspection, full ROM and no pedal edema Skin no rashes or lesions noted Neuro moves all extremities and no focal motor deficits Speech: speech normal Psych mental status grossly normal Weight / BMI Weight Weight: 77.111 kg Body Mass Index (BMI) 23.7 ABG / Lab / Microbiology Data 08/29/23 06:05 08/28/23 06:45 Labo (more content not included)...[facility]05-02-2024 Progress note Author Valentin Moreland [facility] August 28, 2023 8:22pm Note Date/Time August 28, 2023 6:08pm [facility] Medical Records Department [address] [place] [address] Progress Note - Hospitalist 08/28/23 1808 MR#: [id number] Acct: [id number] Name: SAMEER BEVERLY Rep #:[id number] : 1945 78 From: Valentin gil DO PCP: Care Physician,No Primary Status :ADM LOLA Location: [place] [address] Reason for Visit Reason for Visit: Diagnoses Unstable angina (08/27/23) Syncope and collapse (08/27/23) Subjective Subjective No acute meds overnight. Patient seen at bedside later this morning, son present. Patient was sitting up comfortably in bed, conversing normally, no acute distress. He completed the cardiac stress test this morning and had no chest pain or discomfort during the test. Patient denies any episodes of chest pain overnight or yet today, however he does note he has not been exerting self much here. Patient otherwise denies any abdominal pain or discomfort. He denies any difficulty or pain with urination. No other acute concerns. Objective Data Objective Data Vital Signs: Vital Signs Temp Pulse Resp BP Pulse Ox O2 Del Method 97.6 F L 70 16 137/70 H 97 Room Air 08/28/23 18:01 08/28/23 18:01 08/28/23 18:01 08/28/23 18:01 08/28/23 18:01 08/28/23 18:01 Oxygen Delivery Method Room Air Weight: 79.5 kg Body Mass Index (BMI) 24.4 Intake & Output: Intake and Output for Last 24 Hours 08/26/23 08/27/23 08/28/23 23:59 23:59 23:59 Intake Total 0 / 0 2275 / 2275 Balance 0 / 0 2275 / 2275 Lab / Micro Data 08/28/23 06:45 08/28/23 06:45 Labs: Laboratory Results - last 24 hr 08/27/23 19:26: WBC 6.4, RBC 3.40 L, Hgb 11.2 L, Hct 32.4 L, MCV 95.3 H, MCH 32.9 H, MCHC 34.6, RDW Std Deviation 44.8 H, RDW Coeff of Greg 13.0, Plt Count 137 L, MPV 9.2, Immature Gran % (Auto) 0.300, Neut % (Auto) 62.9, Lymph % (Auto)26.3, [place] % (Auto) 7.2, Eos % (Auto) 2.7, Baso % (Auto) 0.6, Absolute Neuts (auto) 4.0, Absolute Lymphs (auto) 1.68, Nucleated RBC % 0, Sodium 143, Potassium 3.9, Chloride 113 H, Carbon Dioxide 26.0, Anion Gap 4 L, BUN 23 H, Creatinine 1.32 H, Estim Creat Clear Calc 43.90, Est GFR (MDRD) Af Amer 67, Est GFR (MDRD) Non-Af 56 L, BUN/Creatinine Ratio 17.4, Glucose 124 H, Calcium 8.6, Troponin I High Sens 12 08/27/23 21:29: Magnesium 2.0, Troponin I High Sens 43 08/28/23 01:47: Troponin I High Sens 48 08/28/23 06:45: WBC 6.9, RBC 3.27 L, Hgb 10.7 L, Hct 30.8 L, MCV 94.2 H, MCH 32.7 H, MCHC 34.7, RDW Std Deviation 45.1 H, RDW Coeff of Greg 13.1, Plt Count 119 L, MPV 8.9, Immature Gran % (Auto) 0.300, Neut % (Auto) 74.5 H, Lymph % (Auto) 16.3 L, [place] % (Auto) 6.4, Eos % (Auto) 1.9, Baso % (Auto) 0.6, Absolute Neuts (auto) 5.1, Absolute Lymphs (auto) 1.12, Nucleated RBC % 0, Sodium 144, Potassium 3.9, Chloride 114 H, Carbon Dioxide 24.0, Anion Gap 6, BUN 17, Creatinine 1.04, Estim Creat Clear Calc 61.34, Est GFR (MDRD) Af Amer 89, Est GFR (MDRD) Non-Af 73, BUN/Creatinine Ratio 16.3, Glucose 90, Hemoglobin A1c 4.9,Calcium 8.0 L, Iron 62 L, TIBC 207 L, Iron Saturation 30.0, Ferritin 90, Total Bilirubin 0.50, AST 18, ALT 16, Alkaline Phosphatase 73, Total Protein 5.9 L, Albumin 3.0 L, Globulin 2.9, Albumin/Globulin Ratio 1.0, Triglycerides 60, Cholesterol 145, LDL Cholesterol 100, VLDL Cholesterol 12, HDL Cholesterol 33 L,Vitamin B12 987 H, Folate 36.20 Radiography Diagnostic Testing: Radiology Impression Chest X-Ray 08/27/23 19:29 IMPRESSION: No acute radiographic abnormalities. Electronically Signed: Erwin Edwards MD at 21:25 EDT , Physical Exam Const alert, oriented x3, no apparent distress and average body habitus General Appearance: cooperative and comfortable HEENT normocephalic, head/scalp atraumatic, hearing grossly normal bilaterally, nasal mucous membranes and turbinates normal and moist oral mucous membranes Eyes PERRL, EOMs intact bilaterally and conjunctivae normal Neck full ROM Chest inspection of chest normal Resp normal respiratory effort, normal air movement, no use of accessory muscles and clear to auscultation bilaterally Cardio regular rate, regular rhythm, no murmurs and peripheral pulses 2+ throughout GI normal to inspection, nondistended, normoactive bowel sounds, soft to palpation,non-tender and non-distended Back/Spine normal ROM Extremity normal to inspection, full ROM and no pedal edema Skin no rashes or lesions noted Neuro moves all extremities and no focal motor deficits Speech: speech normal Psych mental status grossly normal Assessment & Plan Assessment/Plan (1) Chest pain: (2) Kidney stone on left side: (3) Hydronephrosis due to obstruction of ureter: (4) Anemia: PLAN: Plan Patient is a 78-year-old male who presented [facility] ED on 08/27/2023 with exertional chest pain. 1. Chest pain with exertion ? Troponin trend on admit 12 > 43 > 48. EKG with normal sinus rhythm, no ST changes. Chest x-ray nonacute. Stress test on 08/27 with normal EF, no ischemic changes. Seems most likely that his chest pain is actually referred pain from the kidney stone as noted below. No further cardiac workup needed. 2. Left-sided kidney stone with hydronephrosis ? CT abdomen pelvis with oral contrast on 08/27 showed severe left hydronephrosis due to a 12 mm distal ureterolith, as well has mild to moderate right hydro process but no radiodense urolithiasis seen on right side. Kidney function has returned to normal and patient has had adequate urine output. Straight cath on 08/[address] scan with only 100 cc of urine removed and no urine retention aftercath. Unfortunately we have no urology services here this week. Given patient's stability, will likely plan for discharge home tomorrow with close outpatient follow-up with Dr. Koehler next week. 3. Mild iron deficiency anemia ? Hemoglobin 11.2 on admit, decreased to 10.7 on hospital day 2. No previous baseline available. Iron studies showed iron deficiency anemia. Patient deniedany dark stools but has never had a colonoscopy and discussed possible change inbowel movements so CT abdomen pelvis with oral contrast was obtained. No bowel abnormalities but did show kidney stone as noted above. Suspect blood loss is from kidney stone. Treatment plan as above. Follow-up a.m. CBC. Will hold on iron supplement for now. 4. Mild creatinine elevation, improved ? Creatinine 1.32 on admit, improved to 1.04 on hospital day 2 after IV fluid resuscitation. Adequate urine output. No need to monitor BMP further. DVT prophylaxis: Lovenox CODE STATUS: DNR CCA, DNI Expected disposition: Home, 1 to 2 days Total clinical time spent by myself addressing the patient's medical issues, reviewing all the data, and collaborating with patient's care team: 35 minutes. Charges/Coding Visit Charges Inpatient E&M: 50726 Subs Hosp L2 08/28/232021 <Electronically signed by Valentin Moreland DO> Cosigner Signature (if applicable): CC: ~ Signed [facility] Work Phone: 1(803) 753-135605-02-2024 Discharge summary Author Arnulfo Sutherland [facility] August 27, 2023 10:58pm Note Date/Time August 27, 2023 8:45pm [facility] Medical Records Department [address] [place] [address] Emergency Department Summary 08/27/23 MR#: [id number] Acct: [id number] Name: SAMEER BEVERLY Rep #:[id number] : 1945 78 From: Arnulfoadriana Sutherland PCP: Care Physician,No Primary Status :ADM LOLA Location: [address] History of Present Illness Chief Complaint: Syncope Narrative Narrative: 78-year-old male presenting after an episode of syncope. He is unable to narrowdown the timeframe completely but states that recently he has been noting that when he does work around the house he has been getting chest pain so bad that hehas to stop and rest he describes it as sharp and aching in the central portion of his chest and a half to rest until he gets better. He states he has a familyhistory of cardiac disease from his father. He states he has not seen a doctor in 10 or 20 years. He takes vitamins at home. He states today he did a lot of work around his house and was going to walk next-door and while he was walking up the driveway was having very severe chest pain and became short of breath to the point that he fainted and he was near the road and somebody found him about 5 minutes later. He states he woke up and was still having chest pain and then was transported by EMS and estimates he might of had another 5 to 10 minutes of chest pain prior to arriving at [facility]. [facility] Medical History Chronic anemia CKD (chronic kidney disease), stage III Thrombocytopenia Medical History no medical history Home Medications NK 08/27/23 [History Last Taken Unknown] Allergy/AdvReac Type Severity Reaction Status Date / Time No Known Allergies Allergy Verified 08/27/23 19:21 Family History (Updated 08/27/23 @ 22:[address] Mely Redman MD) Father Heart disease CAD (coronary artery disease) Hypertension Mother No problems noted. Surgical History (Updated 08/27/23 @ 22:[address] Mely Redman MD) No history of previous surgery Surgical History no surgical history Social History (Updated 08/27/23 @ 22:[address] Mely Redman MD) household members: none Smoking Status: Never smoker alcohol intake: never substance use type: does not use ROS ROS ED Constitutional Constitutional ED: Denies chills, fever(s) or sweats Eyes Eyes: Denies blurry vision or change in vision ENT ENT ED: Denies ear pain or sore throat Cardiovascular Cardiovascular: Reports chest pain; Denies palpitations or racing heartbeat Respiratory/Chest Respiratory/Chest: Denies cough, dyspnea or sputum Gastrointestinal Gastrointestinal: Denies abdominal pain, constipation, diarrhea, nausea or vomiting Genitourinary Genitourinary ED: Denies dysuria, hematuria or urinary frequency Musculoskeletal Musculoskeletal: Denies arthralgias, myalgias or neck pain Integumentary Denies abscess, Abrasions or rash Neurologic Neurologic: Denies headache(s), paresthesias or weakness Psychiatric Psychiatric: Denies anxiety, depression, suicidal ideation or suicidal thoughts Endocrine Endocrinology: Denies polydipsia or polyuria EXAM Physical Exam Const Vital Signs: 08/27/23 19:21 08/27/23 19:21 08/27/23 19:38 Temperature 98.6 F Temperature Source Temporal Pulse Rate 81 Pulse Rate [Sitting (for 1 minute prior to obtaining)] Pulse Rate [Standing (for 1 minute prior to obtaining)] Respiratory Rate 17 Respiratory Effort Normal Non-Labored Respiratory Pattern Normal Blood Pressure 94/77 Blood Pressure [Lying] Blood Pressure [Sitting (for 1 minute prior to obtaining)] Blood Pressure [Standing (for 1 minute prior to obtaining)] Blood Pressure Mean 82 Blood Pressure Mean [Lying] Blood Pressure Mean [Sitting (for 1 minute prior to obtaining)] Blood Pressure Mean [Standing (for 1 minute prior to obtaining)] Pulse Ox 99 Oxygen Delivery Method Room Air Nasal Cannula 08/27/23 20:21 08/27/23 21:01 08/27/23 21:00 Temperature Temperature Source Pulse Rate 79 87 Pulse Rate [Sitting (for 1 minute prior to obtaining)] 85 Pulse Rate [Standing (for 1 minute prior to obtaining)] 87 Respiratory Rate 16 18 Respiratory Effort Respiratory Pattern Blood Pressure 127/67 H 128/64 H Blood Pressure [Lying] 132/65 H Blood Pressure [Sitting (for 1 minute prior to obtaining)] 134/71 H Blood Pressure [Standing (for 1 minute prior to obtaining)] 128/64 H Blood Pressure Mean 87 85 Blood Pressure Mean [Lying] 87 Blood Pressure Mean [Sitting (for 1 minute prior to obtaining)] 92 Blood Pressure Mean [Standing (for 1 minute prior to obtaining)] 85 Pulse Ox 98 100 Oxygen Delivery Method Room Air Room Air 08/27/23 22:00 Temperature 97.6 F L Temperature Source Pulse Rate 72 Pulse Rate [Sitting (for 1 minute prior to obtaining)] Pulse Rate [Standing (for 1 minute prior to obtaining)] Respiratory Rate 13 Respiratory Effort Respiratory Pattern Blood Pressure 167/70 H Blood Pressure [Lying] Blood Pressure [Sitting (for 1 minute prior to obtaining)] Blood Pressure [Standing (for 1 minute prior to obtaining)] Blood Pressure Mean 102 Blood Pressure Mean [Lying] Blood Pressure Mean [Sitting (for 1 minute prior to obtaining)] Blood Pressure Mean [Standing (for 1 minute prior to obtaining)] Pulse Ox 98 Oxygen Delivery Method Positive well nourished General Appearance ED: NAD; Negative for pallor HEENT Reports moist mucous membranes Eyes PERRL and EOMs intact bilaterally Chest Wall inspection of chest normal Resp normal respiratory effort and clear to auscultation bilaterally Auscultation: Negative for rales, rhonchi or wheezes Cardio regular rate and regular rhythm GI normal to inspection, nondistended, normoactive bowel sounds Neuro oriented x3 and CN's II-XII intact bilaterally Sensorium / Orientation: alert Skin no rashes or lesions noted General Skin Exam: Negative for jaundice or pallor MDM MDM MDM Narrative Medical decision making narrative: Patient presenting with chest pain on exertion which she has had on and off recently. He had an episode of syncope today and had a lot of chest pain and shortness of breath prior. Differential includes ACS, dehydration, pneumonia. Anemia, electrolyte abnormality, syncope, dysrhythmia. CBC was obtained to assess white blood cell count, hemoglobin, platelets. BMP to assess renal function, electrolytes, glucose. High-sensitivity troponin EKG to assess for ischemia. Chest x-ray to rule out pneumonia. CBC shows normal white blood cellcount 6.4. Hemoglobin 0.2. Platelets 137. Creatinine slightly elevated 1.32 there was no comparison. Initial troponin 12. Delta troponin 43 for persistenttoday significant troponin change. EKG on my interpretation showed a sinus rhythm at 80 bpm without sign of ischemic change or chest x-ray on my interpretation showed no acute process. The radiologist agrees. Discussed withhospitalist for admission. Impression: 1. Chest pain 2. Elevated troponin Lab Data Attestation: I reviewed the patient's lab results. Labs: Laboratory Results - last 24 hr 08/27/23 08/27/23 19:26 21:29 WBC 6.4 RBC 3.40 L Hgb 11.2 L Hct 32.4 L MCV 95.3 H MCH 32.9 H MCHC 34.6 RDW Std Deviation 44.8 H RDW Coeff of Greg 13.0 Plt Count 137 L MPV 9.2 Immature Gran % (Auto) 0.300 Neut % (Auto) 62.9 Lymph % (Auto) 26.3 [place] % (Auto) 7.2 Eos % (Auto) 2.7 Baso % (Auto) 0.6 Absolute Neuts (auto) 4.0 Absolute Lymphs (auto) 1.68 Nucleated RBC % 0 Sodium 143 Potassium 3.9 Chloride 113 H Carbon Dioxide 26.0 Anion Gap 4 L BUN 23 H Creatinine 1.32 H Estim Creat Clear Calc 43.90 Est GFR (MDRD) Af Amer 67 Est GFR (MDRD) Non-Af 56 L BUN/Creatinine Ratio 17.4 Glucose 124 H Calcium 8.6 Troponin I High Sens 12 43 Radiography Diagnostic Testing: Clinical Impression(s) from Imaging Studies Chest X-Ray 08/27/23 19:29 IMPRESSION: No acute radiographic abnormalities. Electronically Signed: Erwin Edwards MD at 21:25 EDT , Discharge Plan Triage Chief Complaint: Syncope ED Provider: Arnulfo Sutherland Dx/Rx/DC Orders Primary Care Provider: Care Physician,No Primary What to do if you have Problems For any increased pain, shortness of breath, bleeding, nausea or vomiting, chestpain, or any unexpected problems, contact your Primary Care Provider. Call [facility] ([phone]) or report to the closest Emergency Room. Call 911 if necessary. 08/27/232257 <Electronically signed by Arnulfo Sutherland DO> Cosigner Signature (if applicable): CC: No Primary Care Physician ~ Signed [facility] Work Phone: 1(587) 650-805705-02-2024 History and physical note Author Mely Redman [facility] August 27, 2023 10:30pm Note Date/Time August 27, 2023 10:08p [facility] Medical Records Department [address] [place] [address] H&P Exam - Hospitalist 08/27/232204 MR#: [id number] Acct: [id number] Name: SAMEER BEVERLY Rep #:[id number] : 1945 78 From: Mely Redman MD PCP: Care Physician,No Primary Status :REG ER Location: ED HPI - General General Date of Admission: 08/27/23 Date of Service: 08/27/23 Chief Complaint: Chest pain, dyspnea, syncopal event. HPI Narrative The patient is a 78 y/o M w/ PMHx: Suspected CKD stage III unclear subtype, Chronic anemia who presents to the [facility] ED on 08/27/23 with history of episodes of exertional chest discomfort which started recently over the last 2 months, improving when he rests, described as sharp and aching in the midsternal chest with no specific radiation with associated mild dyspnea with recurrent episode on day of presentation while he was walking up the driveway with similar chest discomfort however dyspnea was more pronounced and he became lightheaded and dizzy and passed out supposedly found approximately 5 minutes following with ongoing chest discomfort upon his awakening with EMS evaluation with administration of sublingual nitroglycerin with resolution of chest pain following this after 5 to 10 minutes with transition then to the ED for further evaluation. He notes with this recent events of chest discomfort his pain was rated 10 out of 10 in severity at its worst with dyspnea and some diaphoresis but no nausea or emesis. Currently in the ED he notes he is chest pain-free. Workup in the ED included T98.6, heart rate 81, BP 94/77, respiratory rate 17, 99% on room air, heart rate orthostatics not marked appearing, BP orthostatics not marked appearing either, most recent repeat blood pressure 132/65, CBC with WBC 6.4, hemoglobin 11.2, MCV 95.3, platelet 137 without marked shift, BMP with chloride 113, BUN/creatinine 23/1.32, GFR 56, glucose 124, troponin 12 with repeat delta 43, chest x-ray with no acute cardiopulmonary findings, EKG sinus rhythm with nonspecific ST-T changes with no acute evidence of ischemia. In theED discussed patient with ED physician requested full-strength aspirin therapy be administered. [facility] Medical History Chronic anemia CKD (chronic kidney disease), stage III Thrombocytopenia Medical History no medical history Home Medications NK 08/27/23 [History Last Taken Unknown] Allergy/AdvReac Type Severity Reaction Status Date / Time No Known Allergies Allergy Verified 08/27/23 19:21 Family History (Updated 08/27/23 @ 22:[address] Mely Redman MD) Father Heart disease CAD (coronary artery disease) Hypertension Mother No problems noted. Surgical History (Updated 08/27/23 @ 22:[address] Mely Redman MD) No history of previous surgery Surgical History no surgical history Social History (Updated 08/27/23 @ 22:[address] Mely Redman MD) household members: none Smoking Status: Never smoker alcohol intake: never substance use type: does not use ROS ROS Narrative Admission Review of Systems: CONSTITUTIONAL: No weight loss, fever, chills, + weakness or fatigue. HEENT: Eyes: No visual loss, blurred vision, double vision or yellow sclerae. Ears, Nose, Throat: No hearing loss, sneezing, congestion, runny nose or sore throat. SKIN: No rash or itching, lesions, wounds. CARDIOVASCULAR: + Chest pain, syncopal event. No palpitations, edema, orthopnea. RESPIRATORY: + Exertional dyspnea with chest discomfort. No cough or sputum, wheezing, hemoptysis. GASTROINTESTINAL: No anorexia, nausea, vomiting or diarrhea, abdominal pain, melena, BRBPR. GENITOURINARY: No dysuria, frequency, urgency or retention. NEUROLOGICAL: No headache, dizziness, syncope, paralysis, ataxia, numbness or tingling in the extremities, focal weakness, change in bowel or bladder control,seizure. MUSCULOSKELETAL: + muscle, back pain, joint pain or stiffness. HEMATOLOGIC: + Possibly chronic anemia, no reported easy bleeding/bruising history. LYMPHATICS: No enlarged nodes. No history of splenectomy. PSYCHIATRIC: No history of depression or anxiety. ENDOCRINOLOGIC: + reports of sweating. No cold or heat intolerance. No polyuriaor polydipsia. ALLERGIES: No history of asthma, hives, eczema or rhinitis. Vital Signs Vital Signs Vital Signs: 08/27/23 19:21 08/27/23 19:21 08/27/23 19:38 Temperature 98.6 F Temperature Source Temporal Pulse Rate 81 Pulse Rate [Sitting (for 1 minute prior to obtaining)] Pulse Rate [Standing (for 1 minute prior to obtaining)] Respiratory Rate 17 Respiratory Effort Normal Non-Labored Respiratory Pattern Normal Blood Pressure 94/77 Blood Pressure [Lying] Blood Pressure [Sitting (for 1 minute prior to obtaining)] Blood Pressure [Standing (for 1 minute prior to obtaining)] Blood Pressure Mean 82 Blood Pressure Mean [Lying] Blood Pressure Mean [Sitting (for 1 minute prior to obtaining)] Blood Pressure Mean [Standing (for 1 minute prior to obtaining)] Pulse Ox 99 Oxygen Delivery Method Room Air Nasal Cannula 08/27/23 20:21 08/27/23 21:08/27/23 21:00 Temperature Temperature Source Pulse Rate 79 87 Pulse Rate [Sitting (for 1 minute prior to obtaining)] 85 Pulse Rate [Standing (for 1 minute prior to obtaining)] 87 Respiratory Rate 16 18 Respiratory Effort Respiratory Pattern Blood Pressure 127/67 H 128/64 H Blood Pressure [Lying] 132/65 H Blood Pressure [Sitting (for 1 minute prior to obtaining)] 134/71 H Blood Pressure [Standing (for 1 minute prior to obtaining)] 128/64 H Blood Pressure Mean 87 85 Blood Pressure Mean [Lying] 87 Blood Pressure Mean [Sitting (for 1 minute prior to obtaining)] 92 Blood Pressure Mean [Standing (for 1 minute prior to obtaining)] 85 Pulse Ox 98 100 Oxygen Delivery Method Room Air Room Air Weight Weight: 180 lb 5.41 oz Body Mass Index (BMI) 27.4 Physical Exam Narrative Physical Examination: General: Awake, alert, oriented x 3 and cooperative, seated upright in the ED bed in no apparent distress, denies any current chest pain. Skin: Normal color, normal turgor, no icterus, no cyanosis. HEENT: AT/NC, EOMI, PERRLA, mildly dry MM, no carotid bruits or JVD noted. Lungs: Mildly diminished, greater bases, appropriate effort, no rales, ronchi orwheezing. Heart: Regular rate and rhythm; no gallop, rub audible, + SM present. Abdomen: Soft, mildly overweight, NTTP, ND, mildly hyperactive BS, no appreciated HSM. Extremities: No cyanosis, no clubbing, mild ankle not markedly pitting edema present. Neurological: Patient awake, alert, oriented as noted, cognitive function intact; pupils equally reactive to light and accommodation, cranial nerves grossly normal, moving all 4 extremities, no focal deficits, strength mildly to moderately globally decreased. Psychiatric: Affect appears fatigued otherwise normal, no acute evidence of depressive or anxiety feelings. Results Lab / Micro Data 08/27/23 19:26 08/27/23 19:26 Labs: Laboratory Results - last 24 hr 08/27/23 19:26: WBC 6.4, RBC 3.40 L, Hgb 11.2 L, Hct 32.4 L, MCV 95.3 H, MCH 32.9 H, MCHC 34.6, RDW Std Deviation 44.8 H, RDW Coeff of Greg 13.0, Plt Count 137 L, MPV 9.2, Immature Gran % (Auto) 0.300, Neut % (Auto) 62.9, Lymph % (Auto)26.3, [place] % (Auto) 7.2, Eos % (Auto) 2.7, Baso % (Auto) 0.6, Absolute Neuts (auto) 4.0, Absolute Lymphs (auto) 1.68, Nucleated RBC % 0, Sodium 143, Potassium 3.9, Chloride 113 H, Carbon Dioxide 26.0, Anion Gap 4 L, BUN 23 H, Creatinine 1.32 H, Estim Creat Clear Calc 43.90, Est GFR (MDRD) Af Amer 67, Est GFR (MDRD) Non-Af 56 L, BUN/Creatinine Ratio 17.4, Glucose 124 H, Calcium 8.6, Troponin I High Sens 12 08/27/23 21:29: Troponin I High Sens 43 Imaging Radiology Impression Chest X-Ray 08/27/23 19:29 IMPRESSION: No acute radiographic abnormalities. Electronically Signed: Erwin Edwards MD at 21:25 EDT , Assessment & Plan Assessment/Plan (1) Unstable angina: (2) Syncope: PLAN: Plan The patient is a 78 y/o M w/ PMHx: Suspected CKD stage III unclear subtype, Chronic anemia who presents to the [facility] ED on 08/27/23 with history of episodes of exertional chest discomfort which started recently over the last week, improvingwhen he rests, described as sharp and aching in the midsternal chest with no specific radiation with associated mild dyspnea with recurrent episode on day ofpresentation while he was walking up the driveway with similar chest discomfort however dyspnea was more pronounced and he became lightheaded and dizzy and passed out supposedly found approximately 5 minutes following with ongoing chestdiscomfort upon his awakening with EMS evaluation with administration of sublingual nitroglycerin with resolution of chest pain following. #1. Chest pain with associated syncopal event with incidentally noted murmur onevaluation: EKG in ED SR with nonspecific ST-T changes with no acute evidence ofischemia, CXR w/ no concerning acute cardiopulmonary finding, initial trop 12 with repeat delta 43. Will admit to PCU, place on a monitored bed to assure no acute myocardial infarction with serial cardiac enzymes and EKGs. If repeat serial cardiac enzymes and EKGs remain unremarkable will pursue a.m. cardiac stress testing. Given syncopal event we will also request echocardiogram. FLP in AM. Magnesium level requested. If any changes or concerning events low threshold to involve cardiology. ASA, NG, morphine. #2. Suspected Chronic Kidney Disease Stage III: Admission BUN/Cr 23/1.32, GFR 56, baseline renal function unknown as patient has not been to a physician in 10to 20 years thus no lab comparisons, repeat BMP in AM to further elucidate chronicity. #3. Macrocytic anemia, unclear chronicity: Admission hemoglobin 11.2, MCV 95.3,no comparison labs available, will obtain iron panel, ferritin, vitamin B12 and folic acid levels to be cautious given patient high risk for poor follow-up given history of not following with any physician, will repeat CBC in AM. #4. Hyperglycemia, mild: Admission glucose 124, not markedly elevated but givenfor follow-up history be cautious obtain hemoglobin A1c. #5. Thrombocytopenia, unclear chronicity: Admission platelets 137, unclear if this is chronic or acute in nature as no comparison labs, will trend CBC. #6. Overweight: Weight loss and lifestyle changes encouraged. #7. DVT prophylaxis: Lovenox. #8. CODE status: Patient HCPOA and living will are not in place but he notes his youngest son who is present would be his decision-maker if medically necessary. Discussed CODE status at length including difference between FULL code, DNR-CCA and DNR-CC status. Following discussions about the differences in these status, requested DNR-CCA, no intubation status. Advanced Care Planning Face to Face Time: 16 minutes. Charges/Coding Visit Charges Inpatient E&M: 95672 Init Hosp L2 Procedures Hospitalists Procedures: 76969 Advncd Care Plan 30 Min 08/27/23 2230 <Electronically signed by Mely Redman MD> Cosigner Signature (if applicable): CC: Dr. Mely Redman MD; No Primary Care Physician~ Signed [facility] Work Phone: [phone]) 244-707505-01-2024 Discharge summary Author Arnulfo Sutherland [facility] August 27, 2023 10:58pm Note Date/Time August 27, 2023 8:45pm [facility] Medical Records Department [address] [place] [address] Emergency Department Summary 08/27/23 MR#: [id number] Acct: [id number] Name: SAMEER BEVERLY Rep #:[id number] : 1945 78 From: Arnulfo Sutherland DO PCP: Care Physician,No Primary Status :ADM LOLA Location: [place] [address] HPI History of Present Illness Chief Complaint: Syncope Narrative Narrative: 78-year-old male presenting after an episode of syncope. He is unable to narrowdown the timeframe completely but states that recently he has been noting that when he does work around the house he has been getting chest pain so bad that hehas to stop and rest he describes it as sharp and aching in the central portion of his chest and a half to rest until he gets better. He states he has a familyhistory of cardiac disease from his father. He states he has not seen a doctor in 10 or 20 years. He takes vitamins at home. He states today he did a lot of work around his house and was going to walk next-door and while he was walking up the driveway was having very severe chest pain and became short of breath to the point that he fainted and he was near the road and somebody found him about 5 minutes later. He states he woke up and was still having chest pain and then was transported by EMS and estimates he might of had another 5 to 10 minutes of chest pain prior to arriving at [facility]. [facility] Medical History Chronic anemia CKD (chronic kidney disease), stage III Thrombocytopenia Medical History no medical history Home Medications NK 08/27/23 [History Last Taken Unknown] Allergy/AdvReac Type Severity Reaction Status Date / Time No Known Allergies Allergy Verified 08/27/23 19:21 Family History (Updated 08/27/23 @ 22:[address] Mely Redman MD) Father Heart disease CAD (coronary artery disease) Hypertension Mother No problems noted. Surgical History (Updated 08/27/23 @ 22:[address] Mely Redman MD) No history of previous surgery Surgical History no surgical history Social History (Updated 08/27/23 @ 22:[address] Mely Redman MD) household members: none Smoking Status: Never smoker alcohol intake: never substance use type: does not use ROS ROS ED Constitutional Constitutional ED: Denies chills, fever(s) or sweats Eyes Eyes: Denies blurry vision or change in vision ENT ENT ED: Denies ear pain or sore throat Cardiovascular Cardiovascular: Reports chest pain; Denies palpitations or racing heartbeat Respiratory/Chest Respiratory/Chest: Denies cough, dyspnea or sputum Gastrointestinal Gastrointestinal: Denies abdominal pain, constipation, diarrhea, nausea or vomiting Genitourinary Genitourinary ED: Denies dysuria, hematuria or urinary frequency Musculoskeletal Musculoskeletal: Denies arthralgias, myalgias or neck pain Integumentary Denies abscess, Abrasions or rash Neurologic Neurologic: Denies headache(s), paresthesias or weakness Psychiatric Psychiatric: Denies anxiety, depression, suicidal ideation or suicidal thoughts Endocrine Endocrinology: Denies polydipsia or polyuria EXAM Physical Exam Const Vital Signs: 08/27/23 19:21 08/27/23 19:21 08/27/23 19:38 Temperature 98.6 F Temperature Source Temporal Pulse Rate 81 Pulse Rate [Sitting (for 1 minute prior to obtaining)] Pulse Rate [Standing (for 1 minute prior to obtaining)] Respiratory Rate 17 Respiratory Effort Normal Non-Labored Respiratory Pattern Normal Blood Pressure 94/77 Blood Pressure [Lying] Blood Pressure [Sitting (for 1 minute prior to obtaining)] Blood Pressure [Standing (for 1 minute prior to obtaining)] Blood Pressure Mean 82 Blood Pressure Mean [Lying] Blood Pressure Mean [Sitting (for 1 minute prior to obtaining)] Blood Pressure Mean [Standing (for 1 minute prior to obtaining)] Pulse Ox 99 Oxygen Delivery Method Room Air Nasal Cannula 08/27/23 20:21 08/27/23 21:01 08/27/23 21:00 Temperature Temperature Source Pulse Rate 79 87 Pulse Rate [Sitting (for 1 minute prior to obtaining)] 85 Pulse Rate [Standing (for 1 minute prior to obtaining)] 87 Respiratory Rate 16 18 Respiratory Effort Respiratory Pattern Blood Pressure 127/67 H 128/64 H Blood Pressure [Lying] 132/65 H Blood Pressure [Sitting (for 1 minute prior to obtaining)] 134/71 H Blood Pressure [Standing (for 1 minute prior to obtaining)] 128/64 H Blood Pressure Mean 87 85 Blood Pressure Mean [Lying] 87 Blood Pressure Mean [Sitting (for 1 minute prior to obtaining)] 92 Blood Pressure Mean [Standing (for 1 minute prior to obtaining)] 85 Pulse Ox 98 100 Oxygen Delivery Method Room Air Room Air 08/27/23 22:00 Temperature 97.6 F L Temperature Source Pulse Rate 72 Pulse Rate [Sitting (for 1 minute prior to obtaining)] Pulse Rate [Standing (for 1 minute prior to obtaining)] Respiratory Rate 13 Respiratory Effort Respiratory Pattern Blood Pressure 167/70 H Blood Pressure [Lying] Blood Pressure [Sitting (for 1 minute prior to obtaining)] Blood Pressure [Standing (for 1 minute prior to obtaining)] Blood Pressure Mean 102 Blood Pressure Mean [Lying] Blood Pressure Mean [Sitting (for 1 minute prior to obtaining)] Blood Pressure Mean [Standing (for 1 minute prior to obtaining)] Pulse Ox 98 Oxygen Delivery Method Positive well nourished General Appearance ED: NAD; Negative for pallor HEENT Reports moist mucous membranes Eyes PERRL and EOMs intact bilaterally Chest Wall inspection of chest normal Resp normal respiratory effort and clear to auscultation bilaterally Auscultation: Negative for rales, rhonchi or wheezes Cardio regular rate and regular rhythm GI normal to inspection, nondistended, normoactive bowel sounds Neuro oriented x3 and CN's II-XII intact bilaterally Sensorium / Orientation: alert Skin no rashes or lesions noted General Skin Exam: Negative for jaundice or pallor MDM MDM MDM Narrative Medical decision making narrative: Patient presenting with chest pain on exertion which she has had on and off recently. He had an episode of syncope today and had a lot of chest pain and shortness of breath prior. Differential includes ACS, dehydration, pneumonia. Anemia, electrolyte abnormality, syncope, dysrhythmia. CBC was obtained to assess white blood cell count, hemoglobin, platelets. BMP to assess renal function, electrolytes, glucose. High-sensitivity troponin EKG to assess for ischemia. Chest x-ray to rule out pneumonia. CBC shows normal white blood cellcount 6.4. Hemoglobin 0.2. Platelets 137. Creatinine slightly elevated 1.32 there was no comparison. Initial troponin 12. Delta troponin 43 for persistenttoday significant troponin change. EKG on my interpretation showed a sinus rhythm at 80 bpm without sign of ischemic change or chest x-ray on my interpretation showed no acute process. The radiologist agrees. Discussed withhospitalist for admission. Impression: 1. Chest pain 2. Elevated troponin Lab Data Attestation: I reviewed the patient's lab results. Labs: Laboratory Results - last 24 hr 08/27/23 08/27/23 19:26 21:29 WBC 6.4 RBC 3.40 L Hgb 11.2 L Hct 32.4 L MCV 95.3 H MCH 32.9 H MCHC 34.6 RDW Std Deviation 44.8 H RDW Coeff of Greg 13.0 Plt Count 137 L MPV 9.2 Immature Gran % (Auto) 0.300 Neut % (Auto) 62.9 Lymph % (Auto) 26.3 [place] % (Auto) 7.2 Eos % (Auto) 2.7 Baso % (Auto) 0.6 Absolute Neuts (auto) 4.0 Absolute Lymphs (auto) 1.68 Nucleated RBC % 0 Sodium 143 Potassium 3.9 Chloride 113 H Carbon Dioxide 26.0 Anion Gap 4 L BUN 23 H Creatinine 1.32 H Estim Creat Clear Calc 43.90 Est GFR (MDRD) Af Amer 67 Est GFR (MDRD) Non-Af 56 L BUN/Creatinine Ratio 17.4 Glucose 124 H Calcium 8.6 Troponin I High Sens 12 43 Radiography Diagnostic Testing: Clinical Impression(s) from Imaging Studies Chest X-Ray 08/27/23 19:29 IMPRESSION: No acute radiographic abnormalities. Electronically Signed: Erwin Edwards MD at 21:25 EDT , Discharge Plan Triage Chief Complaint: Syncope ED Provider: Arnulfo Sutherland Dx/Rx/DC Orders Primary Care Provider: Care Physician,No Primary What to do if you have Problems For any increased pain, shortness of breath, bleeding, nausea or vomiting, chestpain, or any unexpected problems, contact your Primary Care Provider. Call [facility] ([phone]) or report to the closest Emergency Room. Call 911 if necessary. 08/27/23 7428 <Electronically signed by Arnulfo Sutherland DO> Cosigner Signature (if applicable): CC: No Primary Care Physician ~ Signed [facility] Work Phone: Evaluation note* Diagnosis Onset Date Resolution Status Syncope acute Unstable angina acute [facility] Work Phone: Evaluation note* Diagnosis Onset Date Resolution Status Anemia acute Chest pain acute Hydronephrosis due to obstruction of ureter acute Kidney stone on left side ac mallika Syncope acute Unstable angina acute [facility] Work Phone: History and physical note Author Mely Redman [facility] August 27, 2023 10:30pm Note Date/Time August 27, 2023 10:08p m [facility] Medical Records Department [address] [place] [address] H&P Exam - Hospitalist 08/27/232204 MR#: [id number] Acct: [id number] Name: SAMEER BEVERLY Rep #:[id number] : 1945 78 From: Mely Redman MD PCP: Care Physician,No Primary Status :REG ER Location: ED HPI - General General Date of Admission: 08/27/23 Date of Service: 08/27/23 Chief Complaint: Chest pain, dyspnea, syncopal event. HPI Narrative The patient is a 78 y/o M w/ PMHx: Suspected CKD stage III unclear subtype, Chronic anemia who presents to the [facility] ED on 08/27/23 with history of episodes of exertional chest discomfort which started recently over the last 2 months, improving when he rests, described as sharp and aching in the midsternal chest with no specific radiation with associated mild dyspnea with recurrent episode on day of presentation while he was walking up the driveway with similar chest discomfort however dyspnea was more pronounced and he became lightheaded and dizzy and passed out supposedly found approximately 5 minutes following with ongoing chest discomfort upon his awakening with EMS evaluation with administration of sublingual nitroglycerin with resolution of chest pain following this after 5 to 10 minutes with transition then to the ED for further evaluation. He notes with this recent events of chest discomfort his pain was rated 10 out of 10 in severity at its worst with dyspnea and some diaphoresis but no nausea or emesis. Currently in the ED he notes he is chest pain-free. Workup in the ED included T98.6, heart rate 81, BP 94/77, respiratory rate 17, 99% on room air, heart rate orthostatics not marked appearing, BP orthostatics not marked appearing either, most recent repeat blood pressure 132/65, CBC with WBC 6.4, hemoglobin 11.2, MCV 95.3, platelet 137 without marked shift, BMP with chloride 113, BUN/creatinine 23/1.32, GFR 56, glucose 124, troponin 12 with repeat delta 43, chest x-ray with no acute cardiopulmonary findings, EKG sinus rhythm with nonspecific ST-T changes with no acute evidence of ischemia. In theED discussed patient with ED physician requested full-strength aspirin therapy be administered. [facility] Medical History Chronic anemia CKD (chronic kidney disease), stage III Thrombocytopenia Medical History no medical history Home Medications NK 08/27/23 [History Last Taken Unknown] Allergy/AdvReac Type Severity Reaction Status Date / Time No Known Allergies Allergy Verified 08/27/23 19:21 Family History (Updated 08/27/23 @ 22:[address] Mely Redman MD) Father Heart disease CAD (coronary artery disease) Hypertension Mother No problems noted. Surgical History (Updated 08/27/23 @ 22:[address] Mely Redman MD) No history of previous surgery Surgical History no surgical history Social History (Updated 08/27/23 @ 22:[address] Mely Redman MD) household members: none Smoking Status: Never smoker alcohol intake: never substance use type: does not use ROS ROS Narrative Admission Review of Systems: CONSTITUTIONAL: No weight loss, fever, chills, + weakness or fatigue. HEENT: Eyes: No visual loss, blurred vision, double vision or yellow sclerae. Ears, Nose, Throat: No hearing loss, sneezing, congestion, runny nose or sore throat. SKIN: No rash or itching, lesions, wounds. CARDIOVASCULAR: + Chest pain, syncopal event. No palpitations, edema, orthopnea. RESPIRATORY: + Exertional dyspnea with chest discomfort. No cough or sputum, wheezing, hemoptysis. GASTROINTESTINAL: No anorexia, nausea, vomiting or diarrhea, abdominal pain, melena, BRBPR. GENITOURINARY: No dysuria, frequency, urgency or retention. NEUROLOGICAL: No headache, dizziness, syncope, paralysis, ataxia, numbness or tingling in the extremities, focal weakness, change in bowel or bladder control,seizure. MUSCULOSKELETAL: + muscle, back pain, joint pain or stiffness. HEMATOLOGIC: + Possibly chronic anemia, no reported easy bleeding/bruising history. LYMPHATICS: No enlarged nodes. No history of splenectomy. PSYCHIATRIC: No history of depression or anxiety. ENDOCRINOLOGIC: + reports of sweating. No cold or heat intolerance. No polyuriaor polydipsia. ALLERGIES: No history of asthma, hives, eczema or rhinitis. Vital Signs Vital Signs Vital Signs: 08/27/23 19:21 08/27/23 19:21 08/27/23 19:38 Temperature 98.6 F Temperature Source Temporal Pulse Rate 81 Pulse Rate [Sitting (for 1 minute prior to obtaining)] Pulse Rate [Standing (for 1 minute prior to obtaining)] Respiratory Rate 17 Respiratory Effort Normal Non-Labored Respiratory Pattern Normal Blood Pressure 94/77 Blood Pressure [Lying] Blood Pressure [Sitting (for 1 minute prior to obtaining)] Blood Pressure [Standing (for 1 minute prior to obtaining)] Blood Pressure Mean 82 Blood Pressure Mean [Lying] Blood Pressure Mean [Sitting (for 1 minute prior to obtaining)] Blood Pressure Mean [Standing (for 1 minute prior to obtaining)] Pulse Ox 99 Oxygen Delivery Method Room Air Nasal Cannula 08/27/23 20:21 08/27/23 21:01 08/27/23 21:00 Temperature Temperature Source Pulse Rate 79 87 Pulse Rate [Sitting (for 1 minute prior to obtaining)] 85 Pulse Rate [Standing (for 1 minute prior to obtaining)] 87 Respiratory Rate 16 18 Respiratory Effort Respiratory Pattern Blood Pressure 127/67 H 128/64 H Blood Pressure [Lying] 132/65 H Blood Pressure [Sitting (for 1 minute prior to obtaining)] 134/71 H Blood Pressure [Standing (for 1 minute prior to obtaining)] 128/64 H Blood Pressure Mean 87 85 Blood Pressure Mean [Lying] 87 Blood Pressure Mean [Sitting (for 1 minute prior to obtaining)] 92 Blood Pressure Mean [Standing (for 1 minute prior to obtaining)] 85 Pulse Ox 98 100 Oxygen Delivery Method Room Air Room Air Weight Weight: 180 lb 5.41 oz Body Mass Index (BMI) 27.4 Physical Exam Narrative Physical Examination: General: Awake, alert, oriented x 3 and cooperative, seated upright in the ED bed in no apparent distress, denies any current chest pain. Skin: Normal color, normal turgor, no icterus, no cyanosis. HEENT: AT/NC, EOMI, PERRLA, mildly dry MM, no carotid bruits or JVD noted. Lungs: Mildly diminished, greater bases, appropriate effort, no rales, ronchi orwheezing. Heart: Regular rate and rhythm; no gallop, rub audible, + SM present. Abdomen: Soft, mildly overweight, NTTP, ND, mildly hyperactive BS, no appreciated HSM. Extremities: No cyanosis, no clubbing, mild ankle not markedly pitting edema present. Neurological: Patient awake, alert, oriented as noted, cognitive function intact; pupils equally reactive to light and accommodation, cranial nerves grossly normal, moving all 4 extremities, no focal deficits, strength mildly to moderately globally decreased. Psychiatric: Affect appears fatigued otherwise normal, no acute evidence of depressive or anxiety feelings. Results Lab / Micro Data 08/27/23 19:26 08/27/23 19:26 Labs: Laboratory Results - last 24 hr 08/27/23 19:26: WBC 6.4, RBC 3.40 L, Hgb 11.2 L, Hct 32.4 L, MCV 95.3 H, MCH 32.9 H, MCHC 34.6, RDW Std Deviation 44.8 H, RDW Coeff of Greg 13.0, Plt Count 137 L, MPV 9.2, Immature Gran % (Auto) 0.300, Neut % (Auto) 62.9, Lymph % (Auto)26.3, [place] % (Auto) 7.2, Eos % (Auto) 2.7, Baso % (Auto) 0.6, Absolute Neuts (auto) 4.0, Absolute Lymphs (auto) 1.68, Nucleated RBC % 0, Sodium 143, Potassium 3.9, Chloride 113 H, Carbon Dioxide 26.0, Anion Gap 4 L, BUN 23 H, Creatinine 1.32 H, Estim Creat Clear Calc 43.90, Est GFR (MDRD) Af Amer 67, Est GFR (MDRD) Non-Af 56 L, BUN/Creatinine Ratio 17.4, Glucose 124 H, Calcium 8.6, Troponin I High Sens 12 08/27/23 21:29: Troponin I High Sens 43 Imaging Radiology Impression Chest X-Ray 08/27/23 19:29 IMPRESSION: No acute radiographic abnormalities. Electronically Signed: Erwin Edwards MD at 21:25 EDT , Assessment & Plan Assessment/Plan (1) Unstable angina: (2) Syncope: PLAN: Plan The patient is a 78 y/o M w/ PMHx: Suspected CKD stage III unclear subtype, Chronic anemia who presents to the [facility] ED on 08/27/23 with history of episodes of exertional chest discomfort which started recently over the last week, improvingwhen he rests, described as sharp and aching in the midsternal chest with no specific radiation with associated mild dyspnea with recurrent episode on day ofpresentation while he was walking up the driveway with similar chest discomfort however dyspnea was more pronounced and he became lightheaded and dizzy and passed out supposedly found approximately 5 minutes following with ongoing chestdiscomfort upon his awakening with EMS evaluation with administration of sublingual nitroglycerin with resolution of chest pain following. #1. Chest pain with associated syncopal event with incidentally noted murmur onevaluation: EKG in ED SR with nonspecific ST-T changes with no acute evidence ofischemia, CXR w/ no concerning acute cardiopulmonary finding, initial trop 12 with repeat delta 43. Will admit to PCU, place on a monitored bed to assure no acute myocardial infarction with serial cardiac enzymes and EKGs. If repeat serial cardiac enzymes and EKGs remain unremarkable will pursue a.m. cardiac stress testing. Given syncopal event we will also request echocardiogram. FLP in AM. Magnesium level requested. If any changes or concerning events low threshold to involve cardiology. ASA, NG, morphine. #2. Suspected Chronic Kidney Disease Stage III: Admission BUN/Cr 23/1.32, GFR 56, baseline renal function unknown as patient has not been to a physician in 10to 20 years thus no lab comparisons, repeat BMP in AM to further elucidate chronicity. #3. Macrocytic anemia, unclear chronicity: Admission hemoglobin 11.2, MCV 95.3,no comparison labs available, will obtain iron panel, ferritin, vitamin B12 and folic acid levels to be cautious given patient high risk for poor follow-up given history of not following with any physician, will repeat CBC in AM. #4. Hyperglycemia, mild: Admission glucose 124, not markedly elevated but givenfor follow-up history be cautious obtain hemoglobin A1c. #5. Thrombocytopenia, unclear chronicity: Admission platelets 137, unclear if this is chronic or acute in nature as no comparison labs, will trend CBC. #6. Overweight: Weight loss and lifestyle changes encouraged. #7. DVT prophylaxis: Lovenox. #8. CODE status: Patient HCPOA and living will are not in place but he notes his youngest son who is present would be his decision-maker if medically necessary. Discussed CODE status at length including difference between FULL code, DNR-CCA and DNR-CC status. Following discussions about the differences in these status, requested DNR-CCA, no intubation status. Advanced Care Planning Face to Face Time: 16 minutes. Charges/Coding Visit Charges Inpatient E&M: 88357 Init Hosp L2 Procedures Hospitalists Procedures: 69744 Advncd Care Plan 30 Min 08/27/23 2230 <Electronically signed by Mely Redman MD> Cosigner Signature (if applicable): CC: Dr. Mely Redman MD; No Primary Care Physician~ Signed [facility] Work Phone: Chief Complaint and Reason for Visit Chief Complaint syncope CHEST PAIN Reason for Visit Syncope Unstable angina Chief Complaint syncope CHEST PAIN CHEST PAIN CHEST PAIN CHEST PAIN Reason for Visit Anemia Chest pain Hydronephrosis due to obstruction of ureter Kidney stone on left side Syncope Unstable angina Family History No Family History Records Found Relationship Condition Age at Onset Recorded Date/T jeaneth father Cardiac disease Unknown Coronary artery disease Unknown Hypertension Unknown Advance Directives No Advanced Directives Records Found Advance Directive Response Recorded Date/ Time Living Will No August 27, 2023 7: 21pm Power of Mechanic Chief No August 27, 2023 7:21pm Advance Directive Response Recorded Date/ Time Living Will No August 27, 2023 11 :26pm Power of Mechanic Chief No August 27, 2023 11:26pm Summary Purpose Additional Source Comments Care Teams (unrecognized sec tion and content) Team Status: Active Member Role Status Dates No Primary Care Physician Primary Care Provider Active Team Status: Active Member Role Status Dates No Primary Care Physician Primary Care Provider Active Dr. Arnulfo Sutherland , DO Emergency Provider Active Dr. Mely Redman MD Attending Provider Active Team Status: Active Member Role Status Dates No Primary Care Physician Primary Care Provider Active Dr. Arnulfo Sutherland , DO Emergency Provider Active Dr. Mely Redman MD Admit Provider, Attending Prov ider Active Team Status: Active Member Role Status Dates No Primary Care Physician Primary Care Provider Active Dr. Arnulfo Sutherland , DO Emergency Provider Active Dr. Mely Redman MD Admit Provider, Other Provider Active Dr. Valentin Moreland , DO Other Provider Active Dr. Esteban Torres MD Attending Provider Active Team Status: Active Member Role Status Dates No Primary Care Physician Primary Care Provider Active Dr. Arnulfo Sutherland DO Emergency Provider Active Dr. Mely Redman MD Admit Provider, Other Provider Active Dr. Valentin Moreland , DO Attending Provider, Other Provider Active Team Status: Inactive Member Role Status Dates No Primary Care Physician Primary Care Provider Active Dr. Arnulfo Sutheralnd , DO Emergency Provider Active Dr. Mely Redman MD Admit Provider, Other Provider Active Dr. Valentin Moreland , DO Attending Provider Active Goals (unrecognized section and content) Goals may be documented in a n alternate section (unrecognized sect ion and content) No Status Records Found INFORMATION SOURCE (unrecogn ized section and content) DATE CREATED AUTHOR 03/24/2024 [facility] FOR RECORDS PERTAINING TO PATIENTS WHO ARE OR HAVE BEEN ENROLLED IN A CHEMICAL DEPENDENCY/SUBSTANCEABUSE PROGRAM, SOME INFORMATION MAY BE OMITTED. This clinical summary was aggregated from multiple sources. Caution should be exercised in using it in the provision of clinical care. This summary normalizes information from multiple sources, and as a consequence, information in this document may materially change the coding, format and clinical context of patient data. In addition, data may be omitted in some cases. CLINICAL DECISIONS SHOULD BE BASED ON THE PRIMARY CLINICAL RECORDS. [employer] [facility]. provides no warranty or guarantee of the accuracy or completeness of information in this document.
[2025-04-27 12:25] LABS: Hematocrit 36.3 % (40-54); Hemoglobin 12.7 g/dL (13.0-16.5); Immature Granulocytes Count 0.020 X10^3/uL (0.0-0.0); Mean Corp Hgb Conc 35.0 g/dL (32-36); Mean Corpuscular Volume 93.8 fL (80-94); Mean Platelet Vol. 9.0 fl (6.2-12.0); NRBC Flagged by Analyzer 0 % (0-5); Platelet Count 120 K/mm3 (150-450); RBC Distribution Width CV 12.7 % (11.6-14.6); RBC Distribution Width SD 43.7 fl (35.1-43.9); Red Blood Count 3.87 M/mm3 (4.6-6.2); White Blood Count 8.0 K/mm3 (4.4-11.0)
[2025-04-27 12:29] LABS: Prothrombin Time (Protime)PT. 13.7 SECONDS (11.7-14.9)
[2025-04-27 12:49] LABS: Anion Gap 7 (7-18); BUN 19 mg/dL (4-19); BUN/Creat Ratio 14.6 RATIO (10-20); Calcium,Total 9.1 mg/dL (7.6-11.0); Carbon Dioxide 25.5 mmol/L (20.0-29.0); Chloride 106 mmol/L (96-106); Glucose 85 mg/dL (70-99); Potassium 4.4 mmol/L (3.5-5.1)
== END | disposition home or self-care (01) ==
PROVIDERS: Referring Provider Student in an Organized Health Care Education/Training Program; Visit Provider Student in an Organized Health Care Education/Training Program
DX: I35.0 Nonrheumatic aortic (valve) stenosis (principal)
CPT/HCPCS: 36415; 71046; 80048; 85025; 85610